=== PATIENT | female | born 1980 | race Two or more races ===

== ENCOUNTER 2020-07-03 12:38 | Emergency (ER) | payer OTHER, SELFPAY ==
--- NOTE | 2020-07-03 | US_ITS ---
EXAMINATION: US DIAGNOSTIC ULTRASOUND BREAST, LEFT CLINICAL INFORMATION: 40-year-old female with palpable fullness and tenderness left breast. Emergency room visit. COMPARISON: None. TECHNIQUE: Ultrasound left breast is targeted to the area of clinical concern using grayscale imaging and color Doppler. Imaging is performed emergently at the hospital to the emergency department and [facility]. FINDINGS: There is no solid mass or architectural abnormality. No skin thickening or edema tracking in soft tissue planes. No definite focal duct ectasia. There is a cyst 6:00 position 1 cm from nipple measuring 0.9 x 0.8 x 0.4 cm and residing within 0.5 cm from the skin. This shows fine internal septation and some geographic internal echogenicity without associated peripheral or internal color flow. There is another less complicated cyst 6:00 position 3 cm from nipple with several incomplete avascular fine internal septations and overall size 1.5 x 1.5 x 0.9 cm. This resides within 1.5 cm of the skin. IMPRESSION: There are 2 complicated cysts 6:00 position, the smaller has geographic internal echogenicity without color flow, possibly apocrine metaplasia. No solid mass or architectural abnormality. No edema are in soft tissue planes. ASSESSMENT: BI-RADS 3: Probably Benign RECOMMENDATION: 1. Patient's pain should be managed based on the clinical impression. 2. Diagnostic bilateral 3-D digital breast tomosynthesis. 3. Short interval 6-month follow-up targeted left breast ultrasound to reassess probable benign complicated cyst. This patient's information was entered into a reminder system with a target due date for their next mammogram.
[2020-07-03 13:14] VITALS: BP 102/64; PULSE 75; RESP 14; TEMP 37; O2SAT 95; BMI 25.6
--- NOTE | 2020-07-03 13:28 | ED_ITS ---
HPI - General Adult General Chief complaint: General Medical Stated complaint: breast pain Time Seen by Provider: 07/03/20 13:17 Source: patient Mode of arrival: ambulatory Limitations: no limitations History of Present Illness HPI narrative: Left breast pain, tenderness 'feels a bump x several days. Does not have PCP or [facility]. No fevers/chills. Also c/o cough, tested for COVID 06/25 as both son and are positive. No SOB/CP. Onset (ago): day(s) Location: chest (left breast ) Radiation: non-radiation Severity: mild Quality: sharp Pain Consistency: constant Relieving factors: none Exacerbating factors: none Associated symptoms: denies other symptoms Related Data Allergies Allergy/AdvReac Type Severity Reaction Status Date / Time midazolam [From VERSED] Allergy Unknown UNKNOWN Unverified 06/25/20 10:15 Opioids - Morphine Analogues Allergy Unknown HIVES Unverified 06/25/20 10:15 [OPIOIDS - MORPHINE ANALOGUES] sulfamethoxazole Allergy Unknown UNKNOWN Unverified 06/25/20 10:15 [From BACTRIM] trimethoprim [From BACTRIM] Allergy Unknown UNKNOWN Unverified 06/25/20 10:15 aspirin [ASA] Allergy Unknown Verified 07/03/20 13:14 Penicillins AdvReac Gastrointestinal Verified 07/03/20 13:14 Upset Review of Systems Review of Systems: Yes all other systems are reviewed and are negative Constitutional: Constitutional: Reports no additional constitutional complaints, Denies body ache(s), Denies chills, Denies fever(s), Denies headache(s) and Denies weakness Eyes: Eyes: Reports no additional eye complaints and Denies change in vision ENT: Reports system reviewed and no additional complaints, except as documented, Denies dizziness, Denies headache(s), Denies nasal congestion, Denies nasal discharge and Denies neck pain Cardiovascular: Cardiovascular: Reports no additional cardiovascular complaints, Denies chest pain, Denies leg edema and Denies dyspnea Respiratory: Respiratory: Reports no additional respiratory complaints, Denies change in phlegm color, Denies chest congestion, Reports cough, Denies hemoptysis, Denies excessive phlegm production and Denies dyspnea Gastrointestinal: Gastrointestinal: Reports no additional gastrointestinal complaints, Denies abdominal pain, Denies diarrhea, Denies nausea and Denies vomiting Genitourinary: Genitourinary: Reports no additional female genitourinary complaints and Denies urinary incontinence Musculoskeletal: Musculoskeletal: Reports no additional musculoskeletal complaints, Denies back pain, Denies arthralgias, Denies joint swelling, Denies neck pain, Denies numbness and Denies tingling Integumentary/Breasts: Skin/Breast: Reports system reviewed and no additional complaints, except as docu, Denies breast skin changes, Reports breast pain, Re ports breast mass, Denies change in breast shape and Denies rash Neurologic: Reports system reviewed and no additional complaints, except as documented, Denies Abnormal speech present, Denies dizziness, Denies head ache(s), Denies numbness, Denies tingling and Denies weakness PMFSH Past Medical History Attestation statement: The following information was validated with the patient. Source: obtained from family and nursing notes reviewed Medical History Asthma Cervical cancer Epilepsy Hypotension Miscarriage Other cyst of bone, right shoulder SVT (supraventricular tachycardia) Surgical History [place] teeth extracted Social History Social History Smoked in Last 30 Days: No Use of substances other than those prescribed or required for medical reasons: No Advance Directives: No Advance Directives Information Provided: Yes Physical Exam Vital Signs and I&O and Narrative: Vital Signs and I&O: Vital Signs Temp 98.6 F 07/03/20 13:14 Pulse 75 07/03/20 13:14 Resp 14 07/03/20 13:14 BP 102/64 07/03/20 13:14 Pulse Ox 95 07/03/20 13:14 Intake & Output 07/02/20 07/03/20 07/03/20 18:59 06:59 18:59 Weight 63.503 kg Body Mass Index 25.6 Const: General: cooperative, healthy appearing, comfortable and no acute distress Orientation/consciousness: patient oriented x3 Limitations: no limitations HENMT: Head: Yes normal to inspection Ears: hearing grossly normal bilaterally General nose exam: Normal external nose present Face and sinus: Yes normal facial exam Mouth: Normal oral and palatal mucosa present Throat: Yes posterior oropharynx normal Eyes: General: appearance normal, both eyes and all related structures Pupils: Equal, round and reactive pupils present Neck: Neck: Yes normal visual inspection Chest: Other: small firm lump noted to 6 o clock position just below areola. Tender to palp. No fluctuance or induration, no drainage from nipple or discoloration Chest palpation & inspection: normal inspection of the chest Breast/axilla inspection: normal inspection of the breasts and normal inspection of the axillae Breast/axilla palpation: normal palpation of the axillae and no axillary lymphadenopathy Resp: Effort & Inspection: normal respiratory effort Auscultation: clear to auscultation bilaterally Cardio: Rate: regular rate Rhythm: regular rhythm Peripheral pulses: Peripheral pulses 2+ throughout GI: Inspection: Yes normal to inspection Palpation (GI): Soft to palpation and nontender Auscultation: normal bowel sounds Back/Spine/Pelvis: Thoracic/Lumbar Spine: thoracic and lumbar spine normal to inspection Skin: General skin exam: no rashes or lesions noted Neuro: General: patient oriented x3, no focal motor deficits and normal sensation to monofilament Cranial nerves: Yes Equal, round and reactive pupils present Cognition (Neuro): normal cognition Speech: No Abnormal speech present Gait exam (Neuro): Normal gait present Motor exam (neuro): 5/5 motor strength present throughout Extrem: General: Yes normal to inspection Medical Decision Making MDM Narrative Medical decision making narrative: Left breast lump, will do US to r/o abscess. Also c/o cough-LS CTA. Stable saturation, recent COVID exposure with negative test. May be false negative test. 1530- ultrasound shows 2 complicated cysts 6:00 position, the smaller has geographic internal echogenicity without color flow, possibly apocrine metaplasia. No solid mass or architectural abnormality. No edema are in soft tissue planes. discussed findings with the patient. She can [facility]. also requesting repeat COVID testing. This was sent. Reviewed worrisome signs and symptoms and when to return to the emergency department. Comfortable discharge home. Imaging Data breast ultrasound: Attestation: I personally reviewed and interpreted this imaging study as follows: Radiologist's impression: FINDINGS: There is no solid mass or architectural abnormality. No skin thickening or edema tracking in soft tissue planes. No definite focal duct ectasia. There is a cyst 6:00 position 1 cm from nipple measuring 0.9 x 0.8 x 0.4 cm and residing within 0.5 cm from the skin. This shows fine internal septation and some geographic internal echogenicity without associated peripheral or internal color flow. There is another less complicated cyst 6:00 position 3 cm from nipple with several incomplete avascular fine internal septations and overall size 1.5 x 1.5 x 0.9 cm. This resides within 1.5 cm of the skin. IMPRESSION: There are 2 complicated cysts 6:00 position, the smaller has geographic internal echogenicity without color flow, possibly apocrine metaplasia. No solid mass or architectural abnormality. No edema are in soft tissue planes. ASSESSMENT: BI-RADS 3: Probably Benign RECOMMENDATION: 1. Patient's pain should be managed based on the clinical impression. 2. Diagnostic bilateral 3-D digital breast tomosynthesis. 3. Short interval 6-month follow-up targeted left breast ultrasound to reassess probable benign complicated cyst. This patient's information was entered into a reminder system with a target due date for their next mammogram. Discharge Plan Discharge Clinical Impression: Benign breast cyst in female Qualifiers: Laterality: left Qualified Code(s): N60.02 - Solitary cyst of left breast Patient Disposition: Home, Self-Care Instructions: Fibrocystic Breast Changes (ED) Additional Instructions: follow-up with the [facility] heat to the area motrin or tylenol as discussed your covid test will take 1-2 days [facility] [phone] Referrals: Physician,None [Primary Care Provider] - 2 days Interventions: ED Discharge Assessment Last Done: 07/03/20 15:57 Discharge Date/Time: 07/03/20 15:59
== END 2020-07-03 15:59 | disposition home or self-care (01) ==
PROVIDERS: Nurse Practitioner Family; Emergency Provider Emergency Medicine
DX: N60.02 Solitary cyst of left breast (principal); Z20.828 Contact with and (suspected) exposure to other viral communicable diseases; Z85.41 Personal history of malignant neoplasm of cervix uteri; Z79.82 Long term (current) use of aspirin; Z79.899 Other long term (current) drug therapy
CPT/HCPCS: 76642; 87635; 99284

== ENCOUNTER 2020-07-10 14:10 | Outpatient (REF) | payer OTHER, SELFPAY ==
[2020-07-10 15:11] LABS: MANUAL DIFF FLAG NO
[2020-07-10 15:15] LABS: Basophils Percent Auto 0.4 % (0-2); Eosinophils Absolute Auto 0.1 X10*3/uL (0.0-0.4); Eosinophils Percent Auto 1.1 % (0-4); Hematocrit 45.8 % (37-47); Hemoglobin 15.8 g/dl (12.0-16.0); Imm Gran Abs Auto 0.05 X10*3/uL (0.00-0.03); Imm Gran Pct Auto 0.6 % (0.0-0.4); Lymphocytes Absolute Auto 2.2 X10*3/uL (1.2-4.9); Lymphocytes Percent Auto 26.5 % (20-40); Mean Corpuscular HGB Conc 34.5 g/dl (31.0-35.0); Mean Corpuscular Hemoglobin 32.4 pg (27.0-33.0); Mean Corpuscular Volume 93.9 fL (80-98); Monocytes Absolute Auto 0.5 X10*3/uL (0.1-1.2); Neutrophils Absolute Auto 5.4 X10*3/uL (2.0-8.3); Neutrophils Percent Auto 65.4 % (45-73); Platelet Count 272 X10*3/uL (160-400); Red Blood Count 4.88 X10*6/uL (4.20-5.50); Red Cell Distribution Width 12.3 % (11.0-16.0); White Blood Count 8.2 X10*3/uL (4.8-10.8)
[2020-07-10 15:54] LABS: Alanine Aminotransferase 18 U/L (0-31); Albumin Level 4.3 g/dL (3.5-5.0); Alkaline Phosphatase 65 U/L (39-117); Anion Gap 10 (12-20); Aspartate Amino Transferase 20 U/L (5-31); Bilirubin Total 0.6 mg/dL (0.0-1.0); Blood Urea Nitrogen 8 mg/dL (9-16); C Reactive Protein 0.61 mg/dL (< or = 0.50); Calcium 9.1 mg/dL (8.4-10.2); Carbon Dioxide 28 mmol/L (22-29); Chloride 106 mmol/L (96-108); Cholesterol 199 mg/dL; Estimated Glomerular Filt Rate > 60; Glucose Random 81 mg/dL (60-115); Potassium 4.4 mmol/l (3.3-5.1); Sodium 140 mmol/L (135-145)
[2020-07-10 16:14] LABS: Free T4 (Free Thyroxine) 1.02 ng/dL (0.71-1.85); Thyroid Stimulating Hormone 0.82 mIU/mL (0.32-4.0)
[2020-07-10 16:35] LABS: Vitamin B12 466 pg/mL (200-900)
[2020-07-11 18:32] LABS: Lutenizing Hormone 11.3 mIU/mL
== END 2020-07-10 14:11 | disposition home or self-care (01) ==
LOC: HO.LAB 14:10
PROVIDERS: PCP Internal Medicine; Visit Provider Internal Medicine
DX: G40.909 Epilepsy, unspecified, not intractable, without status epilepticus (principal); R53.83 Other fatigue; J45.909 Unspecified asthma, uncomplicated; R35.1 Nocturia
CPT/HCPCS: 36415; 80053; 82465; 82607; 83001; 83002; 84439; 84443; 85025; 86140

== ENCOUNTER → 2020-07-22 13:17 | Outpatient (REF) | payer OTHER, SELFPAY ==
--- NOTE | 2020-07-22 13:30 | ECG_ITS ---
Hook-up date: 2020-07-22 13:35:00 Duration: :01:00 Test Indications: HX SVT Medications: [id number] QRS complexes * Ventricular ectopics which represent % of total QRS comp. 17 Supraventricular ectopics which represent <1 % of total QRS comp. * Paced QRS complexs which represent % of total QRS comp. VENTRICULAR ECTOPY * Isolated * Bigeminal Cycles * Couplets * Runs * Beats in Runs * Beats LONGEST at * BPM at :: -- * Beats FASTEST at * BPM at :: -- SUPRAVENTRICULAR ECTOPY 15 Isolated 1 Couplets 0 Runs 0 Beats in Runs * Beats LONGEST at * BPM at :: -- * Beats FASTEST at * BPM at :: -- HEART RATES 49 MIN at 04:35:04 2020-07-23 71 AVG 125 MAX at 13:55:46 2020-07-22 LONGEST RR 1.2960 secs at 04:34:58 2020-07-23 S-T LEVELS Channel 1 - 128 mm at 13:35:00 2020-07-22 - 128 mm at 13:35:00 2020-07-22 Channel 2 - 128 mm at 13:35:00 2020-07-22 - 128 mm at 13:35:00 2020-07-22 Channel 3 - 128 mm at 03:25:41 -- - 128 mm at 03:25:41 Baseline rhythm is nsr. There are rare pac's but no sustained runs of svt, No pvc's noted. min and max hr were within acceptable limits. no entries in diary. nml test without indications for any intervention Referred By: Zac Segura Overread By: SHAN SEGURA MD
== END ==
LOC: HO.CARD 13:17
PROVIDERS: PCP Internal Medicine; Visit Provider Internal Medicine
DX: I47.1 Supraventricular tachycardia (principal)
CPT/HCPCS: 93226

== ENCOUNTER 2020-07-23 11:37 | Outpatient (REF) | payer OTHER, SELFPAY ==
--- NOTE | 2020-07-23 | MM_ITS ---
EXAMINATION: MM DIAGNOSTIC DIGITAL BREAST TOMOSYNTHESIS, BILATERAL US DIAGNOSTIC ULTRASOUND BREAST, LEFT CLINICAL INFORMATION: 40-year-old with pain inferior periareolar left breast, recent ER visit with targeted ultrasound. No prior mammography. No family history breast cancer. No discharge. The lifetime risk of breast cancer based on the Tyrer-Cuzick Model is 12%. COMPARISON: Targeted left breast ultrasound 07/03/2020. No prior mammography (current exam represents baseline diagnostic mammography). TECHNIQUE: Digital breast tomosynthesis is performed in both the craniocaudal and mediolateral oblique views along with computer-aided detection (CAD). Synthesized 2D images are generated from the tomosynthesis. Additional exaggerated left CC view is provided. Ultrasound left breast is targeted to the medial breast as follow-up to today's mammographic finding. In addition, repeat imaging performed subareolar inferior left breast in area of symptoms. Grayscale imaging and color Doppler are performed without and with harmonics. FINDINGS: The breasts are heterogeneously dense, which may obscure small masses (ACR BI-RADS breast composition Category c). There is oval smooth mass with obscured margins mid 8:00 left breast measuring approximately 1.8 x 1.4 cm. Smaller nodularity is noted 6:00 retroareolar breast corresponding to the cyst seen on recent targeted ultrasound. The right breast shows no mass. Neither breast shows architectural abnormality. The bilateral axilla and skin contours are unremarkable. There is no skin thickening or coarsening of the Bryon's ligaments. Ultrasound targeted to the medial breast demonstrates a simple cyst 9:00 position 4 cm from nipple corresponding to the mass on mammography and measuring 1.6 x 1.5 x 1.0 cm. Cyst is anechoic with increased through-transmission of sound and circumscribed margins. Additional imaging in area of pain anterior inferior left breast again demonstrates a complicated cyst 6:00 position 3 cm from nipple with avascular internal septations measuring 1.4 cm. Again, there is a 1 cm complicated cyst subareolar 6:00 position with some peripheral geographic echogenicity likely apocrine. There is no peripheral or internal color flow. There is no intrahepatic ductal color flow. No skin thickening or edema tracking in the soft tissue planes. No abscess. Results are discussed with the patient at time of visit. Management plan is for short interval six-month follow-up left ultrasound for the anterior inferior complicated cysts initially planned. Mammography in 12 months. MM/MM tomosynthesis diagnostic BI IMPRESSION: 1. No mammographic evidence of malignancy or inflammatory changes. 2. Mildly complicated cyst anterior inferior left breast similar to recent emergency ultrasound 07/03/2020. Benign cyst 9:00 left breast. No inflammatory changes. ASSESSMENT: BI-RADS 3: Probably Benign RECOMMENDATION: 1. Patient's breast pain should be managed based on the clinical impression. 2. Otherwise, follow-up targeted left breast ultrasound in 6 months. This patient's information was entered into a reminder system with a target due date for their next mammogram.
== END 2020-07-23 11:38 | disposition home or self-care (01) ==
LOC: HO.MAMMO 11:37
PROVIDERS: PCP Internal Medicine; Visit Provider Internal Medicine
DX: N63.15 Unspecified lump in the right breast, overlapping quadrants (principal)
CPT/HCPCS: 76642; 77062; 77066

== ENCOUNTER 2020-11-04 10:29 | Outpatient (REF) | payer OTHER, SELFPAY ==
--- NOTE | ~2020-11-04 | XR_ITS ---
EXAMINATION: XR CERVICAL SPINE XR THORACIC SPINE XR LUMBAR SPINE CLINICAL INFORMATION: Pain. Question osteoarthritis. COMPARISON: None TECHNIQUE: AP, lateral, open-mouth, and bilateral oblique views of the cervical spine. AP and lateral views of the thoracic spine. AP, lateral, and coned-down views of the lumbar spine. FINDINGS: CERVICAL SPINE: Anterior fusion hardware at C4-C5. No acute hardware or osseous fracture. No periarticular lucency to suggest loosening or infection. Osseous fusion of the C4 and C5 vertebral bodies. Straightening of the normal cervical lordosis, which may be positional or related to muscular spasm. No acute fracture or subluxation. No loss of vertebral body or intervertebral disc height. No lytic or blastic osseous lesion. Unremarkable prevertebral soft tissues. Normal atlantoaxial alignment. THORACIC SPINE: Normal vertebral body alignment. The thoracic kyphosis is maintained. No acute fracture or subluxation. No loss of vertebral body or intervertebral disc height. No lytic or blastic osseous lesion. The visualized lungs are clear. No abnormal soft tissue calcification. LUMBAR SPINE: Normal vertebral body alignment. The lumbar lordosis is maintained. Minimal loss of anterior vertebral body height at L3, which could indicate a minimal age indeterminant compression fracture. Superior endplate Schmorl's nodes at L2, L3, and L4. Tiny anterior endplate osteophytes at L3-L4. No concerning lytic or blastic osseous lesion. No abnormal soft tissue calcification. XR/XR cervical spine min 6V IMPRESSION: Cervical spine: Anterior fusion hardware at C4-C5 without evidence of complication. No acute osseous abnormality. Straightening of the normal cervical lordosis, which may be positional or related to muscular spasm. Thoracic spine: Unremarkable examination. Lumbar spine: Minimal loss of anterior vertebral body height at L3, which could indicate a minimal age indeterminate compression fracture. Superior endplate Schmorl's nodes at L2, L3, and L4. Minimal degenerative disc disease at L3-L4.
--- NOTE | ~2020-11-04 | XR_ITS ---
EXAMINATION: XR KNEE, RIGHT XR KNEE, LEFT CLINICAL INFORMATION: Edema. Question osteoarthritis. COMPARISON: None TECHNIQUE: AP, tunnel, lateral, and sunrise views of the right and left knee. FINDINGS: RIGHT KNEE: Tiny patellofemoral marginal osteophytes. No joint space narrowing. No osseous erosion. No fracture or dislocation. No significant joint effusion. Tiny superior patellar enthesophytes. LEFT KNEE: Tiny patellofemoral marginal osteophytes. No joint space narrowing. No osseous erosion. No fracture or dislocation. No significant joint effusion. No abnormal soft tissue calcification. XR/XR knee RT 4V IMPRESSION: Right knee: Minimal patellofemoral arthrosis. Left knee: Minimal patellofemoral arthrosis.
--- NOTE | ~2020-11-04 | XR_ITS ---
EXAMINATION: XR HAND, RIGHT XR HAND, LEFT CLINICAL INFORMATION: Pain. Question osteoarthritis. COMPARISON: None TECHNIQUE: AP, oblique, and lateral views of the right and left hand. FINDINGS: Right hand: No fracture or dislocation. Normal carpal alignment. No significant joint space narrowing or marginal osteophytes. No osseous erosion. No periarticular osteopenia. No abnormal soft tissue calcification. Left hand: No fracture or dislocation. Normal carpal alignment. No significant joint space narrowing or marginal osteophytes. No osseous erosion. No periarticular osteopenia. No abnormal soft tissue calcification. XR/XR hand LT 2V IMPRESSION: Right hand: Unremarkable examination. Left hand: Unremarkable examination.
--- NOTE | ~2020-11-04 | XR_ITS ---
EXAMINATION: XR KNEE, RIGHT XR KNEE, LEFT CLINICAL INFORMATION: Edema. Question osteoarthritis. COMPARISON: None TECHNIQUE: AP, tunnel, lateral, and sunrise views of the right and left knee. FINDINGS: RIGHT KNEE: Tiny patellofemoral marginal osteophytes. No joint space narrowing. No osseous erosion. No fracture or dislocation. No significant joint effusion. Tiny superior patellar enthesophytes. LEFT KNEE: Tiny patellofemoral marginal osteophytes. No joint space narrowing. No osseous erosion. No fracture or dislocation. No significant joint effusion. No abnormal soft tissue calcification. XR/XR knee LT 4V IMPRESSION: Right knee: Minimal patellofemoral arthrosis. Left knee: Minimal patellofemoral arthrosis.
--- NOTE | ~2020-11-04 | XR_ITS ---
EXAMINATION: XR HAND, RIGHT XR HAND, LEFT CLINICAL INFORMATION: Pain. Question osteoarthritis. COMPARISON: None TECHNIQUE: AP, oblique, and lateral views of the right and left hand. FINDINGS: Right hand: No fracture or dislocation. Normal carpal alignment. No significant joint space narrowing or marginal osteophytes. No osseous erosion. No periarticular osteopenia. No abnormal soft tissue calcification. Left hand: No fracture or dislocation. Normal carpal alignment. No significant joint space narrowing or marginal osteophytes. No osseous erosion. No periarticular osteopenia. No abnormal soft tissue calcification. XR/XR hand RT min 3V IMPRESSION: Right hand: Unremarkable examination. Left hand: Unremarkable examination.
--- NOTE | ~2020-11-04 | XR_ITS ---
EXAMINATION: XR CERVICAL SPINE XR THORACIC SPINE XR LUMBAR SPINE CLINICAL INFORMATION: Pain. Question osteoarthritis. COMPARISON: None TECHNIQUE: AP, lateral, open-mouth, and bilateral oblique views of the cervical spine. AP and lateral views of the thoracic spine. AP, lateral, and coned-down views of the lumbar spine. FINDINGS: CERVICAL SPINE: Anterior fusion hardware at C4-C5. No acute hardware or osseous fracture. No periarticular lucency to suggest loosening or infection. Osseous fusion of the C4 and C5 vertebral bodies. Straightening of the normal cervical lordosis, which may be positional or related to muscular spasm. No acute fracture or subluxation. No loss of vertebral body or intervertebral disc height. No lytic or blastic osseous lesion. Unremarkable prevertebral soft tissues. Normal atlantoaxial alignment. THORACIC SPINE: Normal vertebral body alignment. The thoracic kyphosis is maintained. No acute fracture or subluxation. No loss of vertebral body or intervertebral disc height. No lytic or blastic osseous lesion. The visualized lungs are clear. No abnormal soft tissue calcification. LUMBAR SPINE: Normal vertebral body alignment. The lumbar lordosis is maintained. Minimal loss of anterior vertebral body height at L3, which could indicate a minimal age indeterminant compression fracture. Superior endplate Schmorl's nodes at L2, L3, and L4. Tiny anterior endplate osteophytes at L3-L4. No concerning lytic or blastic osseous lesion. No abnormal soft tissue calcification. XR/XR lumbar spine 2-3V IMPRESSION: Cervical spine: Anterior fusion hardware at C4-C5 without evidence of complication. No acute osseous abnormality. Straightening of the normal cervical lordosis, which may be positional or related to muscular spasm. Thoracic spine: Unremarkable examination. Lumbar spine: Minimal loss of anterior vertebral body height at L3, which could indicate a minimal age indeterminate compression fracture. Superior endplate Schmorl's nodes at L2, L3, and L4. Minimal degenerative disc disease at L3-L4.
--- NOTE | ~2020-11-04 | XR_ITS ---
EXAMINATION: XR CERVICAL SPINE XR THORACIC SPINE XR LUMBAR SPINE CLINICAL INFORMATION: Pain. Question osteoarthritis. COMPARISON: None TECHNIQUE: AP, lateral, open-mouth, and bilateral oblique views of the cervical spine. AP and lateral views of the thoracic spine. AP, lateral, and coned-down views of the lumbar spine. FINDINGS: CERVICAL SPINE: Anterior fusion hardware at C4-C5. No acute hardware or osseous fracture. No periarticular lucency to suggest loosening or infection. Osseous fusion of the C4 and C5 vertebral bodies. Straightening of the normal cervical lordosis, which may be positional or related to muscular spasm. No acute fracture or subluxation. No loss of vertebral body or intervertebral disc height. No lytic or blastic osseous lesion. Unremarkable prevertebral soft tissues. Normal atlantoaxial alignment. THORACIC SPINE: Normal vertebral body alignment. The thoracic kyphosis is maintained. No acute fracture or subluxation. No loss of vertebral body or intervertebral disc height. No lytic or blastic osseous lesion. The visualized lungs are clear. No abnormal soft tissue calcification. LUMBAR SPINE: Normal vertebral body alignment. The lumbar lordosis is maintained. Minimal loss of anterior vertebral body height at L3, which could indicate a minimal age indeterminant compression fracture. Superior endplate Schmorl's nodes at L2, L3, and L4. Tiny anterior endplate osteophytes at L3-L4. No concerning lytic or blastic osseous lesion. No abnormal soft tissue calcification. XR/XR thoracic spine 2V IMPRESSION: Cervical spine: Anterior fusion hardware at C4-C5 without evidence of complication. No acute osseous abnormality. Straightening of the normal cervical lordosis, which may be positional or related to muscular spasm. Thoracic spine: Unremarkable examination. Lumbar spine: Minimal loss of anterior vertebral body height at L3, which could indicate a minimal age indeterminate compression fracture. Superior endplate Schmorl's nodes at L2, L3, and L4. Minimal degenerative disc disease at L3-L4.
[2020-11-04 13:43] LABS: C Reactive Protein 0.85 mg/dL (< or = 0.50); Rheumatoid Factor < 15.0 IU/mL (<15.0)
[2020-11-05 09:53] LABS: Calcium (PTHI) 9.1 mg/dL (8.6-10.2); PTHI 59 pg/mL (14-64)
[2020-11-06 11:57] LABS: Anti Nuclear Antibody Pattern Nuclear, Homogeneous; Anti Nuclear Antibody Screen POSITIVE (NEGATIVE); Anti Nuclear Antibody Titer 1:40 titer
== END 2020-11-04 10:30 | disposition home or self-care (01) ==
LOC: HO.LAB 10:29
PROVIDERS: PCP Internal Medicine; Visit Provider Internal Medicine
DX: M54.9 Dorsalgia, unspecified (principal); M54.2 Cervicalgia; M79.643 Pain in unspecified hand; R60.9 Edema, unspecified
CPT/HCPCS: 36415; 72052; 72070; 72100; 73120; 73130; 73564; 83970; 86038; 86039; 86140; 86431

== ENCOUNTER 2020-11-15 15:16 | Outpatient (REF) | payer OTHER, SELFPAY ==
[2020-11-15 16:28] LABS: MANUAL DIFF FLAG NO
[2020-11-15 16:36] LABS: Basophils Percent Auto 0.2 % (0-2); Eosinophils Absolute Auto 0.1 X10*3/uL (0.0-0.4); Eosinophils Percent Auto 0.9 % (0-4); Hematocrit 46.8 % (37-47); Hemoglobin 16.1 g/dl (12.0-16.0); Imm Gran Abs Auto 0.04 X10*3/uL (0.00-0.03); Imm Gran Pct Auto 0.4 % (0.0-0.4); Lymphocytes Absolute Auto 2.2 X10*3/uL (1.2-4.9); Lymphocytes Percent Auto 24.1 % (20-40); Mean Corpuscular HGB Conc 34.4 g/dl (31.0-35.0); Mean Corpuscular Hemoglobin 31.4 pg (27.0-33.0); Mean Corpuscular Volume 91.4 fL (80-98); Mean Platelet Volume 9.6 fL (9.4-12.3); Monocytes Absolute Auto 0.5 X10*3/uL (0.1-1.2); Monocytes Percent Auto 5.7 % (2-11); Neutrophils Absolute Auto 6.2 X10*3/uL (2.0-8.3); Neutrophils Percent Auto 68.7 % (45-73); Platelet Count 260 X10*3/uL (160-400); Red Blood Count 5.12 X10*6/uL (4.20-5.50); Red Cell Distribution Width 11.9 % (11.0-16.0); White Blood Count 9.1 X10*3/uL (4.8-10.8)
[2020-11-15 16:57] LABS: Alanine Aminotransferase 12 U/L (0-31); Albumin Level 4.5 g/dL (3.5-5.0); Alkaline Phosphatase 61 U/L (39-117); Anion Gap 15 (12-20); Aspartate Amino Transferase 14 U/L (5-31); Bilirubin Total 0.7 mg/dL (0.0-1.0); Blood Urea Nitrogen 8 mg/dL (9-16); C Reactive Protein 0.53 mg/dL (< or = 0.50); Carbon Dioxide 24 mmol/L (22-29); Chloride 108 mmol/L (96-108); Estimated Glomerular Filt Rate > 60; Glucose Random 80 mg/dL (60-115); Glucose Urine UA NEG (NEG); Leukocyte Esterase Urine TRACE (NEG); Nitrite Urine NEG (NEG); Sodium 143 mmol/L (135-145); Specific Gravity - Urine >= 1.030 (1.005-1.025); Total Protein 7.2 g/dL (6.5-8.0); UACC Culture Trigger YES; Urine Blood 1+ (NEG); Urine Ketones NEG (NEG); Urine Protein NEG (NEG-TRACE)
[2020-11-15 16:58] LABS: Color Urine YELLOW
[2020-11-15 16:59] LABS: Appearance Urine CLOUDY
[2020-11-15 17:10] LABS: Bacteria Urine 2+ /LPF; Mucus Urine 2+ /LPF; Squamous Epithelial Cell Urine 2+ /LPF
[2020-11-15 17:13] LABS: HCG Quantitative < 2 mIU/mL
== END 2020-11-15 15:17 | disposition home or self-care (01) ==
LOC: HO.LAB 15:16
PROVIDERS: PCP Internal Medicine; Visit Provider Internal Medicine
DX: R10.9 Unspecified abdominal pain (principal); N91.2 Amenorrhea, unspecified; Z87.898 Personal history of other specified conditions
CPT/HCPCS: 36415; 80053; 81001; 81003; 84702; 85025; 86140; 87086

== ENCOUNTER 2020-11-25 13:57 | Outpatient (REF) | payer OTHER, SELFPAY ==
--- NOTE | ~2020-11-25 | US_ITS ---
EXAMINATION: ULTRASOUND PELVIS COMPLETE CLINICAL INFORMATION: Pelvic pain COMPARISON: None TECHNIQUE: Transabdominal and transvaginal ultrasound of the pelvis is performed. FINDINGS: The uterus is anteverted and anteflexed measuring 7.1 cm in length, 3.0 cm in AP and 4.2 cm in transverse dimension. Endometrial thickness is 0.73 cm. The uterus is homogeneous in echotexture. Small nabothian cysts are seen in the cervix. Right ovary measures 1.85 x 1.79 minutes 2.36 cm and volume 4.09 mL. There is anechoic cyst measuring 1.4 x 1.2 x 1.2 cm. Left ovary measures 2.82 x 2.69 x 3.8 cm and volume 20.4 mL. There is anechoic cyst measuring 3.5 x 2.5 x 3.5 cm. There is no free fluid in the cul-de-sac. US/US pelvic complete IMPRESSION: Small nabothian cysts in the cervix. The uterus is unremarkable. Bilateral small ovarian cysts.
--- NOTE | ~2020-11-25 | US_ITS ---
EXAMINATION: ULTRASOUND PELVIS COMPLETE CLINICAL INFORMATION: Pelvic pain COMPARISON: None TECHNIQUE: Transabdominal and transvaginal ultrasound of the pelvis is performed. FINDINGS: The uterus is anteverted and anteflexed measuring 7.1 cm in length, 3.0 cm in AP and 4.2 cm in transverse dimension. Endometrial thickness is 0.73 cm. The uterus is homogeneous in echotexture. Small nabothian cysts are seen in the cervix. Right ovary measures 1.85 x 1.79 minutes 2.36 cm and volume 4.09 mL. There is anechoic cyst measuring 1.4 x 1.2 x 1.2 cm. Left ovary measures 2.82 x 2.69 x 3.8 cm and volume 20.4 mL. There is anechoic cyst measuring 3.5 x 2.5 x 3.5 cm. There is no free fluid in the cul-de-sac. US/US transvaginal IMPRESSION: Small nabothian cysts in the cervix. The uterus is unremarkable. Bilateral small ovarian cysts.
== END 2020-11-25 13:58 | disposition home or self-care (01) ==
LOC: HO.HMGCX 13:57
PROVIDERS: PCP Internal Medicine; Visit Provider Internal Medicine
DX: R10.2 Pelvic and perineal pain (principal); N91.2 Amenorrhea, unspecified
CPT/HCPCS: 76830; 76856

== ENCOUNTER 2020-12-05 07:47 | Outpatient (REF) | payer OTHER, SELFPAY ==
--- NOTE | ~2020-12-05 | US_ITS ---
EXAMINATION: US ABDOMEN COMPLETE CLINICAL INFORMATION: Right upper quadrant abdominal pain. Rule out gallbladder disease. COMPARISON: None TECHNIQUE: Real-time imaging of the abdominal viscera. FINDINGS: PANCREAS: The visualized pancreatic head and body are unremarkable. The tail is obscured by overlying bowel gas. ABDOMINAL AORTA: The proximal, mid, and distal segments are normal in caliber. INFERIOR VENA CAVA: Visualized portions are normal. LIVER: Normal. The liver is normal in size. The liver contour is normal. Parenchymal echogenicity is normal. No focal hepatic lesion. There is no intrahepatic biliary duct dilatation seen. GALLBLADDER: Normal. The gallbladder is physiologically distended without evidence of stones, sludge, polyps, wall thickening or pericholecystic fluid. COMMON BILE DUCT: Normal in caliber measuring 0.5 cm in diameter. RIGHT KIDNEY: Normal. No hydronephrosis. No renal calculi or focal parenchymal lesions. The kidney measures 10.4 cm in maximum dimension. LEFT KIDNEY: Normal. No hydronephrosis. No renal calculi or focal parenchymal lesions. The kidney measures 10.6 cm in maximum dimension. SPLEEN: Normal. The spleen measures 8.8 cm in maximum dimension. FREE FLUID: None. US/US abdomen complete IMPRESSION: No cholelithiasis, gallbladder wall thickening, or pericholecystic free fluid to suggest acute cholecystitis.
== END 2020-12-05 07:48 | disposition home or self-care (01) ==
LOC: HO.US 07:47
PROVIDERS: PCP Internal Medicine; Visit Provider Internal Medicine
DX: R10.11 Right upper quadrant pain (principal)
CPT/HCPCS: 76700

== ENCOUNTER 2020-12-05 08:20 | Outpatient (REF) | payer OTHER, SELFPAY | END 2020-12-05 08:21 | disposition home or self-care (01) | LOC: HO.LAB 08:20 | PROVIDERS: Visit Provider Internal Medicine | DX: Z20.822 Contact with and (suspected) exposure to COVID-19 (principal) | CPT/HCPCS: 36415; C9803; U0003; U0005 ==

== ENCOUNTER 2020-12-30 12:37 | Outpatient (REF) | payer OTHER, SELFPAY ==
--- NOTE | ~2020-12-30 | US_ITS ---
EXAMINATION: US DIAGNOSTIC ULTRASOUND BREAST, LEFT CLINICAL INFORMATION: Probable benign complicated cysts 6:00 periareolar left breast. Patient notes premenopausal cousin recently diagnosed with breast cancer. COMPARISON: Targeted ultrasound left breast 07/23/2020 and targeted ultrasound left breast from emergency rooms visit 07/03/2020, mammography 07/23/2020 (baseline diagnostic). TECHNIQUE: Ultrasound left breast is performed using grayscale imaging and color Doppler without and with harmonics. Imaging is targeted to the areas previously imaged with ultrasound. FINDINGS: There is no interval focal suspicious finding. No solid mass or architectural abnormality or focal duct ectasia. There is no skin thickening or edema tracking in soft tissue planes. The subareolar cyst 6:00 position 1 cm from nipple measures 0.8 x 0.5 cm compared with prior measurements 0.9 x 0.8 x 0.4 cm. There is no definite peripheral internal geographic echogenicity is noted on prior studies. Rather, finding may be related to macrolobulated shape with partial volume imaging of the rim. There is no interval solid component or internal or peripheral vascularity. The mildly complicated cyst 6:00 position 3 cm from nipple measures 1.4 x 0.6 cm. This shows fine internal avascular septation. No interval septation thickening or solid component. No associated color flow. There is a simple cyst again noted 9:00 position 4 cm from nipple measuring 2.0 x 2.0 x 0.8 cm compared with prior measurements 1.6 x 1.5 x 1.0 cm. No internal septation or solid component. Results are discussed with the patient and her at time of visit. US/US breast LT limited IMPRESSION: Mildly complicated periareolar cysts without significant change. ASSESSMENT: BI-RADS 3: Probably Benign RECOMMENDATION: Targeted ultrasound left breast at time of annual bilateral mammography, due in 6 months. This patient's information was entered into a reminder system with a target due date for their next mammogram.
== END 2020-12-30 12:38 | disposition home or self-care (01) ==
LOC: HO.MAMMO 12:37
PROVIDERS: Visit Provider Internal Medicine
DX: N60.02 Solitary cyst of left breast (principal)
CPT/HCPCS: 76642

== ENCOUNTER → 2021-02-04 07:39 | Outpatient (REF) | payer OTHER, SELFPAY ==
--- NOTE | ~2021-02-04 | NM_ITS ---
EXAMINATION: BILIARY TRACT IMAGING STUDY WITH CCK CLINICAL INFORMATION: Right upper quadrant pain.. COMPARISON: No previous biliary scan is available for comparison. Abdominal ultrasound dated 12/05/2020 is available for comparison.. TECHNIQUE: Serial gamma scintillation camera images were obtained over the abdomen for a total observation period of 90 minutes following the intravenous administration of 5 mCi Tc-99m Mebrofenin. FINDINGS: There is good concentration of activity in the liver by 5 minutes post injection. Biliary activity is visualized by 8 minutes. The gallbladder is well visualized by 35 minutes. Small bowel is well visualized by 15 minutes. At 60 minutes post radiopharmaceutical injection, a 30-minute infusion of 1.4 micrograms Sincalide was then begun and an additional 30 minutes of images were obtained. There is good emptying of the gallbladder. By the end of the study there is good clearance of activity from the liver and visualization of diffuse small bowel activity. The calculated gallbladder ejection fraction is 63% (normal gallbladder ejection fraction is greater than 35%). NM/NM hepatobiliary w pharm IMPRESSION: Visualization of the gallbladder is evidence of a patent cystic duct and strong evidence against the diagnosis of acute cholecystitis. The common bile duct is patent. Gallbladder emptying and ejection fraction are normal. Liver function appears normal.
== END ==
LOC: HO.NUCMED 07:39
PROVIDERS: PCP Internal Medicine; Visit Provider Internal Medicine
DX: R10.11 Right upper quadrant pain (principal)
CPT/HCPCS: 78227; A9537; J2805

== ENCOUNTER 2021-02-27 09:33 | Outpatient (REF) | payer OTHER, SELFPAY ==
[2021-02-27 13:00] LABS: Thyroid Stimulating Hormone 0.67 uIU/mL (0.32-4.0)
[2021-02-28 08:22] LABS: Follicle Stimulating Hormone 3.4 mIU/mL
[2021-03-08 16:31] LABS: HPV 16 RNA NOT DETECTED (NOT DETECTED); HPV mRNA E6/E7 rflx Detected (Not Detected)
== END 2021-02-27 09:34 | disposition home or self-care (01) ==
LOC: HO.LAB 09:33
PROVIDERS: PCP Internal Medicine; Visit Provider Advanced Practice Midwife
DX: Z01.419 Encounter for gynecological examination (general) (routine) without abnormal findings (principal); R23.2 Flushing; R10.2 Pelvic and perineal pain; N94.10 Unspecified dyspareunia; E28.2 Polycystic ovarian syndrome; N64.4 Mastodynia; R63.5 Abnormal weight gain; F17.210 Nicotine dependence, cigarettes, uncomplicated; Z68.25 Body mass index [BMI] 25.0-25.9, adult; Z88.4 Allergy status to anesthetic agent; Z91.030 Bee allergy status; Z88.5 Allergy status to narcotic agent; Z88.0 Allergy status to penicillin; Z91.013 Allergy to seafood; Z88.2 Allergy status to sulfonamides
CPT/HCPCS: 36415; 83001; 84443; 87624; 87625; 88142

== ENCOUNTER 2021-04-11 13:49 | Outpatient (REF) | payer OTHER, SELFPAY ==
--- NOTE | ~2021-04-11 | US_ITS ---
EXAMINATION: PELVIC ULTRASOUND CLINICAL INFORMATION: Pelvic and right lower quadrant pain. History of ovarian cyst. COMPARISON: Previous pelvic ultrasound November 2019 TECHNIQUE: Transabdominal and transvaginal pelvic ultrasound was performed. Transvaginal exam was performed for better visualization of the uterus and ovaries. FINDINGS: The uterus is anteverted and measures 7.3 x 3.4 x 4.3 cm in dimension. No focal uterine lesion is seen. Ventral thickness is upper normal in size measuring 1.4 cm. There are nabothian cysts in the cervix. The ovaries are normal-appearing. The right ovary measures 2.6 x 1.7 x 2.2 cm. The left ovary measures 2.4 x 1.4 x 2.1 cm. The previously identified 3.5 x 2.5 x 3.5 cm simple left ovarian cyst is no longer seen.There is no fluid in the pelvis. US/US pelvic and transvaginal IMPRESSION: Normal pelvic ultrasound. The previously identified 3.5 x 2.5 x 3.5 cm simple left ovarian cyst
== END 2021-04-11 13:50 | disposition home or self-care (01) ==
LOC: HO.HMGCX 13:49
PROVIDERS: PCP Internal Medicine; Visit Provider Internal Medicine
DX: R10.2 Pelvic and perineal pain (principal); N83.209 Unspecified ovarian cyst, unspecified side
CPT/HCPCS: 76830; 76856

== ENCOUNTER → 2021-04-14 10:46 | Outpatient (BNVA) | payer OTHER, SELFPAY | PROVIDERS: PCP Internal Medicine; Visit Provider Advanced Practice Midwife ==

== ENCOUNTER 2021-07-01 12:43 | Outpatient (REF) | payer OTHER, SELFPAY ==
--- NOTE | ~2021-07-01 | MM_ITS ---
EXAMINATION: MM DIAGNOSTIC DIGITAL BREAST TOMOSYNTHESIS, BILATERAL US DIAGNOSTIC ULTRASOUND BREAST, BILATERAL CLINICAL INFORMATION: 41-year-old due for yearly. Also follow-up probable benign complicated cyst subareolar left breast. Patient notes tenderness on right. Family history breast cancer, mother, diagnosed since prior imaging. The lifetime risk of breast cancer based on the Tyrer-Cuzick Model is 22%. COMPARISON: Mammography: 07/23/2020, targeted left breast ultrasound 07/03/2020, 07/23/2020, 12/30/2020 TECHNIQUE: Digital breast tomosynthesis is performed in both the craniocaudal and mediolateral oblique views along with computer-aided detection (CAD). Synthesized 2D images are generated from the tomosynthesis. Additional exaggerated right CC view is provided. Ultrasound left breast is targeted to the subareolar breast and medial aspect lower inner quadrant. Ultrasound right breast is targeted to the posterior outer quadrant. Grayscale imaging and color Doppler are performed without and with harmonics. FINDINGS: The breasts are heterogeneously dense, which may obscure small masses (ACR BI-RADS breast composition Category c). There is fibrocystic parenchymal pattern with smooth rounded contours. No architectural abnormality or abnormal calcifications. The axilla and skin contours are unremarkable. Nodularity subareolar left breast appears stable. The cyst lower inner left breast appears mildly increased. There is a new oval circumscribed mass 1.5 cm posterior outer right breast. Ultrasound left breast demonstrates incidental cyst 6:00 subareolar position measuring approximately 0.8 x 0.5 cm. There is no associated solid component or color flow. The dominant cyst 9:00 left breast is mildly increased in size with current measurements are 2.7 x 1.1 x 2.0 cm. Prior measurements are 2.0 x 0.8 x 2.0 cm. Ultrasound right breast demonstrates a simple cyst 8:00 position 7 cm from nipple measuring 1.6 x 0.9 cm. There is no solid mass or architectural abnormality. Results are discussed with the patient at time of visit. Options for genetic testing and additional adjunct screening with breast MRI was also included in the discussion. MM/MM tomosynthesis diagnostic BI IMPRESSION: 1. Fibrocystic parenchymal pattern. No mammographic evidence of malignancy. 2. Benign bilateral cysts on ultrasound. ASSESSMENT: BI-RADS 2: Benign RECOMMENDATION: 1. Routine annual mammography screening. 2. The lifetime risk of breast cancer based on the Tyrer-Cuzick Model is 22%. Additional annual adjunct screening with breast MRI may be of benefit in women with a risk score of 20% or greater. This patient's information was entered into a reminder system with a target due date for their next mammogram.
== END 2021-07-01 12:44 | disposition home or self-care (01) ==
LOC: HO.MAMMO 12:43
PROVIDERS: Visit Provider Internal Medicine
DX: N60.02 Solitary cyst of left breast (principal)
CPT/HCPCS: 76642; 77062; 77066

== ENCOUNTER → 2021-07-10 08:21 | Outpatient (BNVA) | payer OTHER, SELFPAY | PROVIDERS: PCP Internal Medicine; Referring Provider Internal Medicine; Visit Provider Surgery | DX: Z80.3 Family history of malignant neoplasm of breast (principal) | CPT/HCPCS: 99202 ==

== ENCOUNTER 2021-08-07 10:27 | Emergency (ER) | payer OTHER, MEDICAID, SELFPAY ==
--- NOTE | ~2021-08-07 | XR_ITS ---
EXAMINATION: XR CHEST CLINICAL INFORMATION: Chest pain COMPARISON: None TECHNIQUE: PA view of the chest was obtained. FINDINGS: No significant abnormality is noted involving the heart, lungs, mediastinum, bony thorax or soft tissues. Status post cervical spine surgery. XR/XR chest 1V IMPRESSION: No acute disease.
[2021-08-07 10:40] VITALS: BP 125/75; PULSE 76; RESP 18; TEMP 36.1; O2SAT 98; BMI 26.5
--- NOTE | 2021-08-07 11:03 | ECG_ITS ---
Test Reason : chest pain Blood Pressure : / mmHG Vent. Rate : 067 BPM Atrial Rate : 067 BPM P-R Int : 130 ms QRS Dur : 078 ms QT Int : 390 ms P-R-T Axes : 062 081 038 degrees QTc Int : 412 ms Normal sinus rhythm Nonspecific ST abnormality Inferior leads Abnormal ECG No previous ECGs available Referred By: Generic ED Physician Electronically Signed By:SHAN SEGURA MD
[2021-08-07 14:11] VITALS: BP 105/67; PULSE 62; RESP 16; O2SAT 99
--- NOTE | 2021-08-07 14:12 | ED_ITS ---
HPI - Abdominal Pain General Chief Complaint: Abdominal Pain Stated Complaint: chest & abd pain Time Seen by Provider: 08/07/21 13:49 Source: patient Mode of arrival: ambulatory Limitations: no limitations History of Present Illness HPI narrative: 41-year-old female who presents emergency department for evaluation of abdominal pain and dizziness. The patient states that she developed abdominal pain last night. He came on suddenly. She states that her abdomen felt swollen. She describes the pain as a gas bubble like pain which was mild to moderate intensity. She states that she had a bowel movement prior to coming into the emergency department which seemed to relieve her pain. She also states that this morning she was taking hot shower for approximately 5 minutes. She states that she yawned and then felt dizzy as if she was going to pass out. Her symptoms resolved and she did not lose consciousness. The patient went into work and complained of abdominal pain. 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 Her colleagues were concerned about her symptoms especially since she has a history of his seizure disorder advised her to leave work and go to the emergency department for evaluation. At the time my evaluation, the patient has no abdominal pain and no dizziness and states she feels at her baseline. Related Data Home Medications Medication Instructions Recorded Confirmed acetaminophen 650 mg 650 - 1,300 mg PO Q8H PRN 02/27/21 07/10/21 tablet,extended release epinephrine 0.3 mg/0.3 mL IM 02/27/21 07/10/21 injection, auto-injector ibuprofen 600 mg tablet 600 mg PO TID PRN 02/27/21 07/10/21 Allergies Allergy/AdvReac Type Severity Reaction Status Date / Time bee pollen Allergy Severe Anaphylaxis Verified 07/10/21 08:35 oxycodone Allergy Severe Hives Verified 07/10/21 08:35 shellfish derived Allergy Severe Anaphylaxis Verified 07/10/21 08:35 midazolam [From VERSED] Allergy Unknown UNKNOWN Verified 07/10/21 08:35 Opioids - Morphine Analogues Allergy Unknown HIVES Verified 07/10/21 08:35 [OPIOIDS - MORPHINE ANALOGUES] Sulfa (Sulfonamide Allergy Unknown Hives Verified 07/10/21 08:35 Antibiotics) sulfamethoxazole Allergy Unknown UNKNOWN Verified 07/10/21 08:35 [From BACTRIM] trimethoprim [From BACTRIM] Allergy Unknown UNKNOWN Verified 07/10/21 08:35 aspirin [ASA] Allergy Unknown Verified 07/10/21 08:35 Penicillins AdvReac Gastrointestinal Verified 07/10/21 08:35 Upset Review of Systems Review of Systems Yes all other systems are reviewed and are negative Physical Exam Vital Signs: Vital Signs: Last Vital Signs Temp 97 F 08/07/21 10:40 Pulse 76 08/07/21 10:40 Resp 18 08/07/21 10:40 BP 125/75 08/07/21 10:40 Pulse Ox 98 08/07/21 10:40 Body Mass Index 26.5 Const: General: cooperative and no acute distress Orientation/consciousness: oriented to person and oriented to place Limitations: no limitations HENMT: Head: Yes normal to inspection, Yes normocephalic and Yes atraumatic Ears: external ears normal General nose exam: Normal external nose present Face and sinus: Yes normal facial exam Mouth: Normal oral and palatal mucosa present Throat: Yes posterior oropharynx normal Eyes: General: appearance normal, both eyes and all related structures Pupils: Equal, round and reactive pupils present Neck: Neck: Yes normal visual inspection, Yes no lymphadenopathy, Yes trachea midline and Yes supple Chest: Chest palpation & inspection: normal inspection of the chest and normal palpation of entire chest wall Resp: Effort & Inspection: normal respiratory effort and able to speak in complete sentences Auscultation: clear to auscultation bilaterally Cardio: Rate: regular rate Rhythm: regular rhythm Heart sounds: S1 normal heart sound present, S2 normal heart sound present and no murmurs GI: Inspection: Yes normal to inspection Palpation (GI): Soft to palpation, nontender and no guarding Auscultation: normal bowel sounds : General: Yes no CVA tenderness Back/Spine/Pelvis: Back: no CVA tenderness Skin: General skin exam: no rashes or lesions noted Neuro: General: oriented to person and oriented to place Cranial nerves: Yes CN's II-XII intact bilaterally and Yes Equal, round and reactive pupils present Cognition (Neuro): normal cognition Motor exam (neuro): 5/5 motor strength present throughout Extrem: General: Yes normal to inspection Psych: Appearance: grossly normal Speech and movement: Normal speech and movement present Affect: normal affect Attitude: cooperative Thought process: Normal thought process present Thought content: Normal thought content present Course Course Course Narrative: 41-year-old female who presents emergency department for evaluation abdominal pain and dizziness. The abdominal pain started last night and resolved after she had a bowel movement prior to coming to the emergency department. The patient had dizziness while she was in the shower after she yawned this was a brief episode that resolved. Patient's vital signs were normal. Patient's physical examination was unremarkable. Chest x-ray was unremarkable. Twelve EKG revealed a sinus rhythm with a rate of 67 with no PACs, PVCs or ST segment elevation or depression. The patient was discharged home with printed and verbal instructions. She was advised return emergency department if her symptoms get worse or she develops any new symptoms are concerning to her pain MDM - Abdominal Pain ECG Data Attestation: I personally reviewed and interpreted this ECG as follows: Interpretation: 1055: Normal sinus rhythm rate of 67, normal UT interval, QRS interval and QTC duration, no ST segment elevation, no ST segment depression, inverted T-waves V1 and V2 which is nonspecific. This is a normal EKG. Discharge Plan Discharge Clinical Impression: Dizziness Abdominal pain Qualifiers: Abdominal location: generalized Qualified Code(s): R10.84 - Generalized abdominal pain Patient Disposition: Home, Self-Care Instructions: Abdominal Pain (ED) Additional Instructions: Your vital signs were normal. Your abdominal exam and neurologic exam were normal as well. Your 12 EKG was unremarkable. Your chest x-ray was normal. Follow-up with your doctor in 2 days. Please return to the emergency department if your symptoms get worse or if you develop any symptoms that are concerning to you. Please see work note. 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 Past surgical history: C4 through C5 spinal fusion. 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 She denies alcohol use. She does smoke marijuana daily and she states that she does this to help prevent seizures. She states that seizure medications gave her bad side effects and she has had no seizures since she has been smoking marijuana for the past year. Medical History Abnormal Pap smear of cervix Asthma Cervical cancer Cyst of right breast Epilepsy Family history of breast cancer Hypotension Miscarriage Other cyst of bone, right shoulder Ovarian cyst PCOS (polycystic ovarian syndrome) SVT (supraventricular tachycardia) Surgical History History of loop electrical excision procedure (LEEP) Hx of spinal surgery [place] teeth extracted Family History Family History Mother Breast cancer, Onset Age: 66 Social History Social History Alcohol intake: never Patient Tobacco Use Status: Current everyday Tobacco user Tobacco use type: Cigarette Cigarette Packs Per Day: 10 Substance Use Type: Marijuana Advance Directives: No Advance Directives Information Provided: Yes Patient : No Gender identity: Female
--- NOTE | 2021-08-07 14:33 | PC.NURSE ---
1st encounter with patient for dc purposes. PT AWAKE, ALERT AND ORIENTED X 3. PT DRESSED, SITTING ON STRETCHER. SKIN WARM AND DRY. RESP UNLABORED. DENIES N/V. NO C/O PAIN PRESENTLY. NEUROS INTACT. EVALUATED BY DR EASLEY. PLAN IS FOR DC HOME. PT AWARE AND AGREEABLE TO ED CARE PLAN.
== END 2021-08-07 14:35 | disposition home or self-care (01) ==
PROVIDERS: Emergency Provider Emergency Medicine Emergency Medical Services; PCP Internal Medicine
DX: R42 Dizziness and giddiness (principal); R10.84 Generalized abdominal pain; J45.909 Unspecified asthma, uncomplicated; G40.909 Epilepsy, unspecified, not intractable, without status epilepticus
CPT/HCPCS: 71045; 93005; 99283; 99284

== ENCOUNTER → 2021-08-20 08:48 | Outpatient (BNVA) | payer OTHER, SELFPAY | PROVIDERS: PCP Internal Medicine; Referring Provider Internal Medicine; Visit Provider Surgery | DX: Z80.3 Family history of malignant neoplasm of breast (principal) | CPT/HCPCS: 99212 ==

== ENCOUNTER 2021-08-27 17:34 | Outpatient (REF) | payer OTHER, SELFPAY ==
--- NOTE | ~2021-08-27 | XR_ITS ---
EXAMINATION: XR LUMBOSACRAL SPINE CLINICAL INFORMATION: Severe osteoarthritis COMPARISON: Lumbar spine October 2020 TECHNIQUE: Three views of the lumbosacral spine. FINDINGS: Stable slight compression of the anterior superior endplate of L3 unchanged since prior study of October 2020. No acute fracture or bone destruction. There are small Schmorl's nodes at the superior endplates of the L2, L3 and L4 vertebrae that are unchanged since prior study. Minimal anterior spur at the endplates at L3-L4. The facet joints are normal. No spondylolysis or spondylolisthesis. Normal sacroiliac joints. XR/XR lumbar spine 2-3V IMPRESSION: Stable chronic changes of lumbar spine. No interval change since October 2020.
== END 2021-08-27 17:35 | disposition home or self-care (01) ==
LOC: HO.XRAY 17:34
PROVIDERS: PCP Internal Medicine; Visit Provider Internal Medicine
DX: M47.816 Spondylosis without myelopathy or radiculopathy, lumbar region (principal)
CPT/HCPCS: 72100

== ENCOUNTER 2021-09-27 15:53 | Emergency (ER) | payer OTHER, SELFPAY | END 2021-09-27 18:21 | disposition left against medical advice (07) | PROVIDERS: Emergency Provider Emergency Medicine; PCP Internal Medicine | DX: U07.1 COVID-19 (principal) ==

== ENCOUNTER 2022-08-06 07:28 | Outpatient (REF) | payer OTHER, SELFPAY ==
--- NOTE | ~2022-08-06 | MM_ITS ---
EXAMINATION: MM SCREENING DIGITAL BREAST TOMOSYNTHESIS, BILATERAL CLINICAL INFORMATION: Screening. Asymptomatic. COMPARISON: Mammography: 1and studies dating back to 07/03/2020 TECHNIQUE: Digital breast tomosynthesis is performed in both the craniocaudal and mediolateral oblique views along with computer-aided detection (CAD). Synthesized 2D images are generated from the tomosynthesis. FINDINGS: The breasts are extremely dense, which lowers the sensitivity of mammography (ACR BI-RADS breast composition Category d). There is waxing and waning of multiple bilateral well-circumscribed densities with previous studies demonstrating numerous bilateral breast cysts. No region of architectural distortion identified. No suspicious grouping of microcalcifications is seen. MM/MM tomosynthesis screening BI IMPRESSION: Waxing and waning of bilateral circumscribed densities consistent with previously shown cysts. ASSESSMENT: BI-RADS 2: Benign RECOMMENDATION: Routine annual mammography screening. This patient's information was entered into a reminder system with a target due date for their next mammogram.
== END 2022-08-06 07:29 | disposition home or self-care (01) ==
LOC: HO.MAMMO 07:28
PROVIDERS: PCP Internal Medicine; Visit Provider Internal Medicine
DX: Z12.31 Encounter for screening mammogram for malignant neoplasm of breast (principal)
CPT/HCPCS: 77063; 77067

== ENCOUNTER 2023-05-14 11:00 | Emergency (ER) | payer OTHER, MEDICAID, SELFPAY ==
--- NOTE | 2023-05-14 11:07 | ECG_ITS ---
Test Reason : irregular heartbeat Blood Pressure : / mmHG Vent. Rate : 058 BPM Atrial Rate : 058 BPM P-R Int : 154 ms QRS Dur : 080 ms QT Int : 404 ms P-R-T Axes : 074 082 045 degrees QTc Int : 396 ms Sinus bradycardia Otherwise normal ECG When compared with ECG of 07-AUG-2021 10:55, Heart rate has decreased Referred By: Generic ED Physician Electronically Signed By:JARED PRICE
[2023-05-14 11:09] VITALS: BP 124/80; PULSE 63; RESP 19; TEMP 36.6; O2SAT 98; BMI 27.6
[2023-05-14 11:42] LABS: MANUAL DIFF FLAG NO
[2023-05-14 11:46] LABS: Appearance Urine Cloudy; Color Urine Yellow; Glucose Urine UA Negative (Negative); Leukocyte Esterase Urine Negative (Negative); Nitrite Urine Negative (Negative); PH 6.5 (5.0-9.0); Urine Blood Negative (Negative); Urine Ketones Negative (Negative); Urine Protein Negative (Neg-Trace)
[2023-05-14 11:47] LABS: Basophils Percent Auto 0.5 % (0-2); Eosinophils Absolute Auto 0.1 X10*3/uL (0.0-0.4); Eosinophils Percent Auto 0.9 % (0-4); Hemoglobin 15.6 g/dl (12.0-16.0); Imm Gran Abs Auto 0.02 X10*3/uL (0.00-0.03); Imm Gran Pct Auto 0.3 % (0.0-0.4); Lymphocytes Absolute Auto 1.8 X10*3/uL (1.2-4.9); Lymphocytes Percent Auto 28.2 % (20-40); Mean Corpuscular HGB Conc 34.7 g/dl (31.0-35.0); Mean Corpuscular Hemoglobin 30.7 pg (27.0-33.0); Mean Corpuscular Volume 88.6 fL (80.0-98.0); Mean Platelet Volume 8.4 fL (9.4-12.3); Monocytes Absolute Auto 0.4 X10*3/uL (0.1-1.2); Monocytes Percent Auto 6.9 % (2-11); Neutrophils Absolute Auto 4.1 x10*3/uL (2.0-8.3); Neutrophils Percent Auto 63.2 % (45-73); Platelet Count 241 X10*3/uL (160-400); Red Blood Count 5.08 X10*6/uL (4.20-5.50); White Blood Count 6.4 X10*3/uL (4.8-10.8)
[2023-05-14 12:06] LABS: B Type Natriuretic Peptide 10 pg/mL (<100)
[2023-05-14 12:07] LABS: Alanine Aminotransferase 12 U/L (0-31); Albumin Level 4.3 g/dL (3.5-5.0); Alkaline Phosphatase 57 U/L (39-117); Anion Gap 12 (12-20); Aspartate Amino Transferase 15 U/L (5-31); Bilirubin Total 0.6 mg/dL (0.0-1.0); Blood Urea Nitrogen 10 mg/dL (9-16); Calcium 9.3 mg/dL (8.4-10.2); Carbon Dioxide 27 mmol/L (22-29); Chloride 107 mmol/L (96-108); Creatinine Clr Calc Pharmacy 78.3; Estimated Glomerular Filt Rate > 60; Glucose Random 92 mg/dL (60-115); Magnesium 2.1 mg/dL (1.6-2.6); Sodium 142 mmol/L (135-145); Total Protein 7.5 g/dL (6.5-8.0)
[2023-05-14 12:09] LABS: Troponin-I High Sensitivity < 2.7 ng/L (<3.5-17.0)
[2023-05-14 12:22] LABS: HCG Quantitative < 2 mIU/mL
[2023-05-14 12:48] VITALS: BP 124/76; PULSE 64; RESP 19; O2SAT 98
--- NOTE | 2023-05-14 12:55 | ECG_ITS ---
Test Reason : irregular hr repeat Blood Pressure : / mmHG Vent. Rate : 051 BPM Atrial Rate : 051 BPM P-R Int : 148 ms QRS Dur : 078 ms QT Int : 418 ms P-R-T Axes : 063 075 032 degrees QTc Int : 385 ms Sinus bradycardia Otherwise normal ECG When compared with ECG of 14-MAY-2023 11:14, No significant change was found Referred By: Roxane Abdullahi Electronically Signed By:JARED PRICE
--- NOTE | 2023-05-14 13:32 | ED_ITS ---
HPI - General Adult General Chief complaint: General Medical Stated complaint: irregular heart beats Time Seen by Provider: 05/14/23 17:18 Source: patient and old records reviewed Mode of arrival: ambulatory Limitations: no limitations History of Present Illness HPI narrative: Patient is a 43 year old assigned female at with a history of asthma presenting to the emergency department today concerned that she is going in and out of SVT. 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 Patient states that she is also having episodes of hypotension where her blood pressure bottoms out and she gets dizzy. Patient denies any abdominal pain, nausea, vomiting, fever, chills, blurry vision, double vision, loss of vision, chest pain, difficulty breathing, shortness of breath, back pain, night sweats, pain with urination, increased urinary frequency, increased urinary urgency, blood in her urine or stool, syncope or a near syncopal episode, recent trauma or falls, bowel incontinence, bladder incontinence, bowel retention, bladder retention, or any other complaints at this time. Onset (ago): month(s) Relieving factors: none Exacerbating factors: none Associated symptoms: denies other symptoms Treatments prior to arrival: none Related Data Home Medications Medication Instructions Recorded Confirmed acetaminophen 650 mg 650 - 1,300 mg PO Q8H PRN 02/27/21 08/20/21 tablet,extended release epinephrine 0.3 mg/0.3 mL IM 02/27/21 08/20/21 injection, auto-injector ibuprofen 600 mg tablet 600 mg PO TID PRN pain 02/27/21 08/20/21 Allergies Allergy/AdvReac Type Severity Reaction Status Date / Time bee pollen Allergy Severe Anaphylaxis Verified 05/14/23 11:09 oxycodone Allergy Severe Hives Verified 05/14/23 11:09 shellfish derived Allergy Severe Anaphylaxis Verified 05/14/23 11:09 midazolam [From VERSED] Allergy Unknown UNKNOWN Verified 05/14/23 11:09 Opioids - Morphine Analogues Allergy Unknown HIVES Verified 05/14/23 11:09 [OPIOIDS - MORPHINE ANALOGUES] Sulfa (Sulfonamide Allergy Unknown Hives Verified 05/14/23 11:09 Antibiotics) sulfamethoxazole Allergy Unknown UNKNOWN Verified 05/14/23 11:09 [From BACTRIM] trimethoprim [From BACTRIM] Allergy Unknown UNKNOWN Verified 05/14/23 11:09 aspirin [ASA] Allergy Unknown Verified 05/14/23 11:09 Penicillins AdvReac Gastrointestinal Verified 05/14/23 11:09 Upset Review of Systems Constitutional: Constitutional: Reports no additional constitutional complaints, Denies chills, Denies fever(s) and Denies night sweats Eyes: Eyes: Reports no additional eye complaints, Denies blurry vision, Denies change in vision, Denies diplopia, Denies eye discharge, Denies loss of vision and Denies eye pain ENT: Reports dizziness (intermittent) Cardiovascular: Cardiovascular: Reports no additional cardiovascular complaints, Denies chest pain, Denies lightheadedness, Denies Loss of Consciousness, Reports palpitations (intermittently) and Denies dyspnea Respiratory: Respiratory: Reports no additional respiratory complaints and Denies dyspnea Gastrointestinal: Gastrointestinal: Reports no additional gastrointestinal complaints, Denies abdominal pain, Denies melena, Denies hematochezia, Denies change in bowel habits and Denies change in stool character Genitourinary: Genitourinary: Denies hematuria, Denies urinary frequency, Denies dysuria, Denies urinary incontinence, Denies urinary hesitancy and Denies urinary urgency Musculoskeletal: Musculoskeletal: Reports no additional musculoskeletal complaints, Denies numbness and Denies tingling Neurologic: Reports dizziness (intermittent), Denies loss of vision, Denies numbness and Denies tingling Psychiatric: Psychiatric: Reports no additional psychiatric complaints Endocrine: Endocrine: Reports no additional endocrine complaints and Reports palpitations (intermittently) Hematologic/Lymphatic: Hematologic/Lymphatic: Reports no additional hematologic/lymphatic complaints Allergic/Immunologic: Allergic/Immunologic: Reports no additional allergic/immunologic complaints [facility] Past Medical History Attestation statement: The following information was validated with the patient. Source: old records reviewed and nursing notes reviewed Medical History Abnormal Pap smear of cervix Asthma Breast pain Cervical cancer Cyst of right breast Encounter for annual routine gynecological examination Epilepsy Family history of breast cancer Hot flashes Hypotension Miscarriage Other cyst of bone, right shoulder Ovarian cyst PCOS (polycystic ovarian syndrome) Pelvic pain in female Smoking SVT (supraventricular tachycardia) Surgical History History of loop electrical excision procedure (LEEP) Hx of spinal surgery [place] teeth extracted Family History Family History Mother Breast cancer, Onset Age: 66 Social History Social History Alcohol intake: never Patient Tobacco Use Status: Current everyday Tobacco user Tobacco use type: Cigarette Cigarette Packs Per Day: 10 Substance Use Type: Marijuana Advance Directives: No Advance Directives Information Provided: No Gender identity: Female Physical Exam ED Vital Signs: Vital Signs - 24 hr 05/14/23 11:09 05/14/23 12:48 Temperature 98 F Pulse Rate 63 64 Respiratory Rate 19 19 Blood Pressure 124/80 124/76 Pulse Oximetry 98 98 Oxygen Delivery Method Room Air Room Air BMI result Body Mass Index 27.6 Course Course Course Narrative: RME performed by Roxane Abdullahi PA-C. Patient is a 43 year old assigned female at presenting to the emergency department with intermittent dizziness/lightheadedness and concerns for going in and out of SVT. Labs ordered. Patient placed back in the waiting room pending room availability and results. Medical Decision Making Medical Decision Making [facility] Narrative: Patient is a 43 year old assigned female at with a history of asthma presenting to the emergency department today with concern for intermittent SVT and hypotension. Patient's limited physical exam performed in triage was unremarkable. Patient's blood work was unremarkable. Patient's urine showed no acute process. Patient's EKG was unremarkable. Patient eloped from the department before myself or any of the other emergency department providers could explain the patient's physical exam findings, test results, need or lack there of for further testing including imaging, treatment options or treatment plans. Differential Diagnosis Differential Diagnoses: The differential diagnosis associated with the presentation includes Arrythmia Irregular heartbeat Electrolyte imbalance Anxiety Admission/Observation Consideration of admission/observation: Escalation of care including admission/observation considered Patient would have been admitted to the hospital had her work up had any findings where hospital admission was appropriate, her clinical presentation warranted hospital admission, and she hadn't eloped from the department. Lab Data [facility] Lab Attestation statement: I reviewed the patient's lab results. My interpretation of these studies and their corresponding values is that they are grossly normal. 05/14/23 11:32 05/14/23 11:32 Labs: Lab Results 05/14/23 05/14/23 05/14/23 Range/Units 11:32 11:32 11:32 WBC 6.4 (4.8-10.8) X10*3/uL RBC 5.08 (4.20-5.50) X10*6/uL Hgb 15.6 (12.0-16.0) g/dl Hct 45.0 (37.0-47.0) % MCV 88.6 (80.0-98.0) fL MCH 30.7 (27.0-33.0) pg MCHC 34.7 (31.0-35.0) g/dl RDW 12.0 (11.0-16.0) % Plt Count 241 (160-400) X10*3/uL MPV 8.4 L (9.4-12.3) fL Immature Gran % (Auto) 0.3 (0.0-0.4) % Neut % (Auto) 63.2 (45-73) % Lymph % (Auto) 28.2 (20-40) % [place] % (Auto) 6.9 (2-11) % Eos % (Auto) 0.9 (0-4) % Baso % (Auto) 0.5 (0-2) % Lymph # (Auto) 1.8 (1.2-4.9) X10*3/uL [place] # (Auto) 0.4 (0.1-1.2) X10*3/uL Eos # (Auto) 0.1 (0.0-0.4) X10*3/uL Baso # (Auto) 0.0 (0.0-0.2) X10*3/uL Abs Immat Gran (auto) 0.02 (0.00-0.03) X10*3/uL Absolute Neuts (auto) 4.1 (2.0-8.3) x10*3/uL Absolute Nucleated RBC 0.000 (0.0-0.012) X10*3/uL Nucleated RBC % (auto) 0.0 (0.0-0.2) /100WBC Sodium 142 (135-145) mmol/L Potassium 4.0 (3.3-5.1) mmol/L Chloride 107 (96-108) mmol/L Carbon Dioxide 27 (22-29) mmol/L Anion Gap 12 (12-20) BUN 10 (9-16) mg/dL Creatinine 0.84 (0.5-1.4) mg/dL Estim Creat Clear Calc 78.3 Estimated GFR > 60 Random Glucose 92 (60-115) mg/dL Calcium 9.3 (8.4-10.2) mg/dL Magnesium 2.1 (1.6-2.6) mg/dL Total Bilirubin 0.6 (0.0-1.0) mg/dL AST 15 (5-31) U/L ALT 12 (0-31) U/L Alkaline Phosphatase 57 (39-117) U/L Troponin I High Sens < 2.7 (<3.5-17.0) ng/L B-Natriuretic Peptide (<100) pg/mL Total Protein 7.5 (6.5-8.0) g/dL Albumin 4.3 (3.5-5.0) g/dL TSH 1.20 (0.32-4.0) uIU/mL Beta HCG, Quant < 2 mIU/mL Urine Color Urine Appearance Urine pH (5.0-9.0) Ur Specific [place] (1.005-1.025) Urine Protein (Neg-Trace) mg/dL Urine Glucose (UA) (Negative) mg/dL Urine Ketones (Negative) mg/dL Urine Blood (Negative) Urine Nitrite (Negative) Ur Leukocyte Esterase (Negative) 05/14/23 05/14/23 Range/Units 11:32 11:32 WBC (4.8-10.8) X10*3/uL RBC (4.20-5.50) X10*6/uL Hgb (12.0-16.0) g/dl Hct (37.0-47.0) % MCV (80.0-98.0) fL MCH (27.0-33.0) pg MCHC (31.0-35.0) g/dl RDW (11.0-16.0) % Plt Count (160-400) X10*3/uL MPV (9.4-12.3) fL Immature Gran % (Auto) (0.0-0.4) % Neut % (Auto) (45-73) % Lymph % (Auto) (20-40) % [place] % (Auto) (2-11) % Eos % (Auto) (0-4) % Baso % (Auto) (0-2) % Lymph # (Auto) (1.2-4.9) X10*3/uL [place] # (Auto) (0.1-1.2) X10*3/uL Eos # (Auto) (0.0-0.4) X10*3/uL Baso # (Auto) (0.0-0.2) X10*3/uL Abs Immat Gran (auto) (0.00-0.03) X10*3/uL Absolute Neuts (auto) (2.0-8.3) x10*3/uL Absolute Nucleated RBC (0.0-0.012) X10*3/uL Nucleated RBC % (auto) (0.0-0.2) /100WBC Sodium (135-145) mmol/L Potassium (3.3-5.1) mmol/L Chloride (96-108) mmol/L Carbon Dioxide (22-29) mmol/L Anion Gap (12-20) BUN (9-16) mg/dL Creatinine (0.5-1.4) mg/dL Estim Creat Clear Calc Estimated GFR Random Glucose (60-115) mg/dL Calcium (8.4-10.2) mg/dL Magnesium (1.6-2.6) mg/dL Total Bilirubin (0.0-1.0) mg/dL AST (5-31) U/L ALT (0-31) U/L Alkaline Phosphatase (39-117) U/L Troponin I High Sens (<3.5-17.0) ng/L B-Natriuretic Peptide 10 (<100) pg/mL Total Protein (6.5-8.0) g/dL Albumin (3.5-5.0) g/dL TSH (0.32-4.0) uIU/mL Beta HCG, Quant mIU/mL Urine Color Yellow Urine Appearance Cloudy Urine pH 6.5 (5.0-9.0) Ur Specific [place] 1.020 (1.005-1.025) Urine Protein Negative (Neg-Trace) mg/dL Urine Glucose (UA) Negative (Negative) mg/dL Urine Ketones Negative (Negative) mg/dL Urine Blood Negative (Negative) Urine Nitrite Negative (Negative) Ur Leukocyte Esterase Negative (Negative) Independent Interpretation I performed an independent interpretation of an: EKG Interpretation: Vent. Rate: 058 BPM ? ? Atrial Rate: 058 BPM P-R Int: 154 ms? QRS Dur: 080 ms QT Int: 404 ms ? ? ? P-R-T Axes: 074 082 045 degrees QTc Int: 396 ms ? Sinus bradycardia Otherwise normal ECG When compared with ECG of 07-AUG-2021 10:55, Heart rate has decreased Electronically Signed By:LANE PRICE Dictated By: Lane Ball DO Signed By: Electronically signed by Lane Ball DO 05/14/23 1556 Vent. Rate: 051 BPM ? ? Atrial Rate: 051 BPM P-R Int: 148 ms? QRS Dur: 078 ms QT Int: 418 ms ? ? ? P-R-T Axes: 063 075 032 degrees QTc Int: 385 ms ? Sinus bradycardia Otherwise normal ECG When compared with ECG of 14-MAY-2023 11:14, No significant change was found ? Electronically Signed By:LANE PRICE Dictated By: Lane Ball DO Signed By: Electronically signed by Lane Ball DO 05/14/23 1556 Discharge Plan Discharge Clinical Impression: Paroxysmal tachycardia Patient Disposition: Elopement Prescriptions: No Action acetaminophen 650 mg tablet extended release 650 - 1,300 mg PO Q8H PRN ibuprofen 600 mg tablet 600 mg PO TID PRN (Reason: pain) epinephrine 0.3 mg/0.3 mL auto-injector IM Discharge Date/Time: 05/14/23 18:31
== END 2023-05-14 18:31 | disposition left against medical advice (07) ==
PROVIDERS: Physician Assistant Medical; Emergency Provider Emergency Medicine; PCP Internal Medicine
DX: I47.9 Paroxysmal tachycardia, unspecified (principal); F17.210 Nicotine dependence, cigarettes, uncomplicated; F12.90 Cannabis use, unspecified, uncomplicated; R10.2 Pelvic and perineal pain; C53.9 Malignant neoplasm of cervix uteri, unspecified; Z79.899 Other long term (current) drug therapy
CPT/HCPCS: 36415; 80053; 81003; 83735; 83880; 84443; 84484; 84702; 85025; 93005; 99283

== ENCOUNTER 2023-07-14 08:44 | Outpatient (REF) | payer OTHER, MEDICAID, SELFPAY ==
[2023-07-14 09:23] LABS: Appearance Urine Cloudy; Color Urine Yellow; Glucose Urine UA Negative (Negative); Leukocyte Esterase Urine Large (3+) (Negative); Nitrite Urine Positive (Negative); PH 6.5 (5.0-9.0); UMIC TRIGGER UACC YES; Urine Blood Trace (Negative); Urine Ketones Negative (Negative); Urine Protein Negative (Neg-Trace)
[2023-07-14 09:43] LABS: Bacteria Urine 4+ (None Seen); Hyaline Casts Urine >20 /LPF (0-2); RBC Urine >20 /HPF (0-2); UACC Culture Trigger YES; WBC Urine >50 /HPF (0-5)
== END 2023-07-14 08:45 | disposition home or self-care (01) ==
LOC: HO.LAB 08:44
PROVIDERS: PCP Internal Medicine; Visit Provider Internal Medicine
DX: R30.0 Dysuria (principal)
CPT/HCPCS: 81001; 87086; 87088; 87186

== ENCOUNTER 2023-08-12 07:52 | Outpatient (REF) | payer OTHER, SELFPAY ==
--- NOTE | ~2023-08-12 | MM_ITS ---
EXAMINATION: MM SCREENING DIGITAL BREAST TOMOSYNTHESIS, BILATERAL CLINICAL INFORMATION: Screening. Asymptomatic. COMPARISON: Mammography: 07/06/2022, 07/01/2021, 07/23/2020, targeted left breast ultrasound 07/03/2020, 07/23/2020, 12/30/2020 TECHNIQUE: Digital breast tomosynthesis is performed in both the craniocaudal and mediolateral oblique views along with computer-aided detection (CAD). Synthesized 2D images are generated from the tomosynthesis. FINDINGS: The breasts are heterogeneously dense, which may obscure small masses (ACR BI-RADS breast composition Category c). There are no suspicious masses, suspicious grouped calcifications, or areas of architectural distortion in either breast. There are bilateral circumscribed masses previously characterized as cysts. The parenchymal pattern is otherwise stable from prior exams. No axillary or skin abnormality. MM/MM tomosynthesis screening BI IMPRESSION: No mammographic evidence of malignancy. Stable benign findings. ASSESSMENT: BI-RADS BI-RADS 2 - Benign Findings RECOMMENDATION: Routine annual mammography screening. 1 year F/U This examination should not preclude the clinical evaluation of a suspicious palpable abnormality. This patient's information was entered into a reminder system with a target due date for their next mammogram.
== END 2023-08-12 07:53 | disposition home or self-care (01) ==
LOC: HO.MAMMO 07:52
PROVIDERS: PCP Internal Medicine; Visit Provider Internal Medicine
DX: Z12.31 Encounter for screening mammogram for malignant neoplasm of breast (principal)
CPT/HCPCS: 77063; 77067

== ENCOUNTER → 2023-08-12 08:15 | Outpatient (BNV) | payer OTHER, SELFPAY | PROVIDERS: PCP Internal Medicine; Visit Provider Radiology Diagnostic Radiology | DX: Z12.31 Encounter for screening mammogram for malignant neoplasm of breast (principal) | CPT/HCPCS: 77063; 77067 ==

== ENCOUNTER 2023-09-07 16:26 | Outpatient (REF) | payer OTHER, SELFPAY ==
--- NOTE | ~2023-09-07 | XR_ITS ---
EXAMINATION: XR CHEST CLINICAL INFORMATION: Abdominal pain COMPARISON: 08/07/2021 TECHNIQUE: 2 views of the chest were obtained. FINDINGS: The lungs are well-inflated. There is no gross pneumothorax. There is no pleural effusion. No focal consolidation to suggest pneumonia. XR/XR chest 2V IMPRESSION: No evidence of pneumonia.
[2023-09-07 16:40] LABS: MANUAL DIFF FLAG NO
[2023-09-07 17:04] LABS: Basophils Percent Auto 0.5 % (0-2); Eosinophils Absolute Auto 0.1 X10*3/uL (0.0-0.4); Eosinophils Percent Auto 0.8 % (0-4); Hematocrit 45.5 % (37.0-47.0); Hemoglobin 15.6 g/dl (12.0-16.0); Imm Gran Abs Auto 0.01 X10*3/uL (0.00-0.03); Imm Gran Pct Auto 0.2 % (0.0-0.4); Lymphocytes Absolute Auto 2.3 X10*3/uL (1.2-4.9); Lymphocytes Percent Auto 39.2 % (20-40); Mean Corpuscular HGB Conc 34.3 g/dl (31.0-35.0); Mean Corpuscular Hemoglobin 30.1 pg (27.0-33.0); Mean Corpuscular Volume 87.8 fL (80.0-98.0); Mean Platelet Volume 8.7 fL (9.4-12.3); Monocytes Absolute Auto 0.6 X10*3/uL (0.1-1.2); Monocytes Percent Auto 9.2 % (2-11); Neutrophils Percent Auto 50.1 % (45-73); Platelet Count 217 X10*3/uL (160-400); Red Blood Count 5.18 X10*6/uL (4.20-5.50); Red Cell Distribution Width 11.4 % (11.0-16.0)
[2023-09-07 17:11] LABS: Appearance Urine Clear; Color Urine Yellow; Glucose Urine UA Negative (Negative); Leukocyte Esterase Urine Negative (Negative); Nitrite Urine Negative (Negative); PH 5.5 (5.0-9.0); Specific Gravity - Urine >= 1.030 (1.005-1.025); Urine Blood Negative (Negative); Urine Ketones Negative (Negative); Urine Protein Trace mg/dL (Neg-Trace)
[2023-09-07 17:17] LABS: Bacteria Urine 1+ (None Seen); RBC Urine 0-2 /HPF (0-2); WBC Urine 0-5 /HPF (0-5)
[2023-09-07 17:43] LABS: Alanine Aminotransferase 12 U/L (0-31); Albumin Level 4.3 g/dL (3.5-5.0); Alkaline Phosphatase 68 U/L (39-117); Anion Gap 13 (12-20); Aspartate Amino Transferase 18 U/L (5-31); Bilirubin Total 0.3 mg/dL (0.0-1.0); Blood Urea Nitrogen 13 mg/dL (9-16); C Reactive Protein 1.25 mg/dL (< or = 0.50); Calcium 9.4 mg/dL (8.4-10.2); Carbon Dioxide 25 mmol/L (22-29); Chloride 107 mmol/L (96-108); Estimated Glomerular Filt Rate > 60; Glucose Random 120 mg/dL (60-115); Potassium 3.5 mmol/L (3.3-5.1); Sodium 141 mmol/L (135-145); Total Protein 7.6 g/dL (6.5-8.0)
[2023-09-07 17:47] LABS: Thyroid Stimulating Hormone 1.55 uIU/mL (0.32-4.0)
[2023-09-07 17:58] LABS: Vitamin B12 680 pg/mL (200-900)
[2023-09-07 18:00] LABS: Erythrocyte Sedimentation Rate 10 MM/HR (0-20)
== END 2023-09-07 16:27 | disposition home or self-care (01) ==
LOC: HO.XRAY 16:26
PROVIDERS: PCP Internal Medicine; Visit Provider Internal Medicine
DX: R10.9 Unspecified abdominal pain (principal); R07.81 Pleurodynia; R53.83 Other fatigue; E28.2 Polycystic ovarian syndrome
CPT/HCPCS: 36415; 71046; 80053; 81001; 82607; 84439; 84443; 85025; 85652; 86140; 87086

== ENCOUNTER 2023-11-11 22:04 | Emergency (ER) | payer OTHER, MEDICAID, SELFPAY ==
--- NOTE | ~2023-11-11 | US_ITS ---
EXAMINATION: US PELVIS CLINICAL INFORMATION: Left lower quadrant pain. LMP August, uncertain of exact dates. COMPARISON: Pelvic ultrasound 04/11/2021. TECHNIQUE: Ultrasound of the pelvis is performed using both transabdominal and transvaginal transducers along with Doppler. Transvaginal imaging is performed due to inadequate visualization transabdominally. FINDINGS: The uterus is anteverted measuring 7.2 x 2.7 x 4.3 cm. No uterine mass. The endometrium measures up to 0.8 cm in thickness. There are a few simple appearing cysts in the cervix measuring up to 1 cm, favoring to represent nabothian cysts. The right ovary measures 2.7 x 2.7 x 2.2 cm, 8.4 mL. The left ovary measures 2.1 x 2 x 1.5 cm, 3.3 mL. There is a complex 2.4 x 1.4 x 2.2 cm right ovarian cystic appearing lesion with heterogeneous debris and suggestion of retractile clot. There is a complex 1 x 1 x 1.2 cm left ovarian cystic appearing lesion with homogeneous internal echoes. No associated vascularity or solid nodules in these lesions. There is preserved flow to both ovaries on color and spectral Doppler at the moment of this examination. No free fluid. US/US pelvic ovarian doppler IMPRESSION: Complex bilateral ovarian cystic lesions; the left ovarian lesion could represent an endometrioma, and the right ovarian lesions could represent a hemorrhagic cyst, although appearance of the right ovarian lesion is somewhat atypical. Recommend a follow-up ultrasound in 6-12 weeks to ensure resolution.
--- NOTE | ~2023-11-11 | US_ITS ---
EXAMINATION: US PELVIS CLINICAL INFORMATION: Left lower quadrant pain. LMP August, uncertain of exact dates. COMPARISON: Pelvic ultrasound 04/11/2021. TECHNIQUE: Ultrasound of the pelvis is performed using both transabdominal and transvaginal transducers along with Doppler. Transvaginal imaging is performed due to inadequate visualization transabdominally. FINDINGS: The uterus is anteverted measuring 7.2 x 2.7 x 4.3 cm. No uterine mass. The endometrium measures up to 0.8 cm in thickness. There are a few simple appearing cysts in the cervix measuring up to 1 cm, favoring to represent nabothian cysts. The right ovary measures 2.7 x 2.7 x 2.2 cm, 8.4 mL. The left ovary measures 2.1 x 2 x 1.5 cm, 3.3 mL. There is a complex 2.4 x 1.4 x 2.2 cm right ovarian cystic appearing lesion with heterogeneous debris and suggestion of retractile clot. There is a complex 1 x 1 x 1.2 cm left ovarian cystic appearing lesion with homogeneous internal echoes. No associated vascularity or solid nodules in these lesions. There is preserved flow to both ovaries on color and spectral Doppler at the moment of this examination. No free fluid. US/US pelvic and transvaginal IMPRESSION: Complex bilateral ovarian cystic lesions; the left ovarian lesion could represent an endometrioma, and the right ovarian lesions could represent a hemorrhagic cyst, although appearance of the right ovarian lesion is somewhat atypical. Recommend a follow-up ultrasound in 6-12 weeks to ensure resolution.
[2023-11-11 22:37] VITALS: BP 125/77; PULSE 66; RESP 18; TEMP 36.1; O2SAT 96; BMI 29.3
--- NOTE | 2023-11-12 00:23 | MHC.EDTECH ---
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
[2023-11-12 00:27] LABS: Appearance Urine Cloudy; Color Urine Yellow; Glucose Urine UA Negative (Negative); Leukocyte Esterase Urine Negative (Negative); Nitrite Urine Negative (Negative); PH 5.5 (5.0-9.0); Specific Gravity - Urine >= 1.030 (1.005-1.025); Urine Blood Negative (Negative); Urine Ketones Trace mg/dL (Negative); Urine Protein Negative (Neg-Trace)
[2023-11-12 00:28] LABS: UPreg QC Valid YES; Urine Pregnancy NEGATIVE (NEGATIVE)
--- NOTE | 2023-11-12 01:09 | ED_ITS ---
HPI - Female Genitourinary General Chief complaint: Abdominal Pain Stated complaint: something burst? Time Seen by Provider: 11/12/23 01:07 Source: patient Mode of arrival: ambulatory Limitations: no limitations History of Present Illness HPI Narrative: Patient's history of ovarian cyst and endometriosis noticed sudden onset of pain in lower abdomen area just prior to arrival because the pain patient bent over and fell hitting her head to the ground without loss of consciousness slowly pain improved after arrival Related Data Home Medications Medication Instructions Recorded Confirmed acetaminophen 650 mg 650 - 1,300 mg PO Q8H PRN 02/27/21 08/20/21 tablet,extended release epinephrine 0.3 mg/0.3 mL IM 02/27/21 08/20/21 injection, auto-injector ibuprofen 600 mg tablet 600 mg PO TID PRN pain 02/27/21 08/20/21 Previous Rx's Medication Instructions Recorded ibuprofen 600 mg tablet 600 mg PO Q6H PRN fever or pain 11/12/23 #30 tabs Allergies Allergy/AdvReac Type Severity Reaction Status Date / Time bee pollen Allergy Severe Anaphylaxis Verified 11/11/23 22:37 oxycodone Allergy Severe Hives Verified 11/11/23 22:37 shellfish derived Allergy Severe Anaphylaxis Verified 11/11/23 22:37 midazolam [From VERSED] Allergy Unknown UNKNOWN Verified 11/11/23 22:37 Opioids - Morphine Analogues Allergy Unknown HIVES Verified 11/11/23 22:37 [OPIOIDS - MORPHINE ANALOGUES] Sulfa (Sulfonamide Allergy Unknown Hives Verified 11/11/23 22:37 Antibiotics) sulfamethoxazole Allergy Unknown UNKNOWN Verified 11/11/23 22:37 [From BACTRIM] trimethoprim [From BACTRIM] Allergy Unknown UNKNOWN Verified 11/11/23 22:37 aspirin [ASA] Allergy Unknown Verified 11/11/23 22:37 Penicillins AdvReac Gastrointestinal Verified 11/11/23 22:37 Upset Review of Systems Review of Systems: Yes all other systems are reviewed and are negative PMFSH Past Medical History Medical History Family history of breast cancer Cyst of right breast Ovarian cyst Pelvic pain in female Abnormal Pap smear of cervix Breast pain Hot flashes Smoking PCOS (polycystic ovarian syndrome) Encounter for annual routine gynecological examination Asthma Other cyst of bone, right shoulder Miscarriage Cervical cancer SVT (supraventricular tachycardia) Hypotension Epilepsy Surgical History Hx of spinal surgery History of loop electrical excision procedure (LEEP) [place] teeth extracted Family History Family History Mother Breast cancer, Onset Age: 66 Social History Social History Alcohol intake: never Patient Tobacco Use Status: Current everyday Tobacco user Tobacco use type: Cigarette Cigarette Packs Per Day: 10 Substance Use Type: Marijuana Advance Directives: No Advance Directives Information Provided: No Gender identity: Female Physical Exam Vital Signs: Vital Signs: Last Vital Signs Temp 97.7 F 11/12/23 01:18 Pulse 68 11/12/23 01:18 Resp 18 11/11/23 22:37 BP 106/70 11/12/23 01:18 Pulse Ox 98 11/12/23 01:18 O2 Del Method Room Air 11/12/23 01:18 BMI result Body Mass Index 29.3 Appearance: Alert. Oriented X3. Mild distress Eyes: No pallor or icterus ENT: Pharynx normal. Oral Mucosa moist AT NC Neck: Normal inspection. Neck supple. No midline tenderness CVS: Normal heart rate and rhythm. Pulses normal. Respiratory: No respiratory distress. Equal air entry bilateral, no wheezing/rales/rhonchi Abdomen: Soft mild suprapubic tenderness no guarding or rebound tenderness. Bowel sounds are present, no mass palpable, no CVA tenderness Skin: Skin warm and dry. Normal skin color. Normal skin turgor. Neuro: Oriented X 3. Medical Decision Making Medical Decision Making [facility] Narrative: Patient with right hemorrhagic cyst with a roommate who is likely the cause of the pain feeling much better at this time but stable will discharge patient home on ibuprofen Differential Diagnosis Differential Diagnoses: The differential diagnosis associated with the presentation includes Ovarian cyst/ovarian torsion/endometriosis Lab Data [facility] Lab Attestation statement: I reviewed the patient's lab results. Labs: Lab Results 11/12/23 Range/Units 00:19 Urine Color Yellow Urine Appearance Cloudy Urine pH 5.5 (5.0-9.0) Ur Specific [place] >= 1.030 H (1.005-1.025) Urine Protein Negative (Neg-Trace) mg/dL Urine Glucose (UA) Negative (Negative) mg/dL Urine Ketones Trace (Negative) mg/dL Urine Blood Negative (Negative) Urine Nitrite Negative (Negative) Ur Leukocyte Esterase Negative (Negative) Urine Test NEGATIVE (NEGATIVE) Independent Interpretation I performed an independent interpretation of an: Ultrasound Radiology Impression Discussion of test interpretation with radiology: I have reviewed the radiologist's reading. Radiologist Impression: US/US pelvic and transvaginal IMPRESSION: Complex bilateral ovarian cystic lesions; the left ovarian lesion could represent an endometrioma, and the right ovarian lesions could represent a hemorrhagic cyst, although appearance of the right ovarian lesion is somewhat atypical. Recommend a follow-up ultrasound in 6-12 weeks to ensure resolution. Discharge Plan Discharge Clinical Impression: Hemorrhagic cyst of right ovary Patient Disposition: Home, Self-Care Instructions: Ovarian Cyst (ED) Additional Instructions: Ibuprofen for pain Follow-up with your cost specialist Report to the ER if pain gets worse Prescriptions: New ibuprofen 600 mg tablet 600 mg PO Q6H PRN (Reason: fever or pain) Qty: 30 0RF No Action acetaminophen 650 mg tablet extended release 650 - 1,300 mg PO Q8H PRN ibuprofen 600 mg tablet 600 mg PO TID PRN (Reason: pain) epinephrine 0.3 mg/0.3 mL auto-injector IM
[2023-11-12 01:18] VITALS: BP 106/70; PULSE 68; TEMP 36.5; O2SAT 98
[2023-11-12] MEDS: Ibuprofen 600 MG TABLET PO (01:24)
== END 2023-11-12 01:27 | disposition home or self-care (01) ==
PROVIDERS: Emergency Provider Internal Medicine; PCP Internal Medicine
DX: N83.201 Unspecified ovarian cyst, right side (principal); R10.2 Pelvic and perineal pain; Z79.899 Other long term (current) drug therapy
CPT/HCPCS: 76830; 76856; 81003; 81025; 93975; 99284

== ENCOUNTER 2023-11-26 07:31 | Outpatient (REF) | payer OTHER, SELFPAY ==
[2023-11-27 05:41] LABS: CT PCR NOT DETECTED (Not Detect.); NG PCR NOT DETECTED (Not Detect.)
[2023-11-27 13:46] LABS: BV Int Neg Control Negative (Negative); BV Int Pos Control Positive (Positive)
[2023-12-02 09:33] LABS: HPV mRNA E6/E7 rflx Not Detected (Not Detected)
== END 2023-11-26 07:32 | disposition home or self-care (01) ==
LOC: HO.LNP 07:31
PROVIDERS: Obstetrics & Gynecology; PCP Internal Medicine; Visit Provider Advanced Practice Midwife
DX: Z01.419 Encounter for gynecological examination (general) (routine) without abnormal findings (principal); Z11.51 Encounter for screening for human papillomavirus (HPV); N93.9 Abnormal uterine and vaginal bleeding, unspecified; N83.299 Other ovarian cyst, unspecified side; R23.2 Flushing; R10.2 Pelvic and perineal pain; Z87.2 Personal history of diseases of the skin and subcutaneous tissue
CPT/HCPCS: 0353U; 81025; 87480; 87510; 87624; 87660; 88142

== ENCOUNTER 2023-11-26 07:31 | Outpatient (AMB) | payer OTHER, SELFPAY ==
[2023-11-26 07:35] VITALS: BMI 29.0
--- NOTE | 2023-11-26 07:35 | A.OFFVIS_ITS ---
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 Required: No Information Interpreted: non-clinical & clinical Airplane Patrol Pilot: Airplane Patrol Pilot Present (Latonya Prieto GOVEA) Accompanied by: Self / Same As Patient Allergies bee pollen Allergy (Severe, Verified 11/26/23 07:35) Anaphylaxis oxycodone Allergy (Severe, Verified 11/26/23 07:35) Hives shellfish derived Allergy (Severe, Verified 11/26/23 07:35) Anaphylaxis midazolam [From VERSED] Allergy (Unknown, Verified 11/26/23 07:35) UNKNOWN Opioids - Morphine Analogues [OPIOIDS - MORPHINE ANALOGUES] Allergy (Unknown, Verified 11/26/23 07:35) HIVES Sulfa (Sulfonamide Antibiotics) Allergy (Unknown, Verified 11/26/23 07:35) Hives sulfamethoxazole [From BACTRIM] Allergy (Unknown, Verified 11/26/23 07:35) UNKNOWN trimethoprim [From BACTRIM] Allergy (Unknown, Verified 11/26/23 07:35) UNKNOWN aspirin [ASA] Allergy (Verified 11/26/23 07:35) Unknown Penicillins Adverse Reaction (Verified 11/26/23 07:35) Gastrointestinal Upset Is last menstrual period known: Yes Last menstrual period: 11/12/23 HPI HPI Comments History of Present Illness Details Patient is here today for a follow-up emergency room visit she was previously seen for intense pelvic pain after feeling a pop, symptoms and ultrasound suggested of a recent ruptured ovarian cyst. Menses spacing in the last year skipping 1-2 months at a time. LMP 11/18/23 x4 days heavy for 2 days, prior LMP 08/2023. She reports hot flashes. 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 She reports having laser treatment many years ago when she was seen in [place]. History of PCOS and infertility. She has an adopted 2-year-old son. 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 Mammogram up-to-date 07/2023. [facility] Medical History (Updated 11/26/23 @ 08:47 by Astrid Vasques CNM) History of abnormal cervical Papanicolaou smear Family history of breast cancer Cyst of right breast Ovarian cyst Pelvic pain in female Abnormal Pap smear of cervix Breast pain Hot flashes Smoking PCOS (polycystic ovarian syndrome) Encounter for annual routine gynecological examination Asthma Other cyst of bone, right shoulder Miscarriage Cervical cancer SVT (supraventricular tachycardia) Hypotension Epilepsy Surgical History (Updated 11/26/23 @ 08:57 by Astrid Vasques CNM) Hx of spinal surgery History of loop electrical excision procedure (LEEP) [place] teeth extracted Family History Mother Breast cancer, Onset Age: 66 Social History Alcohol intake: never Patient Tobacco Use Status: Current everyday Tobacco user Tobacco use type: Cigarette Cigarette Packs Per Day: 10 Substance Use Type: Marijuana Gender identity: Female Female Reproductive History Menstrual Age of Menarche: 12 Date of last menstrual period: 11/12/23 Total pregnancies: 0 Review of Systems Const All systems reviewed & are unremarkable except as noted in HPI and below Reports as per HPI Eyes Reports no additional complaints ENT Reports no additional complaints Card Reports no additional complaints Resp Reports no additional complaints GI Reports as per HPI and Reports no additional complaints Reports as per HPI Musc Reports no additional complaints Skin/Breast Reports as per HPI Neuro Reports no additional complaints Psych Reports no additional complaints Endo Reports no additional complaints Ray/Lymph Reports no additional complaints Aller/Immun Reports no additional complaints Physical Exam Vital Signs: BMI result Body Mass Index 29.0 Const General: cooperative, healthy appearing, no acute distress, well developed and alert Orientation/consciousness: patient oriented x3 HEENT Head: Yes normal to inspection Eyes General: appearance normal, both eyes and all related structures Neck Neck: Yes normal visual inspection Thyroid: Thyroid normal Chest Chest palpation & inspection: normal inspection of the chest and other (no puckering, dimpling, peau de orange, retraction, discharge, masses) Breast/axilla inspection: normal inspection of the breasts Breast/axilla palpation: normal palpation of the breasts Resp Effort & Inspection: normal respiratory effort GI Inspection: Yes normal to inspection Palpation (GI): Soft to palpation Rectal Exam - Female: deferred General: Yes bladder normal to palpation External Female Exam: normal external appearance and normal appearance of the urethra Speculum Exam - Vagina: normal appearance of the vagina, normal palpation and normal vaginal discharge Speculum Exam - Cervix: normal appearance of the cervix, normal palpation and Nabothian cyst present Bimanual exam- vagina & uterus: normal bimanual exam, normal palpation, uterine size normal, bladder normal to palpation, normal palpation and non-tender Bimanual Exam- Adnexa, other: no masses Skin General skin exam: no rashes or lesions noted Rashes: no rashes Neuro General: patient oriented x3 Cognition (Neuro): normal cognition Extrem General: Yes normal to inspection Psych Attitude: cooperative Thought process: Normal thought process present Results AMB Test Urine AMB Test Urine Negative Last Edit by Latonya Moreau CMA on 08:25 Results Reviewed Results Reviewed: Laboratory Last Values Tst Clinic Negative 11/26/23 08:25 Assessment & Plan Assessment & Plan (1) History of abnormal cervical Papanicolaou smear: Code(s): Z87.42 - Personal history of other diseases of the female genital tract (2) Complex ovarian cyst: Code(s): N83.299 - Other ovarian cyst, unspecified side (3) Hot flashes: Code(s): R23.2 - Flushing (4) Pelvic pain: Code(s): R10.2 - Pelvic and perineal pain (5) Encounter for well woman exam with routine gynecological exam: Code(s): Z01.419 - Encounter for gynecological examination (general) (routine) without abnormal findings Plan Discussed: Ultrasound findings inclusive to complex ovarian cyst and possible endometrioma. Discussed endometriosis symptoms. Advised follow-up for ovarian cyst and endometrioma to monitor if any concerns may need a consult at [facility] if indicated and further studies and examination is to evaluate. Perimenopause versus menopause, monitor symptoms including hot flashes, transi tional period for her cycles would indicate skipping, after 1 year of no periods would be menopausal. Advised to call the office if there is any heavy prolonged periods or bleeding less than 3 weeks. She has not experienced these symptoms of menstrual irregularities. Advised if any pelvic pain that was severe to seek immediate care at the emergency room, if mild pain she can use an [id number] medication and try heating pad. She will schedule follow-up repeat ultrasound at 8 weeks and then return to the office to discuss the results and plan of care. Advised to call sooner if there is any other concerns. Current recommendations for pap smears per ASCCP guidelines. Breast awareness and periodic breast exams. Maintain a healthy lifestyle including a well balanced diet and routine e xercise. Mammogram yearly. Patient verbalizes understanding and agrees to the plan of care. She was given opportunity to ask questions and all questions were answered to the best of my ability. RTO in one year for annual artificial insemination technician examination. This note is constructed using voice recognition software. While every effort has been made to ensure accuracy, casino cashier manager errors may have been included. Orders: Orders US pelvic and transvaginal 8 Weeks N83.299 - Other ovarian cyst, unspecified side Pap Smear Today N93.9 - Abnormal uterine and vaginal bleeding, unspecified Bacterial Vaginosis Panel Today N93.9 - Abnormal uterine and vaginal bleeding, unspecified CT NG by PCR Today N93.9 - Abnormal uterine and vaginal bleeding, unspecified AMB HCG Urine Test Today Z32.02 - Encounter for test, result negative Coding Level of Care Code Est Pt Prev Care 40-64y(95493) Diagnoses History of abnormal cervical Papanicolaou smear Z87.42 Complex ovarian cyst N83.299 Hot flashes R23.2 Pelvic pain R10.2 Encounter for well woman exam with routine gynecological exam Z01.419
== END 2023-11-26 08:13 | disposition home or self-care (01) ==
PROVIDERS: PCP Internal Medicine; Visit Provider Advanced Practice Midwife
DX: Z01.419 Encounter for gynecological examination (general) (routine) without abnormal findings (principal); R10.2 Pelvic and perineal pain; R23.2 Flushing; Z87.42 Personal history of other diseases of the female genital tract; N83.299 Other ovarian cyst, unspecified side; Z32.02 Encounter for pregnancy test, result negative
CPT/HCPCS: 99396

== ENCOUNTER 2023-12-14 17:43 | Emergency (ER) | payer OTHER, SELFPAY ==
--- NOTE | ~2023-12-14 | CT_ITS ---
EXAMINATION: CT HEAD WITHOUT CONTRAST CLINICAL INFORMATION: Dizziness and headaches. COMPARISON: None. TECHNIQUE: Contiguous axial imaging was performed from the skullbase to vertex without intravenous administration of contrast. This CT examination was performed using dose optimization techniques as appropriate, variously including the following: *Automated exposure control *Adjustment of mA and/or kV according to patient size (this includes techniques or standardized protocols for targeted exams where dose is matched to indication/reason for exam; i.e. extremities or head) *Use of iterative reconstruction technique DLP: 596 mGy-cm. FINDINGS: There is no evidence of acute intracranial hemorrhage or territorial infarction. No abnormal mass effect or midline shift is seen. Estrada to white matter differentiation is well preserved. No extra-axial fluid collections are identified. The ventricles are normal in size. There is no abnormal attenuation within the brain parenchyma. The osseous structures and soft tissues are normal. The mastoid air cells and visualized portions of the paranasal sinuses are well aerated. CT/CT head/brain wo IV con IMPRESSION: No acute intracranial pathology.
[2023-12-14 17:46] VITALS: BP 115/68; PULSE 65; RESP 24; TEMP 37; O2SAT 98; BMI 25.8
--- NOTE | 2023-12-14 17:47 | ED.GENADULT ---
HPI - General Adult General Chief complaint: Neuro Symptoms/Deficit Stated complaint: stroke? nausea Related Data Home Medications Medication Instructions Recorded Confirmed acetaminophen 650 mg 650 - 1,300 mg PO Q8H PRN 02/27/21 08/20/21 tablet,extended release epinephrine 0.3 mg/0.3 mL IM 02/27/21 08/20/21 injection, auto-injector Previous Rx's Medication Instructions Recorded ibuprofen 600 mg tablet 600 mg PO Q6H PRN fever or pain 11/12/23 #30 tabs Allergies Allergy/AdvReac Type Severity Reaction Status Date / Time bee pollen Allergy Severe Anaphylaxis Verified 12/14/23 17:50 oxycodone Allergy Severe Hives Verified 12/14/23 17:50 shellfish derived Allergy Severe Anaphylaxis Verified 12/14/23 17:50 midazolam [From VERSED] Allergy Unknown UNKNOWN Verified 12/14/23 17:50 Opioids - Morphine Analogues Allergy Unknown HIVES Verified 12/14/23 17:50 [OPIOIDS - MORPHINE ANALOGUES] Sulfa (Sulfonamide Allergy Unknown Hives Verified 12/14/23 17:50 Antibiotics) sulfamethoxazole Allergy Unknown UNKNOWN Verified 12/14/23 17:50 [From BACTRIM] trimethoprim [From BACTRIM] Allergy Unknown UNKNOWN Verified 12/14/23 17:50 aspirin [ASA] Allergy Unknown Verified 12/14/23 17:50 Penicillins AdvReac Gastrointestinal Verified 12/14/23 17:50 Upset PMFSH Past Medical History Medical History (Updated 12/15/23 @ 20:13 by SAROJ Wilson) History of abnormal cervical Papanicolaou smear Family history of breast cancer Cyst of right breast Ovarian cyst Pelvic pain in female Abnormal Pap smear of cervix Breast pain Hot flashes Smoking PCOS (polycystic ovarian syndrome) Encounter for annual routine gynecological examination Asthma Other cyst of bone, right shoulder Miscarriage Cervical cancer SVT (supraventricular tachycardia) Hypotension Epilepsy Surgical History (Updated 11/26/23 @ 08:57 by Astrid Vasques CNM) Hx of spinal surgery History of loop electrical excision procedure (LEEP) [place] teeth extracted Family History Family History Mother Breast cancer, Onset Age: 66 Social History Social History Alcohol intake: never Patient Tobacco Use Status: Current everyday Tobacco user Tobacco use type: Cigarette Cigarette Packs Per Day: 10 Substance Use Type: Marijuana Advance Directives: No Advance Directives Information Provided: No Gender identity: Female Physical Exam ED Vital Signs: Vital Signs - 24 hr 12/14/23 17:46 Temperature 98.6 F Pulse Rate 65 Respiratory Rate 24 H Blood Pressure 115/68 Pulse Oximetry 98 Oxygen Delivery Method Room Air BMI result Body Mass Index 25.8 Course Course Course Narrative: This is an RME: Additional HPI, ROS, PE not included below will be deferred to primary provider. This is a [id number]-sly-female, with a hx of ovarian cysts, SVT, hypotension, eplilepsy, presenting to the ER with a complaints of neck pain and headache. Patient states that at 1:00PM she felt a shooting pain radiating from her neck and into her head. Reporting she is feeling disoriented . Reports that she vomited once. Denies hx of migraines. Endorses some dizziness. Patient appears to be anxious, she is fully neurologically intact, NIH score of 0. Plan: Labs, EKG, CT head Reevaluation(s) Reevaluation #1: Patient left prior to completing treatment Discharge Plan Discharge Clinical Impression: Headache Patient Disposition: Left W/O Completing Treatment Prescriptions: No Action ibuprofen 600 mg tablet 600 mg PO Q6H PRN (Reason: fever or pain) Qty: 30 0RF acetaminophen 650 mg tablet extended release 650 - 1,300 mg PO Q8H PRN epinephrine 0.3 mg/0.3 mL auto-injector IM Discharge Date/Time: 12/14/23 19:19
--- NOTE | 2023-12-14 17:58 | ECG_ITS ---
Test Reason : NORO SYMPTOM Blood Pressure : / mmHG Vent. Rate : 063 BPM Atrial Rate : 063 BPM P-R Int : 138 ms QRS Dur : 072 ms QT Int : 402 ms P-R-T Axes : 050 080 038 degrees QTc Int : 411 ms Normal sinus rhythm Nonspecific ST and T wave abnormality Borderline ECG When compared with ECG of 14-MAY-2023 13:00, No significant change was found Referred By: Carmelina Canales Electronically Signed By:MARY SERRANO
--- NOTE | 2023-12-14 19:00 | MHC.EDTECH ---
PATIENT EKG TAKEN AND WAS READ BY PROVIDER ,PATIENT REFUSED BLOOD WORK ,BRIM RAISER AWARE .
== END 2023-12-14 19:19 | disposition left against medical advice (07) ==
PROVIDERS: Emergency Provider Emergency Medicine; PCP Internal Medicine
DX: R51.9 Headache, unspecified (principal); R42 Dizziness and giddiness; R94.31 Abnormal electrocardiogram [ECG] [EKG]
CPT/HCPCS: 70450; 93005; 99283; 99284

== ENCOUNTER → 2023-12-14 17:58 | Outpatient (BNV) | payer OTHER, SELFPAY | PROVIDERS: Emergency Provider Emergency Medicine; PCP Internal Medicine; Visit Provider Internal Medicine | DX: R94.31 Abnormal electrocardiogram [ECG] [EKG] (principal) | CPT/HCPCS: 93010 ==

== ENCOUNTER 2024-01-07 11:16 | Outpatient (REF) | payer OTHER, SELFPAY ==
--- NOTE | ~2024-01-07 | US_ITS ---
EXAMINATION: US PELVIS CLINICAL INFORMATION: Follow-up ovarian cyst; the last menstrual period is not specified. COMPARISON: Pelvic ultrasound dated 11/11/2023. TECHNIQUE: Ultrasound of the pelvis is performed using both transabdominal and transvaginal transducers along with Doppler. Transvaginal imaging is performed due to inadequate visualization transabdominally. FINDINGS: Uterus: The uterus is anteverted and anteflexed. The uterus measures 6.1 x 3.0 x 4.3 cm. Nabothian cysts are seen within the cervix. The double wall endometrial thickness is 3 mm. The uterus is smooth in contour and has normal myometrial echogenicity. No visible fibroid. Adnexa: The right ovary is normal in size and echotexture, measuring 3.5 x 1.7 x 1.9 cm, volume 5.9 mL. The right ovary contains a 1.0 x 0.9 x 0.9 cm corpus luteum cyst. The previously noted 2.4 cm mildly complex right ovarian cyst is resolved in the interim. The left ovary is not visualized. The previously noted complex left ovarian cyst is not redemonstrated. No adnexal mass is seen. There is a very small amount of free fluid within the cul-de-sac. US/US pelvic and transvaginal IMPRESSION: 1. Previously noted complex bilateral ovarian cysts have resolved in the interim. 2. The right ovary contains a 1.0 cm corpus luteum cyst, which requires no imaging follow-up. 3. The left ovary is not visualized with certainty. 4. Nabothian cysts are seen within the cervix. 5. There is a very small amount of nonspecific free fluid within the cul-de-sac.
[2024-01-07 12:58] LABS: Erythrocyte Sedimentation Rate 10 MM/HR (0-20)
[2024-01-07 13:19] LABS: Alanine Aminotransferase 13 U/L (0-31); Albumin Level 4.1 g/dL (3.5-5.0); Alkaline Phosphatase 61 U/L (39-117); Anion Gap 9 (12-20); Aspartate Amino Transferase 16 U/L (5-31); Bilirubin Total 0.5 mg/dL (0.0-1.0); Blood Urea Nitrogen 9 mg/dL (9-16); C Reactive Protein 0.68 mg/dL (< or = 0.50); Calcium 9.1 mg/dL (8.4-10.2); Carbon Dioxide 26 mmol/L (22-29); Chloride 109 mmol/L (96-108); Cholesterol 184 mg/dL (<200); Estimated Glomerular Filt Rate > 60; Glucose Random 89 mg/dL (60-115); HDL Cholesterol 49 mg/dL (>40); LDL Cholesterol Calculated 121 mg/dL (<100); Potassium 4.4 mmol/L (3.3-5.1); Sodium 140 mmol/L (135-145); Total Protein 7.2 g/dL (6.5-8.0); Triglycerides 72 mg/dL (<150)
[2024-01-07 13:20] LABS: Vitamin D 25-OH Total 23.3 ng/mL (>30)
[2024-01-09 10:54] LABS: Anti Nuclear Antibody Screen NEGATIVE (NEGATIVE)
== END 2024-01-07 11:17 | disposition home or self-care (01) ==
LOC: HO.US 11:16
PROVIDERS: PCP Internal Medicine; Visit Provider Internal Medicine
DX: Z13.6 Encounter for screening for cardiovascular disorders (principal); M81.0 Age-related osteoporosis without current pathological fracture; E28.2 Polycystic ovarian syndrome
CPT/HCPCS: 36415; 76830; 76856; 80053; 80061; 82306; 82550; 85652; 86038; 86140

== ENCOUNTER 2024-01-21 16:07 | Outpatient (REF) | payer OTHER, SELFPAY ==
--- NOTE | ~2024-01-21 | US_ITS ---
EXAMINATION: US PELVIC AND TRANSVAGINAL CLINICAL INFORMATION: Ovarian cyst. COMPARISON: Pelvic ultrasound 2 weeks ago on 01/07/2024. TECHNIQUE: Ultrasound of the pelvis is performed using both transabdominal and transvaginal transducers along with Doppler. Transvaginal imaging is performed due to inadequate visualization transabdominally. FINDINGS: UTERUS: The uterus is anteverted and measures 7.0 x 3.4 x 4.1 cm. The double wall endometrial thickness is 11 mm. The uterus is smooth in contour and has normal myometrial echogenicity. No visible fibroid. Nabothian cysts are present in the cervix. ADNEXA: Both ovaries are visualized. There is normal color flow to the adnexa. There is no ovarian torsion. There is no pelvic ascites or fluid collection. Right ovary measures 3.9 x 1.8 x 1.1 cm, for a volume of 4.0 mL, and appears normal. Small normal follicular cysts are seen. Left ovary measures 2.4 x 1.3 x 2.2 cm, for a volume of 3.6 mL, and appears normal. cm. Small normal follicular cysts are present. US/US pelvic and transvaginal IMPRESSION: Normal pelvic ultrasound.
== END 2024-01-21 16:08 | disposition home or self-care (01) ==
LOC: HO.US 16:07
PROVIDERS: PCP Internal Medicine; Visit Provider Advanced Practice Midwife
DX: N83.299 Other ovarian cyst, unspecified side (principal)
CPT/HCPCS: 76830; 76856

== ENCOUNTER 2024-01-25 11:15 | Outpatient (REF) | payer OTHER, SELFPAY ==
[2024-01-25 13:15] LABS: MANUAL DIFF FLAG NO
[2024-01-25 13:29] LABS: Basophils Percent Auto 0.4 % (0-2); Eosinophils Absolute Auto 0.1 X10*3/uL (0.0-0.4); Eosinophils Percent Auto 0.7 % (0-4); Hematocrit 44.2 % (37.0-47.0); Hemoglobin 15.2 g/dl (12.0-16.0); Imm Gran Abs Auto 0.02 X10*3/uL (0.00-0.03); Imm Gran Pct Auto 0.3 % (0.0-0.4); Lymphocytes Absolute Auto 1.8 X10*3/uL (1.2-4.9); Lymphocytes Percent Auto 25.7 % (20-40); Mean Corpuscular HGB Conc 34.4 g/dl (31.0-35.0); Mean Corpuscular Hemoglobin 30.5 pg (27.0-33.0); Mean Corpuscular Volume 88.6 fL (80.0-98.0); Mean Platelet Volume 8.4 fL (9.4-12.3); Monocytes Absolute Auto 0.4 X10*3/uL (0.1-1.2); Monocytes Percent Auto 6.4 % (2-11); Neutrophils Absolute Auto 4.6 x10*3/uL (2.0-8.3); Neutrophils Percent Auto 66.5 % (45-73); Platelet Count 232 X10*3/uL (160-400); Red Blood Count 4.99 X10*6/uL (4.20-5.50); Red Cell Distribution Width 12.1 % (11.0-16.0); White Blood Count 6.9 X10*3/uL (4.8-10.8)
[2024-01-25 13:40] LABS: D Dimer High Sensitivity 164 NG/ML
== END 2024-01-25 11:16 | disposition home or self-care (01) ==
LOC: HO.10HDL 11:15
PROVIDERS: Visit Provider Internal Medicine
DX: R06.02 Shortness of breath (principal)
CPT/HCPCS: 36415; 85025; 85379

== ENCOUNTER 2024-02-04 07:39 | Outpatient (AMB) | payer OTHER, SELFPAY ==
--- NOTE | 2024-02-04 07:43 | MHC.OFFVIS ---
Vital Signs 02/04/24 07:45 Height 5 ft 6 in Weight 158 lb 11.725 oz BMI 25.6 BP 98/60 Intake Visit Reasons: Ultra sound follow up Submarine Worker Required: No Information Interpreted: non-clinical & clinical Business Development Representative: Business Development Representative Present Accompanied by: Self / Same As Patient Allergies bee pollen Allergy (Severe, Verified 02/04/24 07:46) Anaphylaxis oxycodone Allergy (Severe, Verified 02/04/24 07:46) Hives shellfish derived Allergy (Severe, Verified 02/04/24 07:46) Anaphylaxis midazolam [From VERSED] Allergy (Unknown, Verified 02/04/24 07:46) UNKNOWN Opioids - Morphine Analogues [OPIOIDS - MORPHINE ANALOGUES] Allergy (Unknown, Verified 02/04/24 07:46) HIVES Sulfa (Sulfonamide Antibiotics) Allergy (Unknown, Verified 02/04/24 07:46) Hives sulfamethoxazole [From BACTRIM] Allergy (Unknown, Verified 02/04/24 07:46) UNKNOWN trimethoprim [From BACTRIM] Allergy (Unknown, Verified 02/04/24 07:46) UNKNOWN aspirin [ASA] Allergy (Verified 02/04/24 07:46) Unknown Penicillins Adverse Reaction (Verified 02/04/24 07:46) Gastrointestinal Upset Is last menstrual period known: Yes Last menstrual period: 01/31/24 HPI Comments Details: Patient is here today for ultrasound follow-up, prior visit noted pelvic pain she reports it has since resolved and that her last period was normal. History of PCOS. She also reports that she has had some onset symptoms of dyspareunia with deep penetration not resolve with position changes at times. [facility] Medical History History of abnormal cervical Papanicolaou smear Family history of breast cancer Cyst of right breast Ovarian cyst Pelvic pain in female Abnormal Pap smear of cervix Breast pain Hot flashes Smoking PCOS (polycystic ovarian syndrome) Encounter for annual routine gynecological examination Asthma Other cyst of bone, right shoulder Miscarriage Cervical cancer SVT (supraventricular tachycardia) Hypotension Epilepsy Surgical History Hx of spinal surgery History of loop electrical excision procedure (LEEP) [place] teeth extracted Family History Mother Breast cancer, Onset Age: 66 Social History Alcohol intake: never Patient Tobacco Use Status: Current everyday Tobacco user Tobacco use type: Cigarette Cigarette Packs Per Day: 10 Substance Use Type: Marijuana Gender identity: Female Female Reproductive History Menstrual Age of Menarche: 12 Date of last menstrual period: 01/31/24 Review of Systems Const All systems reviewed & are unremarkable except as noted in HPI and below Endo Reports no additional complaints Physical Exam Vital Signs: Last Vital Signs BP 98/60 02/04/24 07:45 BMI result Body Mass Index 25.6 Const General: cooperative, healthy appearing and no acute distress Psych Appearance: well kempt Attitude: cooperative Thought process: Normal thought process present Results Reviewed Results Reviewed: [address] [address] Ultrasound Report Signed Patient: Georgie Valencia MR#: [id number] : 1980 Acct:[id number] Age/Sex: 43 / F ADM Date: 01/21/24 Loc: HO.US Attending Dr: Astrid Vasques CNM Ordering Physician: Astrid Vasques CNM Date of Service: 01/21/24 Procedure(s): US pelvic and transvaginal Accession Number(s): [id number] cc: Zac Noriega MD; Astrid Vasques CNM~ EXAMINATION: US PELVIC AND TRANSVAGINAL CLINICAL INFORMATION: Ovarian cyst. COMPARISON: Pelvic ultrasound 2 weeks ago on 01/07/2024. TECHNIQUE: Ultrasound of the pelvis is performed using both transabdominal and transvaginal transducers along with Doppler. Transvaginal imaging is performed due to inadequate visualization transabdominally. FINDINGS: UTERUS: The uterus is anteverted and measures 7.0 x 3.4 x 4.1 cm. The double wall endometrial thickness is 11 mm. The uterus is smooth in contour and has normal myometrial echogenicity. No visible fibroid. Nabothian cysts are present in the cervix. ADNEXA: Both ovaries are visualized. There is normal color flow to the adnexa. There is no ovarian torsion. There is no pelvic ascites or fluid collection. Right ovary measures 3.9 x 1.8 x 1.1 cm, for a volume of 4.0 mL, and appears normal. Small normal follicular cysts are seen. Left ovary measures 2.4 x 1.3 x 2.2 cm, for a volume of 3.6 mL, and appears normal. cm. Small normal follicular cysts are present. US/US pelvic and transvaginal IMPRESSION: Normal pelvic ultrasound. Dictated By: Curtis Pratt MD Signed By: <Electronically signed by Curtis Pratt MD in OV> 01/27/24 2301 DD/ 1638 TD/TT: Hard Metals Engraver Hand: SALIMA Assessment & Plan Assessment & Plan (1) Encounter to discuss test results: Code(s): Z71.2 - Person consulting for explanation of examination or test findings (2) Dyspareunia, female: Code(s): N94.10 - Unspecified dyspareunia (3) Perimenopause: Code(s): N95.1 - Menopausal and female climacteric states Category: Medical Plan Discussed: Ultrasound findings unremarkable. Perimenopausal versus menopausal symptoms. When to call for menstrual cycle changes if heavy prolonged or bleeding less than 21 days apart. Suggest trying positions with intimacy that are more comfortable, consider silicone rings for her partner for spacers. Reasons for changes with aging pelvic anatomy can be muscle weakness and prolapse, also consider retroverted uterus may contribute, other causes. Recommended [facility] website to review literature. Next appointment for inspector watch assembly annual November 2024, call sooner if any other concerns for sooner evaluation. All of her questions and concerns were addressed to the best of my ability. She is agreeable to the plan of care. This note is constructed using voice recognition software. While every effort has been made to ensure accuracy, auger machine offbearer errors may have been included. Coding Level of Care Code Est Pt Level 3 (18480) Diagnoses Encounter to discuss test results Z71.2 Dyspareunia, female N94.10 Perimenopause N95.1
[2024-02-04 07:45] VITALS: BP 98/60; BMI 25.6
== END 2024-02-04 08:20 | disposition home or self-care (01) ==
PROVIDERS: PCP Internal Medicine; Visit Provider Advanced Practice Midwife
DX: Z71.2 Person consulting for explanation of examination or test findings (principal); N94.10 Unspecified dyspareunia; N95.1 Menopausal and female climacteric states
CPT/HCPCS: 99213

== ENCOUNTER → 2024-02-04 07:39 | Outpatient (BNVA) | payer OTHER, SELFPAY | PROVIDERS: PCP Internal Medicine; Visit Provider Advanced Practice Midwife ==

== ENCOUNTER 2024-04-20 07:29 | Outpatient (REF) | payer OTHER, MEDICAID, SELFPAY ==
[2024-04-20 17:33] LABS: Bacterial Vaginosis PCR NEGATIVE (Negative); Candida Group PCR NOT DETECTED (Not Detect); Candida glab krusei PCR NOT DETECTED (Not Detect); Trichomonas vaginalis PCR NOT DETECTED (Not Detect)
[2024-04-20 18:00] LABS: CT PCR NOT DETECTED (Not Detect.); NG PCR NOT DETECTED (Not Detect.)
== END 2024-04-20 07:30 | disposition home or self-care (01) ==
LOC: HO.LNP 07:29
PROVIDERS: PCP Internal Medicine; Visit Provider Obstetrics & Gynecology
DX: R10.2 Pelvic and perineal pain (principal); R31.29 Other microscopic hematuria; B37.31 Acute candidiasis of vulva and vagina
CPT/HCPCS: 0352U; 81002; 81025; 87086; 87491; 87591

== ENCOUNTER 2024-04-20 07:29 | Outpatient (AMB) | payer OTHER, SELFPAY ==
[2024-04-20 07:33] VITALS: BP 100/62; BMI 25.6
--- NOTE | 2024-04-20 07:33 | MHC.OFFVIS ---
Vital Signs 04/20/24 07:33 Height 5 ft 6 in Weight 158 lb 11.725 oz BMI 25.6 BP 100/62 Intake Visit Reasons: pelvic pain/discharge Delivery Professional Required: No Information Interpreted: non-clinical & clinical Manager Recruitment: Manager Recruitment Present (Latonya Prieto GOVEA) Accompanied by: Self / Same As Patient Allergies bee pollen Allergy (Severe, Verified 04/20/24 07:36) Anaphylaxis oxycodone Allergy (Severe, Verified 04/20/24 07:36) Hives shellfish derived Allergy (Severe, Verified 04/20/24 07:36) Anaphylaxis midazolam [From VERSED] Allergy (Unknown, Verified 04/20/24 07:36) UNKNOWN Opioids - Morphine Analogues [OPIOIDS - MORPHINE ANALOGUES] Allergy (Unknown, Verified 04/20/24 07:36) HIVES Sulfa (Sulfonamide Antibiotics) Allergy (Unknown, Verified 04/20/24 07:36) Hives sulfamethoxazole [From BACTRIM] Allergy (Unknown, Verified 04/20/24 07:36) UNKNOWN trimethoprim [From BACTRIM] Allergy (Unknown, Verified 04/20/24 07:36) UNKNOWN aspirin [ASA] Allergy (Verified 04/20/24 07:36) Unknown Penicillins Adverse Reaction (Verified 04/20/24 07:36) Gastrointestinal Upset Is last menstrual period known: Yes Last menstrual period: 03/28/24 HPI Comments Details: The patient is presenting 2 weeks after an episode of pelvic pain started 2 weeks ago. It has completely resolved. The patient has history of endometriosis. The patient is also complaining of vulvovaginal irritation/itching over the last week associated foul odor [employer] Medical History History of abnormal cervical Papanicolaou smear Family history of breast cancer Cyst of right breast Ovarian cyst Pelvic pain in female Abnormal Pap smear of cervix Breast pain Hot flashes Smoking PCOS (polycystic ovarian syndrome) Encounter for annual routine gynecological examination Asthma Other cyst of bone, right shoulder Miscarriage Cervical cancer SVT (supraventricular tachycardia) Hypotension Epilepsy Surgical History Hx of spinal surgery History of loop electrical excision procedure (LEEP) [place] teeth extracted Family History Mother Breast cancer, Onset Age: 66 Social History Alcohol intake: never Patient Tobacco Use Status: Current everyday Tobacco user Tobacco use type: Cigarette Cigarette Packs Per Day: 10 Substance Use Type: Marijuana Gender identity: Female Female Reproductive History Menstrual Age of Menarche: 12 Date of last menstrual period: 03/28/24 Review of Systems Const All systems reviewed & are unremarkable except as noted in HPI and below Physical Exam Vital Signs: BMI result Body Mass Index 25.6 General: Yes no CVA tenderness External Female Exam: No normal external appearance (Eczematous bilateral vulvar skin changes) and normal appearance of the urethra Speculum Exam - Vagina: normal appearance of the vagina, normal palpation, no lesions and no masses Speculum Exam - Cervix: normal appearance of the cervix, normal palpation, no lesions, no masses and nontender Bimanual exam- vagina & uterus: normal bimanual exam, normal palpation, uterine size normal, normal palpation, uterine shape normal, No Cervical tenderness present and non-tender Bimanual Exam- Adnexa, other: normal adnexae Back/Spine/Pelvis Back: no CVA tenderness Results AMB Test Urine AMB Test Urine Negative Last Edit by Latonya Moreau CMA on 04/20/24 07:41 AMB Urinalysis Dipstick UR Leukocytes Negative Last Edit by Latonya Moreau CMA on 04/20/24 07:47 UR Nitrite Negative Last Edit by Latonya Moreau CMA on 04/20/24 07:47 UR Urobilinogen Normal Last Edit by Latonya Moreau CMA on 04/20/24 07:47 UR Protein 100 Last Edit by Latonya Moreau CMA on 04/20/24 07:47 UR Ph 6.5 Last Edit by Latonya Moreau CMA on 04/20/24 07:47 UR Blood Trace Last Edit by Latonya Moreau CMA on 04/20/24 07:47 UR Specific [place] Last Edit by Latonya Moreau CMA on 04/20/24 07:47 UR Ketone Negative Last Edit by Latonya Moreau CMA on 04/20/24 07:47 UR Bilirubin Negative Last Edit by Latonya Moreau CMA on 04/20/24 07:47 UR Glucose Negative Last Edit by Latonya Moreau CMA on 04/20/24 07:47 Assessment & Plan Assessment & Plan (1) Pelvic pain: Code(s): R10.2 - Pelvic and perineal pain Category: Medical Plan: Urine test done in the office was negative. GC and chlamydia taken and pelvic ultrasound ordered. Discussed with the patient the differential diagnosis of pelvic pain including but not limited to adnexal, uterine masses, pelvic infections (PID), GI the (Irritable bowel syndrome, diverticulitis, others), musculoskeletal, myofascial pain abdominal wall , adhesions, endometriosis, psychological and others causes. Will check results and treat accordingly. All questions answered, the patient verbalized understanding. Instructed the patient to schedule follow-up appointment in 2 weeks (2) Microscopic hematuria: Code(s): R31.29 - Other microscopic hematuria Category: Medical Plan: Urine dip showed microscopic hematuria, urine culture sent. Will repeat urine dip in 2 weeks. Discussed with the patient the possible causes of microscopic hematuria including but not limited to: interstitial cystitis, polyps, stones, masses, urethral inflammatory processes and others. If Urine Culture is negative and repeat urine dip in 2 weeks shows persistent microscopic hematuria, will proceed with CT abdomen/pelvis and urology referral. Instructions given the patient to schedule a 2 week urine dip follow-up appointment. All questions answered and the patient verbalized understanding. (3) Vulvovaginitis due to Yudi: Code(s): B37.31 - Acute candidiasis of vulva and vagina Category: Medical Plan: GC/CT, Bacterial Vaginosis panel taken, Terazol 0.8% q.h.s. for 3 days with Lotrisone cream b.i.d. for 5 days was sent to the patient's pharmacy. The patient was instructed to call if symptoms don't improve in 48 hours. Orders: Orders AMB Urinalysis Dipstick Today R31.29 - Other microscopic hematuria CT NG by PCR Today R10.2 - Pelvic and perineal pain AMB HCG Urine Test Today Z32.02 - Encounter for test, result negative Urine Culture Today R10.2 - Pelvic and perineal pain, R31.29 - Other microscopic hematuria Bacterial Vaginosis Panel Today R10.2 - Pelvic and perineal pain Medications: New clotrimazole-betamethasone 1-0.05 % 1 appl topical BID 5 days 45 grams 0RF terconazole 0.8% 1 appful vaginal BEDTIME 3 days 20 grams 0RF Coding Level of Care Code Est Pt Level 3 (16093) Diagnoses Pelvic pain R10.2 Microscopic hematuria R31.29 Vulvovaginitis due to Yudi B37.31
== END 2024-04-20 07:51 | disposition home or self-care (01) ==
PROVIDERS: PCP Internal Medicine; Visit Provider Obstetrics & Gynecology
DX: R10.2 Pelvic and perineal pain (principal); R31.29 Other microscopic hematuria; B37.31 Acute candidiasis of vulva and vagina; Z32.02 Encounter for pregnancy test, result negative
CPT/HCPCS: 99213

== ENCOUNTER 2024-05-03 16:22 | Outpatient (REF) | payer OTHER, SELFPAY ==
--- NOTE | ~2024-05-03 | US_ITS ---
EXAMINATION: US PELVIS CLINICAL INFORMATION: Pelvic and perineal pain, last menstrual period February 29, 2024. COMPARISON: January 21, 2024 TECHNIQUE: Ultrasound of the pelvis is performed using both transabdominal and transvaginal transducers along with Doppler. Transvaginal imaging is performed due to inadequate visualization transabdominally. FINDINGS: The uterus is anteverted and measures 6.9 x 2.7 x 4.2 cm. Endometrial thickness is 8 mm. Nabothian cysts. Right ovary measures 2.6 x 1.8 x 1.4 cm, volume 3.4 mL. Left ovary measures 4.6 x 2.4 x 3.9 cm, volume 22.5 mL. Small amount of free fluid in the left adnexa. 3.1 x 2.1 x 3.4 cm left ovarian simple cyst. US/US pelvic and transvaginal IMPRESSION: 3.7 cm left ovarian simple cyst. Small amount of free fluid in the left adnexa. Gynecologic consultation and correlation with clinical exam recommended to determine further management.
== END 2024-05-03 16:23 | disposition home or self-care (01) ==
LOC: HO.US 16:22
PROVIDERS: PCP Internal Medicine; Visit Provider Obstetrics & Gynecology
DX: R10.2 Pelvic and perineal pain (principal); N83.201 Unspecified ovarian cyst, right side
CPT/HCPCS: 76830; 76856

== ENCOUNTER 2024-05-25 16:20 | Outpatient (REF) | payer OTHER, SELFPAY ==
--- NOTE | ~2024-05-25 | US_ITS ---
EXAMINATION: US RETROPERITONEAL COMPLETE (RENAL) CLINICAL INFORMATION: Hematuria. COMPARISON: Ultrasound abdomen 12/05/2020. TECHNIQUE: Real-time imaging of the kidneys and bladder. FINDINGS: RIGHT KIDNEY: 9.9 x 4.3 x 3.6 cm (SAG x AP x TRV). The kidney is normal in size, contour, and echogenicity. Renal cortical thickness is normal. No calculi or focal parenchymal lesions. No hydronephrosis. LEFT KIDNEY: 9.6 x 4.3 x 3.6 cm (SAG x AP x TRV). The kidney is normal in size, contour, and echogenicity. Renal cortical thickness is normal. No calculi or focal parenchymal lesions. No hydronephrosis. BLADDER: Well distended and normal. Bilateral ureteral jets are demonstrated. Prevoid bladder volume is 180 mL. Postvoid bladder volume is 12 mL. US/US retroperitoneal comp IMPRESSION: Unremarkable examination. Electronically signed by: Eduin Dominguez MD 05/30/2024 09:27 PM EDT
== END 2024-05-25 16:21 | disposition home or self-care (01) ==
LOC: HO.US 16:20
PROVIDERS: PCP Internal Medicine; Visit Provider Internal Medicine
DX: R31.9 Hematuria, unspecified (principal)
CPT/HCPCS: 76770

== ENCOUNTER 2024-06-01 07:33 | Outpatient (AMB) | payer OTHER, SELFPAY ==
--- NOTE | 2024-06-01 07:34 | MHC.OFFVIS ---
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 Required: No Information Interpreted: non-clinical & clinical Accompanied by: Self / Same As Patient Allergies bee pollen Allergy (Severe, Verified 06/01/24 07:36) Anaphylaxis oxycodone Allergy (Severe, Verified 06/01/24 07:36) Hives shellfish derived Allergy (Severe, Verified 06/01/24 07:36) Anaphylaxis midazolam [From VERSED] Allergy (Unknown, Verified 06/01/24 07:36) UNKNOWN Opioids - Morphine Analogues [OPIOIDS - MORPHINE ANALOGUES] Allergy (Unknown, Verified 06/01/24 07:36) HIVES Sulfa (Sulfonamide Antibiotics) Allergy (Unknown, Verified 06/01/24 07:36) Hives sulfamethoxazole [From BACTRIM] Allergy (Unknown, Verified 06/01/24 07:36) UNKNOWN trimethoprim [From BACTRIM] Allergy (Unknown, Verified 06/01/24 07:36) UNKNOWN aspirin [ASA] Allergy (Verified 06/01/24 07:36) Unknown Penicillins Adverse Reaction (Verified 06/01/24 07:36) Gastrointestinal Upset HPI Comments Details: Presenting for follow-up regarding her pelvic pain. The following workup was done so far: GC/CT negative Urine test last visit in the office was negative Urine dip showed microscopic hematuria, urine culture was negative for pathogen above 100 K bart Pelvic ultrasound showed the following: The uterus is anteverted and measures 6.9 x 2.7 x 4.2 cm. Endometrial thickness is 8 mm. Nabothian cysts. Right ovary measures 2.6 x 1.8 x 1.4 cm, volume 3.4 mL. Left ovary measures 4.6 x 2.4 x 3.9 cm, volume 22.5 mL. Small amount of free fluid in the left adnexa. 3.1 x 2.1 x 3.4 cm left ovarian simple cyst The patient is still complaining of pelvic pain, and vulvovaginal irritation, took Terazol, BV panel was negative colpo candidiasis without any improvement In addition the patient has not had her menstrual cycle over the last few weeks, no hair growth or nipple discharge [facility] Medical History History of abnormal cervical Papanicolaou smear Family history of breast cancer Cyst of right breast Ovarian cyst Pelvic pain in female Abnormal Pap smear of cervix Breast pain Hot flashes Smoking PCOS (polycystic ovarian syndrome) Encounter for annual routine gynecological examination Asthma Other cyst of bone, right shoulder Miscarriage Cervical cancer SVT (supraventricular tachycardia) Hypotension Epilepsy Surgical History Hx of spinal surgery History of loop electrical excision procedure (LEEP) [place] teeth extracted Family History Mother Breast cancer, Onset Age: 66 Social History Alcohol intake: never Patient Tobacco Use Status: Current everyday Tobacco user Tobacco use type: Cigarette Cigarette Packs Per Day: 10 Substance Use Type: Marijuana Gender identity: Female Female Reproductive History Menstrual Age of Menarche: 12 Review of Systems Const All systems reviewed & are unremarkable except as noted in HPI and below Physical Exam Vital Signs: BMI result Body Mass Index 25.6 General: Yes no CVA tenderness External Female Exam: normal appearance of the urethra and other (Eczematous bilateral changes) Speculum Exam - Vagina: normal appearance of the vagina, normal palpation, no lesions and no masses Speculum Exam - Cervix: normal appearance of the cervix, normal palpation, no lesions, no masses and nontender Bimanual exam- vagina & uterus: normal bimanual exam, normal palpation, uterine size normal, normal palpation, uterine shape normal, No Cervical tenderness present and non-tender Bimanual Exam- Adnexa, other: normal adnexae Back/Spine/Pelvis Back: no CVA tenderness Results AMB Urinalysis Dipstick UR Leukocytes Negative Last Edit by Latonya Moreau CMA on 06/01/24 07:42 UR Nitrite Negative Last Edit by Latonya Moreau CMA on 06/01/24 07:42 UR Urobilinogen Normal Last Edit by Latonya Moreau CMA on 06/01/24 07:42 UR Protein Trace Last Edit by Latonya Moreau CMA on 06/01/24 07:42 UR Ph 6.5 Last Edit by Latonya Moreau CMA on 06/01/24 07:42 UR Blood Negative Last Edit by Latonya Moreau CMA on 06/01/24 07:42 UR Specific [place] 1.015 Last Edit by Latonya Moreau CMA on 06/01/24 07:42 UR Ketone Negative Last Edit by Latonya Moreau CMA on 06/01/24 07:42 UR Bilirubin Negative Last Edit by Latonya Moreau CMA on 06/01/24 07:42 UR Glucose Negative Last Edit by Latonya Moreau CMA on 06/01/24 07:42 Assessment & Plan Assessment & Plan (1) Pelvic pain: Comment: Possible endometriosis Code(s): R10.2 - Pelvic and perineal pain Category: Medical Plan: Discussed with the patient the results of the workup done including negative GC/chlamydia, urine dip, urine test and pelvic ultrasound. Differential diagnosis of pattern layout worker causes that have not be ruled out yet include but not limited to endometriosis, pelvic adhesions , or other. Recommended for the patient to see her PCP for further workup for non pattern layout worker causes; if the all the results are negative and the patient's pelvic pain is persistent, instructions given to patient to call back for further testing. Meanwhile, instructions were given the patient to go to emergency room or call in case of fever above 100.4, heavy vaginal bleeding, persistence or worsening of her pelvic pain. All questions answered, the patient verbalized understanding. (2) Microscopic hematuria: Code(s): R31.29 - Other microscopic hematuria Category: Medical Plan: Repeat urine dip in the office today was negative no evidence of microscopic hematuria. The patient was reassured. All questions answered, the patient verbalized understanding (3) Amenorrhea: Code(s): N91.2 - Amenorrhea, unspecified Category: Medical Plan: Discussed with the patient the possible causes of amenorrhea including but not limited to anovulation, thyroid and prolactin disorders, , end organ problems (uterine synechiae), medication side effects and others. The workup includes to start with UPT if negative this will be followed by a progesterone withdrawal test x 5 days if + bleeding this will be followed by endometrial biopsy, TSH, PRL if negative then the diagnosis is anovulation. if no bleeding occurs will treat with Premarin x 21 days followed by Provera if no bleeding occurs will rule out Premature ovarian failure with FSH/LH. Directions given the patient to schedule a 2 week follow-up appointment with endometrial biopsy (4) Vulvar irritation: Comment: ? Contact dermatitis Code(s): N90.89 - Other specified noninflammatory disorders of vulva and perineum Category: Medical Plan: Discussed with the patient the finding on pelvic exam signs of eczematous possibly secondary to contact dermatitis of unknown source since Yudi was negative. Will treat with clobetasol b.i.d. for 5 days. Instructions given the patient to schedule a follow-up appointment for vulvar reinspection in 2 weeks. All questions answered, the patient verbalized understanding Orders: Orders AMB Urinalysis Dipstick Today R31.29 - Other microscopic hematuria TSH reflex Free T4 Today N91.2 - Amenorrhea, unspecified HCG Quantitative Today N91.2 - Amenorrhea, unspecified Prolactin Today N91.2 - Amenorrhea, unspecified Medications: New clobetasol 0.05% 1 appl topical BID 5 days 45 grams 0RF Discontinued clotrimazole-betamethasone 1-0.05 % Discontinued Reason: Doctor's Order 1 appl topical BID 5 days 45 grams 0RF Coding Level of Care Code Est Pt Level 3 (68139) Diagnoses Pelvic pain R10.2 Microscopic hematuria R31.29 Amenorrhea N91.2 Vulvar irritation N90.89
[2024-06-01 07:36] VITALS: BP 100/62; BMI 25.6
== END 2024-06-01 08:30 | disposition home or self-care (01) ==
LOC: HO.HWS 07:33
PROVIDERS: PCP Internal Medicine; Visit Provider Obstetrics & Gynecology
DX: R10.2 Pelvic and perineal pain (principal); R31.29 Other microscopic hematuria; N91.2 Amenorrhea, unspecified; N90.89 Other specified noninflammatory disorders of vulva and perineum
CPT/HCPCS: 99213

== ENCOUNTER → 2024-06-01 07:33 | Outpatient (BNVA) | payer OTHER, SELFPAY | PROVIDERS: PCP Internal Medicine; Visit Provider Obstetrics & Gynecology ==

== ENCOUNTER 2024-06-01 08:04 | Emergency (ER) | payer OTHER, SELFPAY ==
--- NOTE | ~2024-06-01 | XR_ITS ---
EXAMINATION: XR CHEST CLINICAL INFORMATION: Chest pain. COMPARISON: September 07, 2023 TECHNIQUE: 2 views of the chest were obtained. FINDINGS: The lungs are well expanded. No focal consolidation. No pleural effusion. Cardiac silhouette is within normal limits. XR/XR chest 2V IMPRESSION: No acute abnormality. Electronically signed by: Olegario Ellis MD 06/01/2024 10:30 AM EDT RP
[2024-06-01 08:05] VITALS: BP 109/71; PULSE 69; RESP 20; TEMP 37.2; O2SAT 95; BMI 29.3
[2024-06-01 08:26] VITALS: BP 110/72; PULSE 62; RESP 16; TEMP 36.9; O2SAT 96
--- NOTE | 2024-06-01 08:45 | ED.GENADULT ---
HPI - General Adult General Chief complaint: Abdominal Pain Stated complaint: abd pain Time Seen by Provider: 06/01/24 08:44 Source: patient Mode of arrival: ambulatory Limitations: no limitations History of Present Illness ED Provider: Roxane Abdullahi PA-C HPI narrative: Georgie is a 44 year old female with a past medical history of asthma, hypotension, SVT, epilepsy, cervical cancer s/p surgical resection, as well as pelvic pain and amenorrhea that are currently being worked up by her [facility] provider that presents today after experiencing a short episode of epigastric pain. She notes that she was at an appointment today when she experienced sharp, epigastric pain, rating it 8/10 without radiation, followed by feeling light headed and nauseous. She notes that this episode only lasted around 10-20 seconds and spontaneously resolved, noting that her only current symptom is feeling a little tired. She denies any trauma to the area or any inciting factors for this episode. Of note, she states that it feels like something has been sitting on my chest for a few days, but is pretty mild and has also resolved. She denies any current chest pain, palpitations, shortness of breath, fevers, chills, nausea, vomiting, diarrhea, or abdominal pain. She denies any recent illnesses or recent travel. Onset (ago): hour(s) (2) Location: abdomen (epigastric area) Radiation: non-radiation Severity scale (1-10): 8 Quality: stabbing Pain Consistency: now resolved Treatments prior to arrival: none Related Data Home Medications ?Medication ?Instructions ?Recorded ?Confirmed acetaminophen 650 mg 650 - 1,300 mg PO Q8H PRN 02/27/21 08/20/21 tablet,extended release epinephrine 0.3 mg/0.3 mL IM 02/27/21 08/20/21 injection, auto-injector Previous Rx's ?Medication ?Instructions ?Recorded ibuprofen 600 mg tablet 600 mg PO Q6H PRN fever or pain 11/12/23 #30 tabs terconazole 0.8 % vaginal cream 1 appful vaginal BEDTIME 3 days 04/20/24 #20 grams clobetasol 0.05 % topical cream 1 appl topical BID 5 days #45 grams 06/01/24 Allergies Allergy/AdvReac Type Severity Reaction Status Date / Time bee pollen Allergy Severe Anaphylaxis Verified 06/01/24 08:08 oxycodone Allergy Severe Hives Verified 06/01/24 08:08 shellfish derived Allergy Severe Anaphylaxis Verified 06/01/24 08:08 midazolam [From VERSED] Allergy Unknown UNKNOWN Verified 06/01/24 08:08 Opioids - Morphine Analogues Allergy Unknown HIVES Verified 06/01/24 08:08 [OPIOIDS - MORPHINE ANALOGUES] Sulfa (Sulfonamide Allergy Unknown Hives Verified 06/01/24 08:08 Antibiotics) sulfamethoxazole Allergy Unknown UNKNOWN Verified 06/01/24 08:08 [From BACTRIM] trimethoprim [From BACTRIM] Allergy Unknown UNKNOWN Verified 06/01/24 08:08 aspirin [ASA] Allergy Unknown Verified 06/01/24 08:08 Penicillins AdvReac Gastrointestinal Verified 06/01/24 08:08 Upset Review of Systems Review of Systems: Yes all other systems are reviewed and are negative Constitutional: Constitutional: Reports as per HPI, Denies chills, Denies fever(s) and Reports lethargy Eyes: Eyes: Reports as per HPI ENT: Reports system reviewed and no additional complaints, except as documented Cardiovascular: Cardiovascular: Reports as per HPI, Reports Epigastric Pain, Denies irregular heart rhythm, Reports lightheadedness and Denies dyspnea Respiratory: Respiratory: Reports as per HPI and Denies dyspnea Gastrointestinal: Gastrointestinal: Reports as per HPI, Reports abdominal pain (epigastric pain), Denies change in bowel habits, Denies diarrhea, Denies nausea and Denies vomiting Genitourinary: Genitourinary: Reports as per HPI Musculoskeletal: Musculoskeletal: Reports no additional musculoskeletal complaints Integumentary/Breasts: Skin/Breast: Reports system reviewed and no additional complaints, except as docu Neurologic: Reports system reviewed and no additional complaints, except as documented Psychiatric: Psychiatric: Reports no additional psychiatric complaints Endocrine: Endocrine: Reports no additional endocrine complaints Hematologic/Lymphatic: Hematologic/Lymphatic: Reports no additional hematologic/lymphatic complaints Allergic/Immunologic: Allergic/Immunologic: Reports no additional allergic/immunologic complaints PMFSH Past Medical History Attestation statement: The following information was validated with the patient. Source: old records reviewed and nursing notes reviewed Medical History History of abnormal cervical Papanicolaou smear Family history of breast cancer Cyst of right breast Ovarian cyst Pelvic pain in female Abnormal Pap smear of cervix Breast pain Hot flashes Smoking PCOS (polycystic ovarian syndrome) Encounter for annual routine gynecological examination Asthma Other cyst of bone, right shoulder Miscarriage Cervical cancer SVT (supraventricular tachycardia) Hypotension Epilepsy Surgical History Hx of spinal surgery History of loop electrical excision procedure (LEEP) [place] teeth extracted Family History Family History Mother Breast cancer, Onset Age: 66 Social History Social History Alcohol intake: never Patient Tobacco Use Status: Current everyday Tobacco user Tobacco use type: Cigarette Cigarette Packs Per Day: 10 Smoked in Last 30 Days: No Use of substances other than those prescribed or required for medical reasons: No Substance Use Type: Marijuana Advance Directives: No Advance Directives Information Provided: No Do you have a plan to hurt others: No Plan Patient : No Gender identity: Female Physical Exam ED Vital Signs: Vital Signs - 24 hr 06/01/24 08:05 06/01/24 08:26 06/01/24 09:50 Temperature 98.9 F 98.4 F Pulse Rate 69 62 63 Respiratory Rate 20 16 16 Blood Pressure 109/71 110/72 118/65 Pulse Oximetry 95 96 95 Oxygen Delivery Method Room Air Room Air Room Air 06/01/24 10:27 06/01/24 10:52 Temperature 98.1 F 97.4 F Pulse Rate 54 54 Respiratory Rate 16 16 Blood Pressure 105/58 L 105/58 L Pulse Oximetry 97 97 Oxygen Delivery Method Room Air Room Air BMI result Body Mass Index 29.3 Const General: cooperative, no acute distress, alert and awake Nutritional Appearance: average body habitus Orientation/consciousness: patient oriented x3 Limitations: no limitations HENMT Head: Yes normal to inspection and Yes atraumatic Ears: hearing grossly normal bilaterally and external ears normal General nose exam: Normal external nose present, no nasal discharge noted and no epistaxis Face and sinus: Yes normal facial exam, No abrasion and No laceration Mouth: Normal oral and palatal mucosa present, no drooling and no muffled voice Eyes General: appearance normal, both eyes and all related structures Alignment and Position: position normal Periorbital: periorbital findings normal Eyelids: Yes eyelids normal Conjunctivae: conjunctivae normal Sclerae: sclerae normal Pupils: Equal, round and reactive pupils present EOM: EOMs intact bilaterally Neck Neck: Yes normal visual inspection, Yes full ROM and Yes no lymphadenopathy Chest Chest palpation & inspection: normal inspection of the chest Resp Effort & Inspection: normal respiratory effort, able to speak in complete sentences and no use of accessory muscles Cardio Jugular venous distension: no JVD Rate: regular rate Rhythm: regular rhythm Heart sounds: no gallops, no murmurs and no rubs GI Inspection: Yes normal to inspection and No distended Palpation (GI): Soft to palpation, nontender, no guarding, not rigid and hepatosplenomegaly present Skin General skin exam: no rashes or lesions noted Neuro General: patient oriented x3 Cranial nerves: Yes Equal, round and reactive pupils present and Yes Bilaterally intact EOM present Cognition (Neuro): normal cognition Extrem General: Yes normal to inspection, Yes full ROM and Yes capillary refill normal Psych Appearance: grossly normal Mental Status: mental status grossly normal Affect: normal affect Attitude: cooperative Thought process: Normal thought process present Thought content: Normal thought content present Insight: Good insight present (Psych) Medical Decision Making Medical Decision Making MDM Narrative: Patient is a 4 year old assigned female at with a history of PCOS, asthma, epilepsy, and endometreosis presenting to the emergency department today after an episode of epigastric pain. Patient's physical exam was unremarkable. Patient's blood work was unremarkable. Patient's EKG was unremarkable. Patient's chest x-ray showed no acute process. I explained my physical exam findings as well as all test results to the patient. I answered all questions asked by the patient. I stressed the importance of the patient taking her medication as directed (either prescribed or as the over the counter packaging recommends). I stressed the importance of the patient following up with her primary care provider. I stressed the importance of the patient returning to the emergency department immediately if her symptoms were to worsen or if she were to develop any dizziness, shortness of breath, difficulty breathing, chest pain, blurry vision, loss of vision, nausea, vomiting, abdominal pain, fever, chills, back pain, or any other complaints. Patient verbalized agreement and understanding with this treatment plan and discharge. Differential Diagnosis Differential Diagnoses: The differential diagnosis associated with the presentation includes Epigastric pain NSTEMI STEMI Admission/Observation Consideration of admission/observation: Escalation of care including admission/observation considered Patient would have been admitted to the hospital had her work up had any findings where hospital admission was appropriate and her clinical presentation warranted hospital admission. Lab Data [facility] Lab Attestation statement: I reviewed the patient's lab results. My interpretation of these results are in the MDM Rationale portion of this note. 06/01/24 09:05 06/01/24 09:05 Labs: Lab Results 06/01/24 Range/Units 09:05 WBC 7.0 (4.8-10.8) X10*3/uL RBC 5.14 (4.20-5.50) X10*6/uL Hgb 15.8 (12.0-16.0) g/dl Hct 45.4 (37.0-47.0) % MCV 88.3 (80.0-98.0) fL MCH 30.7 (27.0-33.0) pg MCHC 34.8 (31.0-35.0) g/dl RDW 12.0 (11.0-16.0) % Plt Count 233 (160-400) X10*3/uL MPV 8.1 L (9.4-12.3) fL Immature Gran % (Auto) 0.3 (0.0-0.4) % Neut % (Auto) 67.5 (45-73) % Lymph % (Auto) 23.7 (20-40) % [place] % (Auto) 7.0 (2-11) % Eos % (Auto) 1.1 (0-4) % Baso % (Auto) 0.4 (0-2) % Lymph # (Auto) 1.7 (1.2-4.9) X10*3/uL [place] # (Auto) 0.5 (0.1-1.2) X10*3/uL Eos # (Auto) 0.1 (0.0-0.4) X10*3/uL Baso # (Auto) 0.0 (0.0-0.2) X10*3/uL Abs Immat Gran (auto) 0.02 (0.00-0.03) X10*3/uL Absolute Neuts (auto) 4.7 (2.0-8.3) x10*3/uL Absolute Nucleated RBC 0.000 (0.0-0.012) X10*3/uL Nucleated RBC % (auto) 0.0 (0.0-0.2) /100WBC Sodium 143 (135-145) mmol/L Potassium 3.8 (3.3-5.1) mmol/L Chloride 111 H (96-108) mmol/L Carbon Dioxide 23 (22-29) mmol/L Anion Gap 13 (12-20) BUN 10 (9-16) mg/dL Creatinine 0.80 (0.5-1.4) mg/dL Estim Creat Clear Calc 83.6 Estimated GFR > 60 Random Glucose 97 (60-115) mg/dL Calcium 9.4 (8.4-10.2) mg/dL Magnesium 2.4 (1.6-2.6) mg/dL Total Bilirubin 0.4 (0.0-1.0) mg/dL AST 16 (5-31) U/L ALT 17 (0-31) U/L Alkaline Phosphatase 77 (39-117) U/L Troponin I High Sens < 2.7 (<3.5-17.0) ng/L Total Protein 7.4 (6.5-8.0) g/dL Albumin 4.3 (3.5-5.0) g/dL Lipase 37 (8-78) U/L Beta HCG, Quant < 2 mIU/mL Independent Interpretation I performed an independent interpretation of an: EKG and Plain X-Ray Interpretation: My interpretation is in agreement with the radiologist's impression of this imaging study. EXAMINATION: XR CHEST CLINICAL INFORMATION: Chest pain. COMPARISON: September 07, 2023 TECHNIQUE: 2 views of the chest were obtained. FINDINGS: The lungs are well expanded. No focal consolidation. No pleural effusion. Cardiac silhouette is within normal limits. XR/XR chest 2V IMPRESSION: No acute abnormality. Electronically signed by: Olegario Ellis MD 06/01/2024 10:30 AM EDT RP Dictated By: Paramjit Ellis MD Signed By: Electronically signed by Paramjit Ellis MD 06/01/24 1030 Vent. Rate: 061 BPM Atrial Rate: 061 BPM P-R Int: 132 ms QRS Dur: 086 ms QT Int: 428 ms P-R-T Axes: 038 068 014 degrees QTc Int: 430 ms Normal sinus rhythm Normal ECG When compared with ECG of 14-DEC-2023 18:56, T wave inversion no longer evident in Anterior leads Referred By: Roxane Abdullahi Electronically Signed By:JARED OWEN [facility] Dictated By: Jared Owen DO Signed By: Electronically signed by Jared Owen DO 06/01/24 1154 Radiology Impression Discussion of test interpretation with radiology: I have reviewed the radiologist's reading. Discharge Plan Discharge Clinical Impression: Acute epigastric pain Patient Disposition: Home, Self-Care Instructions: Epigastric Pain (ED) Additional Instructions: Follow up with your primary care provider. Return to the emergency department immediately if your symptoms worsen or if you develop any dizziness, shortness of breath, difficulty breathing, chest pain, blurry vision, loss of vision, nausea, vomiting, abdominal pain, fever, chills, back pain, or any other complaints. Prescriptions: No Action ibuprofen 600 mg tablet 600 mg PO Q6H PRN (Reason: fever or pain) Qty: 30 0RF acetaminophen 650 mg tablet extended release 650 - 1,300 mg PO Q8H PRN epinephrine 0.3 mg/0.3 mL auto-injector IM terconazole 0.8 % cream 1 appful vaginal BEDTIME 3 Days Qty: 20 0RF clobetasol 0.05 % cream 1 appl topical BID 5 Days Qty: 45 0RF Referrals: Zac Noriega MD [Primary Care Provider] - Stand Alone Forms: Work/School Release Interventions: ED Discharge Assessment Last Done: 06/01/24 10:52 Discharge Date/Time: 06/01/24 11:00 Print Language: Nepali
--- NOTE | 2024-06-01 09:08 | ECG_ITS ---
Test Reason : epigastric pain Blood Pressure : / mmHG Vent. Rate : 061 BPM Atrial Rate : 061 BPM P-R Int : 132 ms QRS Dur : 086 ms QT Int : 428 ms P-R-T Axes : 038 068 014 degrees QTc Int : 430 ms Normal sinus rhythm Normal ECG When compared with ECG of 14-DEC-2023 18:56, T wave inversion no longer evident in Anterior leads Referred By: Roxane Abdullahi Electronically Signed By:JARED PRICE
[2024-06-01 09:12] LABS: MANUAL DIFF FLAG NO
[2024-06-01 09:14] LABS: Basophils Percent Auto 0.4 % (0-2); Eosinophils Absolute Auto 0.1 X10*3/uL (0.0-0.4); Eosinophils Percent Auto 1.1 % (0-4); Hematocrit 45.4 % (37.0-47.0); Hemoglobin 15.8 g/dl (12.0-16.0); Imm Gran Abs Auto 0.02 X10*3/uL (0.00-0.03); Imm Gran Pct Auto 0.3 % (0.0-0.4); Lymphocytes Absolute Auto 1.7 X10*3/uL (1.2-4.9); Lymphocytes Percent Auto 23.7 % (20-40); Mean Corpuscular HGB Conc 34.8 g/dl (31.0-35.0); Mean Corpuscular Hemoglobin 30.7 pg (27.0-33.0); Mean Corpuscular Volume 88.3 fL (80.0-98.0); Mean Platelet Volume 8.1 fL (9.4-12.3); Monocytes Absolute Auto 0.5 X10*3/uL (0.1-1.2); Neutrophils Absolute Auto 4.7 x10*3/uL (2.0-8.3); Neutrophils Percent Auto 67.5 % (45-73); Platelet Count 233 X10*3/uL (160-400); Red Blood Count 5.14 X10*6/uL (4.20-5.50)
[2024-06-01 09:36] LABS: Alanine Aminotransferase 17 U/L (0-31); Albumin Level 4.3 g/dL (3.5-5.0); Alkaline Phosphatase 77 U/L (39-117); Anion Gap 13 (12-20); Aspartate Amino Transferase 16 U/L (5-31); Bilirubin Total 0.4 mg/dL (0.0-1.0); Blood Urea Nitrogen 10 mg/dL (9-16); Calcium 9.4 mg/dL (8.4-10.2); Carbon Dioxide 23 mmol/L (22-29); Chloride 111 mmol/L (96-108); Creatinine Clr Calc Pharmacy 83.6; Estimated Glomerular Filt Rate > 60; Glucose Random 97 mg/dL (60-115); Magnesium 2.4 mg/dL (1.6-2.6); Potassium 3.8 mmol/L (3.3-5.1); Sodium 143 mmol/L (135-145); Total Protein 7.4 g/dL (6.5-8.0)
[2024-06-01 09:38] LABS: HCG Quantitative < 2 mIU/mL
[2024-06-01 09:50] VITALS: BP 118/65; PULSE 63; RESP 16; O2SAT 95
[2024-06-01 10:27] VITALS: BP 105/58; PULSE 54; RESP 16; TEMP 36.7; O2SAT 97
[2024-06-01 10:52] VITALS: BP 105/58; PULSE 54; RESP 16; TEMP 36.3; O2SAT 97
[2024-06-01 11:06] LABS: Troponin-I High Sensitivity < 2.7 ng/L (<3.5-17.0)
[2024-06-01 12:29] LABS: Lipase 37 U/L (8-78)
== END 2024-06-01 11:00 | disposition home or self-care (01) ==
PROVIDERS: Physician Assistant Medical; Emergency Provider Emergency Medicine; PCP Internal Medicine
DX: R10.13 Epigastric pain (principal); R10.2 Pelvic and perineal pain; F17.210 Nicotine dependence, cigarettes, uncomplicated
CPT/HCPCS: 36415; 71046; 80053; 81002; 83690; 83735; 84484; 84702; 85025; 93005; 99283; 99285

== ENCOUNTER 2024-06-15 11:06 | Outpatient (AMB) | payer OTHER, SELFPAY ==
--- NOTE | 2024-06-15 11:17 | A.OFFVIS_ITS ---
Vital Signs 06/15/24 11:26 Height 5 ft 6 in Weight 158 lb BMI 25.5 Intake Visit Reasons: EMB, vulva reinspection,labs results Dragsaw Operator: Dragsaw Operator Present Allergies bee pollen Allergy (Severe, Verified 06/01/24 08:08) Anaphylaxis oxycodone Allergy (Severe, Verified 06/01/24 08:08) Hives shellfish derived Allergy (Severe, Verified 06/01/24 08:08) Anaphylaxis midazolam [From VERSED] Allergy (Unknown, Verified 06/01/24 08:08) UNKNOWN Opioids - Morphine Analogues [OPIOIDS - MORPHINE ANALOGUES] Allergy (Unknown, Verified 06/01/24 08:08) HIVES Sulfa (Sulfonamide Antibiotics) Allergy (Unknown, Verified 06/01/24 08:08) Hives sulfamethoxazole [From BACTRIM] Allergy (Unknown, Verified 06/01/24 08:08) UNKNOWN trimethoprim [From BACTRIM] Allergy (Unknown, Verified 06/01/24 08:08) UNKNOWN aspirin [ASA] Allergy (Verified 06/01/24 08:08) Unknown Penicillins Adverse Reaction (Verified 06/01/24 08:08) Gastrointestinal Upset Is last menstrual period known: Yes Last menstrual period: 07/25/20 Post menopausal: No Patient : No Do you need a note to return to daycare/school/sports/work: Yes (for surgery on wednesday) HPI Comments Details: Presenting for EMB. The patient had spontaneous menstrual cycle without taking progesterone. Her vulvar irritation feeling much better on clobetasol and is no longer using it. [facility] Medical History History of abnormal cervical Papanicolaou smear Family history of breast cancer Cyst of right breast Ovarian cyst Pelvic pain in female Abnormal Pap smear of cervix Breast pain Hot flashes Smoking PCOS (polycystic ovarian syndrome) Encounter for annual routine gynecological examination Asthma Other cyst of bone, right shoulder Miscarriage Cervical cancer SVT (supraventricular tachycardia) Hypotension Epilepsy Surgical History Hx of spinal surgery History of loop electrical excision procedure (LEEP) [place] teeth extracted Family History Mother Breast cancer, Onset Age: 66 Social History Alcohol intake: never Patient Tobacco Use Status: Current everyday Tobacco user Tobacco use type: Cigarette Cigarette Packs Per Day: 10 Substance Use Type: Marijuana Gender identity: Female Female Reproductive History Menstrual Age of Menarche: 12 Date of last menstrual period: 07/25/20 Total pregnancies: 2 Full term: 2 Review of Systems Const All systems reviewed & are unremarkable except as noted in HPI and below Reports as per HPI and Reports no additional complaints Card Reports as per HPI and Reports no additional complaints Resp Reports as per HPI and Reports no additional complaints GI Reports no additional complaints Reports no additional complaints Physical Exam Vital Signs: BMI result Body Mass Index 25.5 Const General: cooperative, healthy appearing and comfortable Resp Effort & Inspection: normal respiratory effort Auscultation: clear to auscultation bilaterally Percussion: percussion normal Cardio Palpation: normal PMI Rate: regular rate Rhythm: regular rhythm Heart sounds: no murmurs and no rubs Peripheral pulses: Peripheral pulses 2+ throughout GI Inspection: Yes normal to inspection Palpation (GI): Soft to palpation, nontender, no guarding, not rigid and No hepatosplenomegaly present Percussion: Yes normal to percussion Auscultation: normal bowel sounds Rectal Exam - Female: deferred General: Yes no CVA tenderness External Female Exam: normal external appearance and normal appearance of the urethra Speculum Exam - Vagina: normal appearance of the vagina, normal palpation, no lesions and no masses Speculum Exam - Cervix: normal appearance of the cervix, normal palpation, no lesions, no masses and nontender Bimanual exam- vagina & uterus: normal bimanual exam, normal palpation, uterine size normal, normal palpation, uterine shape normal, No Cervical tenderness present and non-tender Bimanual Exam- Adnexa, other: normal adnexae Back/Spine/Pelvis Back: no CVA tenderness Results AMB Test Urine AMB Test Urine Negative Last Edit by Latonya Moreau CMA on 11:32 Assessment & Plan Assessment & Plan (1) Vulvar irritation: Comment: Resolved Code(s): N90.89 - Other specified noninflammatory disorders of vulva and perineum Category: Medical Plan: Discussed with the patient the finding on pelvic exam, normal bilateral vulva with no evidence of irritation (2) Abnormal uterine bleeding (AUB): Code(s): N93.9 - Abnormal uterine and vaginal bleeding, unspecified Category: Medical Plan: Instructed the patient to have her blood work done including TSH, prolactin hCG. EMB attempted, identified cervical stenosis, the patient could not tolerate the pain. The procedure was aborted due to patient tolerance to pain. Recommended hysteroscopy D&C possible polypectomy/myomectomy as next step for endometrial sampling and rule out endometrial pathology including hyperplasia or malignancy or polyp. Discussed with the patient the procedure , all benefits and risks including but not limited to inability to complete the procedure , insufficient endometrial tissue for a complete evaluation of the endometrial cavity , bleeding, infection, possible need for blood transfusion with all its risk ( HIV,syphilis, Hepatitis, anaphylaxis shock, others..), injury to bladder, rectum, possible need for laparoscopy/laparotomy or hysterectomy. The patient verbalized understanding and signed the consent. Instructions given the patient to stay NPO after midnight the day prior to the procedure and to take only the specific medication (s) discussed the morning of the surgical procedure and to schedule a 2 week postoperative appointment Orders: Orders AMB HCG Urine Test Today Z32.02 - Encounter for test, result negative Coding Level of Care Code Est Pt Level 3 (39210) Diagnoses Vulvar irritation N90.89 Abnormal uterine bleeding (AUB) N93.9
[2024-06-15 11:26] VITALS: BMI 25.5
== END 2024-06-15 11:50 | disposition home or self-care (01) ==
LOC: HO.HWS 11:06
PROVIDERS: PCP Internal Medicine; Visit Provider Obstetrics & Gynecology
DX: N90.89 Other specified noninflammatory disorders of vulva and perineum (principal); N93.9 Abnormal uterine and vaginal bleeding, unspecified; Z32.02 Encounter for pregnancy test, result negative
CPT/HCPCS: 99213

== ENCOUNTER → 2024-06-15 11:06 | Outpatient (BNVA) | payer OTHER, SELFPAY | PROVIDERS: PCP Internal Medicine; Visit Provider Obstetrics & Gynecology | DX: N93.9 Abnormal uterine and vaginal bleeding, unspecified (principal) | CPT/HCPCS: 81025 ==

== ENCOUNTER 2024-07-07 07:14 | Day surgery (SDC) | payer OTHER, SELFPAY ==
[2024-07-04 14:32] VITALS: BMI 25.5
--- NOTE | 2024-07-05 13:15 | P.CONAN_ITS ---
Documented by User: Christine Bennett NP 07/05/24 13:16 HPI - Anesthesia Eval Consult details Narrative: 44yo F for D&C Hysteroscopy,possible myomectomy,,possible polypectomy PMFSH Active Problems Active Problems: All Active Problems Abnormal uterine bleeding (AUB) (Acute) Vulvar irritation (Acute) Amenorrhea (Acute) Vulvovaginitis due to Yudi (Acute) Microscopic hematuria (Acute) Pelvic pain (Acute) Perimenopause (Acute) Irregular menses (Acute) Dyspareunia (Acute) Asthma (Acute) Epilepsy (Acute) PCOS (polycystic ovarian syndrome) (Acute) Family history of breast cancer (Acute) Past Medical History Medical History Family history of breast cancer Cyst of right breast Ovarian cyst Pelvic pain in female Abnormal Pap smear of cervix Breast pain Hot flashes Smoking PCOS (polycystic ovarian syndrome) Asthma Other cyst of bone, right shoulder Miscarriage Cervical cancer SVT (supraventricular tachycardia) Hypotension Epilepsy Family History Family History Mother Breast cancer, Onset Age: 66 Surgical History Surgical History Hx of spinal surgery History of loop electrical excision procedure (LEEP) [place] teeth extracted Social History Social History Alcohol intake: never Patient Tobacco Use Status: Former Tobacco user Cigarette Packs Per Day: 10 e-Cigarette/Vaping Use: Former Use Have you been hit, kicked, punched, or otherwise hurt by someone within the past year? If so, by whom?: No Are you DNR?: No Advance Directives: No Advance Directives Information Provided: Yes Recently lost weight without trying: No Nutrition Risks: No Nutritional Risk Patient : No Gender identity: Female Meds Allergies Allergy/AdvReac Type Severity Reaction Status Date / Time bee pollen Allergy Severe Anaphylaxis Verified 06/01/24 08:08 oxycodone Allergy Severe Hives Verified 06/01/24 08:08 shellfish derived Allergy Severe Anaphylaxis Verified 06/01/24 08:08 Opioids - Morphine Analogues Allergy Intermediate HIVES Verified 07/04/24 14:26 [OPIOIDS - MORPHINE ANALOGUES] aspirin [ASA] Allergy Unknown Gastrointestinal Verified 07/07/24 07:41 Hemorrhage midazolam [From VERSED] Allergy Unknown Hives Verified 07/07/24 07:41 sulfamethoxazole Allergy Unknown Hives Verified 07/07/24 07:41 [From BACTRIM] trimethoprim [From BACTRIM] Allergy Unknown Rash Verified 07/07/24 07:41 Penicillins AdvReac Intermediate Unknown Verified 07/07/24 07:41 Home Medications ?Medication ?Instructions ?Recorded ?Confirmed ?Last Taken ?Type acetaminophen 650 mg 650 - 1,300 mg PO Q8H PRN Pain 02/27/21 07/04/24 Unknown History tablet,extended release epinephrine 0.3 mg/0.3 mL 0.3 mg IM ONCE PRN Anaphylaxis 02/27/21 07/04/24 Unknown History injection, auto-injector Exam Height,Weight and Vital Signs: Height 5 ft 6 in Weight 71.668 kg Assessment and Plan Assessment Anesthesia Assessment: Chart Reviewed Documented by User: Jaime Arora MD 07/07/24 09:23 [facility] Past Medical History Medical History Family history of breast cancer Cyst of right breast Ovarian cyst Pelvic pain in female Abnormal Pap smear of cervix Breast pain Hot flashes Smoking PCOS (polycystic ovarian syndrome) Asthma Other cyst of bone, right shoulder Miscarriage Cervical cancer SVT (supraventricular tachycardia) Hypotension Epilepsy Family History Family History Mother Breast cancer, Onset Age: 66 Family history of problems with anesthesia: No Surgical History Surgical History Hx of spinal surgery History of loop electrical excision procedure (LEEP) [place] teeth extracted History of Problems with Anesthesia: No Social History Social History Alcohol intake: never Patient Tobacco Use Status: Former Tobacco user Cigarette Packs Per Day: 10 e-Cigarette/Vaping Use: Former Use Have you been hit, kicked, punched, or otherwise hurt by someone within the past year? If so, by whom?: No Are you DNR?: No Advance Directives: No Advance Directives Information Provided: Yes Recently lost weight without trying: No Nutrition Risks: No Nutritional Risk Patient : No Gender identity: Female Meds Allergies Allergy/AdvReac Type Severity Reaction Status Date / Time bee pollen Allergy Severe Anaphylaxis Verified 06/01/24 08:08 oxycodone Allergy Severe Hives Verified 06/01/24 08:08 shellfish derived Allergy Severe Anaphylaxis Verified 06/01/24 08:08 Opioids - Morphine Analogues Allergy Intermediate HIVES Verified 07/04/24 14:26 [OPIOIDS - MORPHINE ANALOGUES] aspirin [ASA] Allergy Unknown Gastrointestinal Verified 07/07/24 07:41 Hemorrhage midazolam [From VERSED] Allergy Unknown Hives Verified 07/07/24 07:41 sulfamethoxazole Allergy Unknown Hives Verified 07/07/24 07:41 [From BACTRIM] trimethoprim [From BACTRIM] Allergy Unknown Rash Verified 07/07/24 07:41 Penicillins AdvReac Intermediate Unknown Verified 07/07/24 07:41 Home Medications ?Medication ?Instructions ?Recorded ?Confirmed ?Last Taken ?Type acetaminophen 650 mg 650 - 1,300 mg PO Q8H PRN Pain 02/27/21 07/04/24 Unknown History tablet,extended release epinephrine 0.3 mg/0.3 mL 0.3 mg IM ONCE PRN Anaphylaxis 02/27/21 07/04/24 Unknown History injection, auto-injector Exam Airway Mallampati Class: II TM Dist: >3cm Neck ROM: Full Heart: rrr Lungs: cta Assessment and Plan Assessment Anesthesia Assessment: Anesthesia Plan Discussed Final Anesthetic Review Family History of Problems with Anesthesia: No History of Problems with Anesthesia: No NPO: Yes ASA Class: II and III Final Preanesthetic Review: No Changes in Pt Med Stat, Meds/Allgs Chart Reviewed, Consent Obtained/Reviewed and Anes Risks/Benef Reviewed Patient Risk: Intermediate Procedure Risk: Low Anesthetic Plan Anesthetic Plan: GA Disposition: Standard PACU
[2024-07-07 07:32] VITALS: BP 113/79; PULSE 67; RESP 18; TEMP 36.1; O2SAT 97; BMI 25.8
[2024-07-07 07:37] LABS: UPreg QC Valid YES; Urine Pregnancy NEGATIVE (NEGATIVE)
[2024-07-07] MEDS: Lactated Ringers 1,000 ML 100 ML IVCONT (07:47)
--- NOTE | 2024-07-07 09:03 | MHC.SHP ---
Pre-Procedural Eval Section A - 24 Hr Update-Section A only Date of Service: 07/07/24 The patient is an INPATIENT: No Changes since office visit: No Cold of Flu in the past 2 weeks, No New Medical Problems, No Changes in Medication and No Patient answered all questions The patient has been examined within 24 hours of the surgical procedure. The History & Physical has been completed within 30 days and I have reviewed it.: Yes Section B - Complete if H&P > 30 days Chief Complaint: Abnormal uterine and vaginal bleeding, Allergies: Allergies Allergy/AdvReac Type Severity Reaction Status Date / Time bee pollen Allergy Severe Anaphylaxis Verified 06/01/24 08:08 oxycodone Allergy Severe Hives Verified 06/01/24 08:08 shellfish derived Allergy Severe Anaphylaxis Verified 06/01/24 08:08 Opioids - Morphine Analogues Allergy Intermediate HIVES Verified 07/04/24 14:26 [OPIOIDS - MORPHINE ANALOGUES] aspirin [ASA] Allergy Unknown Gastrointestinal Verified 07/07/24 07:41 Hemorrhage midazolam [From VERSED] Allergy Unknown Hives Verified 07/07/24 07:41 sulfamethoxazole Allergy Unknown Hives Verified 07/07/24 07:41 [From BACTRIM] trimethoprim [From BACTRIM] Allergy Unknown Rash Verified 07/07/24 07:41 Penicillins AdvReac Intermediate Unknown Verified 07/07/24 07:41 Plan Diagnosis/Plan: Unchanged I have reviewed the history and physical and performed a pertinent physical examination on my patient. No changes have occurred unless specified. Time Spent With Patient Time: Total time managing care of this patient today ____ minutes.
--- NOTE | 2024-07-07 09:54 | PM.OP ---
Brief Operative Note Date of Service: 07/07/24 Pre-op diagnosis: Abnormal uterine bleeding Post-op diagnosis: same (Endocervical polyp) Procedure: Hysteroscopy D&C, Polypectomy Surgeon: Amari Phelps MD Anesthesia: GLMA Was an Supersonic Engineer used for this Procedure?: No Estimated blood loss (mL): 0 Pathology: other (Endometrial Scrapping. Polyp) Condition: stable Disposition: PACU
--- NOTE | 2024-07-07 09:55 | W.PM.OPN ---
Operative Note Operative Note Date of Service: 07/07/24 Narrative: Preop Diagnosis: Abnormal uterine bleeding Operation: Diagnostic Hysteroscopy, Dilataion & Curettage and polypectomy Post Op Diagnosis: Endocervical Polyp QBL: Minimal Anesthesia: GLMA Surgeon: Amari Phelps MD Scouring Machine Operator: None Complication: None Pathology: Endometrial Scrapings, endocervical polyp Procedure: The patient was put in the dorsal lithotomy position, scrubbed, and draped in the usual manner. A sterile speculum was inserted in the patient's vagina. The anterior lip of the cervix was grasped with a single tooth tenaculum. The cervix was dilated up to 5 mm, then the scope was inserted in the patient's uterus. Inspection revealed endocervical polyp. The Myosure Reach device was used; it was introduced through the operative channel and polypectomy done with no complications. The scope was then taken out from the uterine cavity, sharp curettings was carried on with minimal to moderate amount of tissues retrieved. At the end of the procedure, all instruments were taken out of the patient uterine and vaginal cavity. The single tooth tenaculum was removed and homeostasis was assured using pressure,. The patient tolerated the procedure well and was transferred to the PACU in a stable condition.
[2024-07-07 10:00] VITALS: BP 104/62; PULSE 63; RESP 12; TEMP 36.1; O2SAT 94
[2024-07-07 10:05] VITALS: BP 110/61; PULSE 67; RESP 16; O2SAT 97
[2024-07-07 10:10] VITALS: BP 113/68; PULSE 62; RESP 16; O2SAT 96
[2024-07-07 10:15] VITALS: BP 110/65; PULSE 68; RESP 18; O2SAT 100
[2024-07-07 10:30] VITALS: BP 105/70; PULSE 68; RESP 18; TEMP 36.1; O2SAT 98
== END 2024-07-07 10:56 | disposition home or self-care (01) ==
PROVIDERS: PCP Internal Medicine; Visit Provider Obstetrics & Gynecology
PROC: 0UDB8ZZ Extraction of Endometrium, Via Natural or Artificial Opening Endoscopic (ICD-10-PCS; CPT 58558; principal; 2024-07-07 09:30)
DX: N93.9 Abnormal uterine and vaginal bleeding, unspecified (principal); N84.1 Polyp of cervix uteri; Z85.41 Personal history of malignant neoplasm of cervix uteri; E28.2 Polycystic ovarian syndrome; I95.9 Hypotension, unspecified; N95.1 Menopausal and female climacteric states; R23.2 Flushing; Z80.3 Family history of malignant neoplasm of breast; G40.909 Epilepsy, unspecified, not intractable, without status epilepticus; Z88.0 Allergy status to penicillin; J45.909 Unspecified asthma, uncomplicated; Z88.2 Allergy status to sulfonamides; Z88.5 Allergy status to narcotic agent; Z88.6 Allergy status to analgesic agent; Z88.8 Allergy status to other drugs, medicaments and biological substances; F17.210 Nicotine dependence, cigarettes, uncomplicated
CPT/HCPCS: 58558; 81025; 88305; J1885; J2003; J2405; J2704; J3010

== ENCOUNTER → 2024-07-07 07:14 | Outpatient (BNV) | payer OTHER, SELFPAY | PROVIDERS: PCP Internal Medicine; Visit Provider Obstetrics & Gynecology | DX: N93.9 Abnormal uterine and vaginal bleeding, unspecified (principal); N84.0 Polyp of corpus uteri | CPT/HCPCS: 58558 ==

== ENCOUNTER 2024-07-20 07:31 | Outpatient (AMB) | payer OTHER, SELFPAY ==
--- NOTE | 2024-07-20 07:35 | A.OFFVIS_ITS ---
Vital Signs 07/20/24 07:36 Height 5 ft 6 in Weight 158 lb BMI 25.5 Intake Visit Reasons: post op Aircraft Pilot Required: No Information Interpreted: non-clinical & clinical Accompanied by: Self / Same As Patient Allergies bee pollen Allergy (Severe, Verified 07/20/24 07:37) Anaphylaxis oxycodone Allergy (Severe, Verified 07/20/24 07:37) Hives shellfish derived Allergy (Severe, Verified 07/20/24 07:37) Anaphylaxis Opioids - Morphine Analogues [OPIOIDS - MORPHINE ANALOGUES] Allergy (Intermediate, Verified 07/20/24 07:37) HIVES aspirin [ASA] Allergy (Unknown, Verified 07/20/24 07:37) Gastrointestinal Hemorrhage midazolam [From VERSED] Allergy (Unknown, Verified 07/20/24 07:37) Hives sulfamethoxazole [From BACTRIM] Allergy (Unknown, Verified 07/20/24 07:37) Hives trimethoprim [From BACTRIM] Allergy (Unknown, Verified 07/20/24 07:37) Rash Penicillins Adverse Reaction (Intermediate, Verified 07/20/24 07:37) Unknown HPI Comments Details: The patient is presenting post hysteroscopy D&C no complaints minimal vaginal bleeding no feverishness chills or abdominal pain. The pathology showed the following: A. Endometrium, curettage: Benign proliferative endometrium; no atypia or carcinoma. B. Endometrial polyp, resection: Fragments compatible with benign endometrial polyp, benign proliferative endometrium, and benign endocervical glandular mucosa; no atypia or carcinoma Last co testing in 12/18 was negative Last mammogram in 08/19 was BI-RADS [facility] [place] Medical History Family history of breast cancer Cyst of right breast Ovarian cyst Pelvic pain in female Abnormal Pap smear of cervix Breast pain Hot flashes Smoking PCOS (polycystic ovarian syndrome) Asthma Other cyst of bone, right shoulder Miscarriage Cervical cancer SVT (supraventricular tachycardia) Hypotension Epilepsy Surgical History Hx of spinal surgery History of loop electrical excision procedure (LEEP) [place] teeth extracted Family History Mother Breast cancer, Onset Age: 66 Social History Alcohol intake: never Patient Tobacco Use Status: Former Tobacco user Cigarette Packs Per Day: 10 e-Cigarette/Vaping Use: Former Use Gender identity: Female Female Reproductive History Menstrual Age of Menarche: 12 Review of Systems Const All systems reviewed & are unremarkable except as noted in HPI and below Reports as per HPI and Reports no additional complaints GI Reports no additional complaints Reports no additional complaints Assessment & Plan Assessment & Plan (1) Abnormal uterine bleeding (AUB): Comment: Endometrial polyp status post hysteroscopy polypectomy Code(s): N93.9 - Abnormal uterine and vaginal bleeding, unspecified Category: Medical Plan: Discussed with the patient the intraoperative finding, endometrial polyp and the pathology. Discussed with the patient the results of the work up done and options of treatment including but not limited to BCP's, cyclic Progesterone, Mirena IUD, endometrial ablation and hysterectomy. All pros, cons, risks and benefits of each option were discussed with the patient and the patient decided to go ahead with cyclic Prometrium, so a more detailed discussion re: Progesterone treatment including mechanism of action, benefits (regular menses, endometrial protection form unopposed estrogen and reduction in the risk of endometrial hyperplasia and/or cancer ...), risks (Thrombosis, mood changes, weight gain, breast soreness, ? increased breast ca, others). Instructions were given to use a back- up method for contraception since this is not a method control, take the medication Prometrium 200 mg p.o. 1 tablet daily starting day 15-24 and to schedule a 3 months follow-up appointment; patient verbalized understanding and agreed with the plan. Medications: New progesterone micronized (Prometrium) Take the pill 1 tablet a day cyclically every month from day 15-24 day 1 being the 1st day of next menstrual cycle 200 mg PO BEDTIME 10 days 30 caps 0RF Coding Level of Care Code Est Pt Level 3 (69198) Diagnoses Abnormal uterine bleeding (AUB) N93.9
[2024-07-20 07:36] VITALS: BMI 25.5
== END 2024-07-20 08:25 | disposition home or self-care (01) ==
PROVIDERS: PCP Internal Medicine; Visit Provider Obstetrics & Gynecology
DX: N93.9 Abnormal uterine and vaginal bleeding, unspecified (principal)
CPT/HCPCS: 99213

== ENCOUNTER → 2024-07-20 07:31 | Outpatient (BNVA) | payer OTHER, SELFPAY | PROVIDERS: PCP Internal Medicine; Visit Provider Obstetrics & Gynecology ==

== ENCOUNTER 2024-08-17 07:26 | Outpatient (REF) | payer OTHER, SELFPAY ==
--- NOTE | ~2024-08-17 | MM_ITS ---
EXAMINATION: MM SCREENING DIGITAL BREAST TOMOSYNTHESIS, BILATERAL CLINICAL INFORMATION: Screening. Asymptomatic. COMPARISON: Mammography: Comparison is made with available priors TECHNIQUE: Digital breast mammography with tomosynthesis is performed in both the craniocaudal and mediolateral oblique views along with computer-aided detection (CAD). FINDINGS: The breasts are heterogeneously dense, which may obscure small masses (ACR BI-RADS breast composition Category c). Bilateral scattered asymmetries are stable. There are no significant masses, abnormal calcifications, or other abnormalities. MM/MM tomosynthesis screening BI IMPRESSION: No mammographic evidence of malignancy. ASSESSMENT: BI-RADS BI-RADS 2 - Benign Findings RECOMMENDATION: Routine annual mammography screening. 1 year F/U This examination should not preclude the clinical evaluation of a suspicious palpable abnormality. This patient's information was entered into a reminder system with a target due date for their next mammogram. Electronically signed by: Amy Loza DO 08/28/2024 09:11 AM [facility]
== END 2024-08-17 07:27 | disposition home or self-care (01) ==
LOC: HO.MAMMO 07:26
PROVIDERS: PCP Internal Medicine; Visit Provider Internal Medicine
DX: Z12.31 Encounter for screening mammogram for malignant neoplasm of breast (principal)
CPT/HCPCS: 77063; 77067

== ENCOUNTER → 2024-08-17 07:45 | Outpatient (BNV) | payer OTHER, SELFPAY | PROVIDERS: PCP Internal Medicine; Visit Provider Internal Medicine | DX: Z12.31 Encounter for screening mammogram for malignant neoplasm of breast (principal) | CPT/HCPCS: 77063; 77067 ==

== ENCOUNTER 2024-11-01 | Emergency (ER) | payer SELFPAY ==
--- NOTE | ~2024-11-01 | XR_ITS ---
CLINICAL HISTORY: flu One view of the chest. Comparison: CR/CT/SR - XR CHEST 2V - 06/01/24 09:54 EDT Findings: Cardiac and mediastinal contours are normal. Mild interstitial prominence with scattered peribronchial thickening. No focal consolidation. No effusion. No pneumothorax. No acute osseous finding. Impression: Very mild interstitial prominence. No focal consolidation to suggest pneumonia. This document has been electronically signed by: Mendoza Fowler MD on 11/01/2024 00:43:14
[2024-11-01 00:09] VITALS: BP 108/71; PULSE 85; RESP 18; TEMP 37; O2SAT 99; BMI 29.2
--- OUTSIDE RECORDS SUMMARY | 2024-11-01 00:50 | XMS_ITS | Data Portability ---
Author Organization [facility], [address] Address [address] [place] [address] Assessment No assessment recorded. Plan of Treatment Reminders Order Date Submit Date Provider Last Modified By Organization Details Last Modified Time Details Appointments None recorded. Lab rubella Ab, titer, serum 2022 023 [email or web address] 26 [facility]), [address] [place], [address], 3 07:49:13 measles igg Ab, titer, serum 2022 023 [email or web address] 26 [facility]), [address] [place], [address], 3 07:49:14 rubella igg Ab, titer, serum 2022 023 [email or web address] 26 [facility]), [address] [place], [address], 3 07:49:14 varicella zoster virus IgG Ab, QN, IA, serum 2022 023 [email or web address] 26 [facility]), [address] [place], [address], 3 07:49:14 Referral None recorded. Procedures None recorded. Surgeries None recorded. Imaging None recorded. Medication Orders None recorded. Patient TargetsNo targets recorded. Patient Instructions Encounter Date Encounter Id Patient Instructions Last Modified By Organization Details Last Modified Time 12/28/2022 [id number] This physical does not replace the annual physical to be performed by your PCP. There may be additional screening tests that they will perform that we do not in the urgent care setting. Failure to follow up as recommended may result in significant adverse health consequences. ? If your symptoms worsen or you develop new symptoms that concern you, go to the emergency department for further evaluation. [email or web address] Not available 12/28/2022 14:06:16 Reason for Referral None Reported. Procedures Surgical History Date Name Laterality Status Provider Name and Address Organization Details Recorded Time 12/30/19 23 OC - Venipuncture Template completed Italia Robbie PA - [facility] 12/29/2022 13:18:40 12/29/19 23 OC-UDS Send Out Template NON DOT completed KAI REBOLLEDO PA - [facility] 12/28/2022 13:47:37 12/29/19 23 OC - Venipuncture Template completed KAI REBOLLEDO PA - [facility] 12/28/2022 13:48:48 12/29/19 23 OC- Physical completed KAI REBOLLEDO PA - [facility] 12/28/2022 13:45:45 Imaging Results None recorded. Procedure Notes None recorded. Medical Equipment None Reported. Vitals None Recorded Social History None recorded. Functional Status None recorded. Mental Status None recorded. Family History Nothing Reported. Medical History No medical history recorded. Gynecological HistoryNo gynecological history recorded. Obstetrics History GPAL:G 0 P 0 0 0 0 Immunizations Vaccine Type Date Status Note Provider Nam e and Address Organization Details Recorded Time Tdap 12/29/2022 completed Salma Nino MD [address] [place], [place] [address] [place] [address] - [facility] 12/29/2022 20:19:52 Past Encounters Encounter ID Performer Location Encounter Start Date Encounter Closed Date Diagnosis/Indication Diagnosis SNOMED-CT Code Diagnosis ICD10 Code Diagnosis Note [id number] Murtaza Cabezas NP [address] [facility] [address] [place] [address] 12/28/2022 10:37:35 12/28/2022 14:18:42 History and physical examination, occupation 073521101 Z02.1 Antibody measurement 352 7003 Z01.84 History an d physical examination, pre-employment 118997590 Z02.1 [id number] Salma Nino MD [address] [address] 12/29/2022 12:12:01 12/29/2022 14:06:05 History and physical examination, occupation [id number] Z02.1 Health Concerns Section Related Observation LastModified by Organization Detai ls LastModified Time None Recorded Concern Status LastModified by Organization Details LastModified Time None Recorded Advance Directives Directive None Recorded Payers Encounter Date Sequence Insurance Name Policy Number Policy Babb Covered Member ID Babb Member ID Guarantor Name 12/28/2022 OC-ESCREEN Georgie Valencia [id number] Georgie Valencia 12/29/2022 OC-ESCREEN Georgie Vlaencia [id number] Georgie Valencia Notes Date Note Type Note Provider Name a nd Address Organization Details Recorded Time 12/28/2022 text/html physical Murtaza ANGELITA Cabezas [address] [place], [address], PA - [facility] 12/28/2022 14:08:04 OBGyn Episode No OBEpisode recorded.
--- OUTSIDE RECORDS SUMMARY | 2024-11-01 00:51 | XMS_ITS | Clinical Summary ---
Author Organization [facility] Address [address] [place] [address] Care Team Providers Care House Wirer Helper Name Role Phone Zac Noriega MD Primary Care Provider Allergies Active Allergy Reactions Criticality Noted Date Comments Aspirin Anaphylaxis,Hives High 01/08/2022 Sulfamethoxazole-Trimethoprim Hives 2021 Other Anaphylaxis,Hives High 01/08/2022 Opiates Penicillins Anaphylaxis,Hives High 01/08/2022 Shellfish Anaphylaxis,Hives High 01/08/2022 Sulfa Antibiotics Anaphylaxis,Hives High 01/08/2022 Midazolam Anaphylaxis,Hives High 01/08/2022 Medications Medication Sig Dispensed Refills Start Date End Date Status acetaminophen (TYLENOL) [address] 1 suppository (650 mg total) rectally every 4 (four) hours as needed for fever. 0 Active Active Problems Problem Noted Date Diagnosed Date Dyspnea on exertion 04/29/2023 Palpitations 04/29/2023 Vasovagal attack 04/29/2023 PSVT (paroxysmal supraventricular tachycardia) 0 04/29/2023 Family History Medical History Relation Name Comments Atrial fibrillation Father Hypertension Father Atrial fibrillation Mother Breast cancer Mother Heart block Mother Pacemaker Hypertension Mother Aortic aneurysm Paternal Uncle Sudden jeremy th due to Aneurysm rupture Relation Name Status Comments Father Mother Paternal Uncle Alive Social History Tobacco Use Types Packs/Day Years Used Date Smoking Tobacco: Former Smokeless Tobacco: Never Tobacco Cessation:Counseling Given: Not Answered Comments:Occasionally Smoke 1-2 cig per day Alcohol Use Standard Drinks/Week Comments Not Currently 0 (1 standard drink = 0.6 oz pur e alcohol) Sex and Gender Information Value Date Recorded Sex Assigned at Not on file Gender Identity Not on file Sexual Orientation Not on file Job Start Date Occupation Industry Not on file Not on file Not on file Last Filed Vital Signs Vital Sign Reading Time Taken Comments Blood Pressure 100/68 04/29/2023 3:33 PM EDT Pulse 75 04/29/2023 3:33 PM EDT Temperature 36.6 ??C (97.9 ??F) 01/08/2022 9:17 AM ED T Respiratory Rate - - Oxygen Saturation 99% 04/29/2023 3:33 PM EDT Inhaled Oxygen Concentration - - Weight 68 kg (150 lb) 01/08/2022 9:17 AM EDT Height 160 cm (5' 3 ) 04/29/2023 3:33 PM EDT Body Mass Index 26.57 01/08/2022 9:17 AM EDT Plan of Treatment Health Maintenance Due Date Last Done Comments Hepatitis B Vaccines (1 of 3 - 3-dose series) 1980 Hepatitis C Screening 1980 COVID-19 Vaccine (#1) 1980 Depression Screening 1992 BMI Counseling 1998 Preventative Health Evaluation 1998 DTap / Tdap / Td (1 - Tdap) 1999 Cervical Cancer Screening (P ap Smear) 2001 Influenza Vaccine (#1) 2024 Pneumococcal Vaccine Aged Out No long er eligible based on patient's age to complete this topic RSV Ped < 20 months Aged Out No longe r eligible based on patient's age to complete this topic Care Teams House Wirer Helper Relationship Specialty Start Date End Date Zac Noriega MD [address] [place] [address] [address] [place] [address] PCP - General Lithographic Etcher 10/30/21
--- OUTSIDE RECORDS SUMMARY | 2024-11-01 00:51 | XMS_ITS | Clinical Summary ---
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 Name Role Phone Zac Noriega MD Primary Care Provider [phone] Surgical History Surgery Date Site/Laterality Comments OTHER SURGICAL HISTORY PROCEDURE:C4-5 dissectomy and fusion OTHER SURGICAL HISTORY Right PROCEDURE:Shoulder (Right) cyst removal CERVICAL BIOPSY PROCEDURE:CERVICAL CONE BIOPSY WISDOM TOOTH EXTRACTION PROCEDURE:WISDOM TOOTH EXTRACTION ROOT CANAL PROCEDURE:ROOT CANAL Medical History Medical History Date Comments PSVT (paroxysmal supraventri cular tachycardia) (CMS/HCC) DX:PSVT (paroxysmal supraven tricular tachycardia) (HCC) Absence seizure (CMS/HCC) DX:Abs ence seizure (HCC) Cervical cancer (CMS/HCC) DX:Cer vical cancer (HCC) Vasovagal syncope DX:Vasovagal s yncope Abnormal tilt table test DX:Abno rmal tilt table test;COMMENT:Positive Osteoarthritis DX:Osteoarthriti s Pedal edema DX:Pedal edema ADD (attention deficit disorder) DX:ADD (attention deficit disorder) Family History Medical History Relation Name Comments Atrial fibrillation Father Hypertension Father Aortic aneurysm Father's Brother Sudden d eath due to Aneurysm rupture Atrial fibrillation Mother Breast cancer Mother Heart block Mother Pacemaker Hypertension Mother Relation Name Status Comments Father Father's Brother Alive Mother Social History Tobacco Use Types Packs/Day Years Used Date Smoking Tobacco: Former Smokeless Tobacco: Never Alcohol Use Standard Drinks/Week Comments Not Currently 0 (1 standard drink = 0.6 oz pur e alcohol) Sex and Gender Information Value Date Recorded Sex Assigned at Not on file Gender Identity Not on file Sexual Orientation Not on file Obstetrics History Last Filed Vital Signs Vital Sign Reading Time Taken Comments Blood Pressure 100/68 04/29/2023 3:33 PM EDT Pulse 75 04/29/2023 3:33 PM EDT Temperature - - Respiratory Rate - - Oxygen Saturation - - Inhaled Oxygen Concentration - - Weight 68 kg (150 lb) 01/08/2022 9:17 AM EDT Height 160 cm (5' 3 ) 04/29/2023 3:33 PM EDT Body Mass Index 26.57 01/08/2022 9:17 AM EDT Plan of Treatment Health Maintenance Due Date Last Done Comments Breast Cancer Screening 1980 COVID-19 Vaccine (#1) 1985 Pneumococcal Vaccine: Pediatrics (0 to 5 Years) and At-Risk Patients (6 to 64 Years) (1 of 2 - PCV) 1986 Hepatitis B Vaccines (1 of 3 - 19+ 3-dose series) 1999 Depression Screening 10/12/2019 HIV Screening 10/12/2019 Hepatitis C Screening 10/12/2019 Social Influencers of Health Screening 10/12/2019 DTaP,Tdap,and Td Vaccines (2 - Td or Tdap) 10/04/2022 10/04/2012 Cervical Cancer Screening: P ap Smear 11/22/2022 11/22/2019, 12/04/2016, 05/29/2015 Influenza Vaccine (#1) 2024 HIB Vaccines Aged Out No longer eligi ble based on patient's age to complete this topic HPV Vaccines Aged Out No longer eligi ble based on patient's age to complete this topic Hepatitis A Vaccines Aged Out No long er eligible based on patient's age to complete this topic IPV Vaccines Aged Out No longer eligi ble based on patient's age to complete this topic MMR Vaccines Aged Out No longer eligi ble based on patient's age to complete this topic Meningococcal ACWY Vaccine Aged Out N o longer eligible based on patient's age to complete this topic RSV Immunization Patients Under 20 months Aged Out No longer eligible b ased on patient's age to complete this topic Varicella Vaccines Aged Out No longer eligible based on patient's age to complete this topic Procedures Procedure Name Priority Date/Time Associated Diagnosis Comments PAP SMEAR Routine 11/22/2019 1:31 PM EST from Last 3 Months or Most Recently Relevant to Health Maintenance Results * Pap smear (11/22/2019 1:31 PM EST) Clinical Information Z12.4 LMP: 10/07/19 HX: EMILIANA 2/3 (2013) PERFORM HPV/DNA TESTING REGARDLESS OF DIAGNOSIS HISTORICAL TESTING LAB RESULTING AGENCY Cytologic Final Diagnosis Negative for intraepithelial lesion or malignancy. Yeast and pseudohyphae present consistent with Yudi species. Satisfactory for evaluation. Endocervical/trans formation zone component present. Specimen to be sent for HPV as per clinician's request. Specimen screened at ??[facility] [address] [place] [address] HISTORICAL TESTING LAB RESULTING AGENCY Signed Signed by Sindhu Woods ON 11/29/2019 14:09 HISTORICAL TESTING LAB RESULTING AGENCY Comment SOURCE: CERVICAL ONLY HISTORICAL TESTING LAB RESULTING AGENCY 11/22/2019 1:31 PM EST Jose Pearce MD LAB CYTOLOGY ORDERA BLES HISTORICAL TESTING LAB RESULTING AGENCY from Last 3 Months or Most Recently Relevant to Health Maintenance Care Teams Bunch Breaker Machine Operator Relationship Specialty Start Date End Date Zac Noriega MD [address] [place] [address] Dr Parish MA PCP - General Behavioral Health Consultant 10/30/21
[2024-11-01 01:32] LABS: Influenza A PCR NEGATIVE (Negative); Influenza B PCR NEGATIVE (Negative); Resp Syncy Virus RNA Qual PCR NEGATIVE (Negative); SARS COV2 PCR INHOUSE NEGATIVE (Negative)
--- NOTE | 2024-11-01 02:05 | MHC.EDTECH ---
patient refuses blood draw again at this time, saying the results of her swabs and scan are more important to her
[2024-11-01 02:47] LABS: MANUAL DIFF FLAG NO
[2024-11-01 02:48] LABS: Basophils Percent Auto 0.2 % (0-2); Eosinophils Percent Auto 0.2 % (0-4); Hemoglobin 15.5 g/dl (12.0-16.0); Imm Gran Abs Auto 0.04 X10*3/uL (0.00-0.03); Imm Gran Pct Auto 0.6 % (0.0-0.4); Lymphocytes Absolute Auto 0.9 X10*3/uL (1.2-4.9); Mean Corpuscular HGB Conc 35.2 g/dl (31.0-35.0); Mean Corpuscular Hemoglobin 30.5 pg (27.0-33.0); Mean Corpuscular Volume 86.6 fL (80.0-98.0); Mean Platelet Volume 8.1 fL (9.4-12.3); Monocytes Absolute Auto 0.6 X10*3/uL (0.1-1.2); Monocytes Percent Auto 8.7 % (2-11); Neutrophils Absolute Auto 4.9 x10*3/uL (2.0-8.3); Neutrophils Percent Auto 76.3 % (45-73); Platelet Count 184 X10*3/uL (160-400); Red Blood Count 5.08 X10*6/uL (4.20-5.50); Red Cell Distribution Width 12.1 % (11.0-16.0); White Blood Count 6.4 X10*3/uL (4.8-10.8)
[2024-11-01 03:15] LABS: Alanine Aminotransferase 10 U/L (0-31); Albumin Level 4.1 g/dL (3.5-5.0); Alkaline Phosphatase 63 U/L (39-117); Anion Gap 15 (12-20); Aspartate Amino Transferase 24 U/L (5-31); Bilirubin Direct 0.3 mg/dL (0.0-0.5); Bilirubin Total 0.7 mg/dL (0.0-1.0); Blood Urea Nitrogen 11 mg/dL (9-16); Calcium 9.1 mg/dL (8.4-10.2); Carbon Dioxide 19 mmol/L (22-29); Chloride 109 mmol/L (96-108); Creatinine Clr Calc Pharmacy 91.5; Estimated Glomerular Filt Rate > 60; Glucose Random 112 mg/dL (60-115); Potassium 3.5 mmol/L (3.3-5.1); Sodium 139 mmol/L (135-145); Total Protein 7.7 g/dL (6.5-8.0)
[2024-11-01 04:00] VITALS: BP 104/52; PULSE 72; RESP 20; TEMP 36.4; O2SAT 98
--- NOTE | 2024-11-01 06:06 | ED_ITS ---
HPI - General Adult General Chief complaint: General Medical Stated complaint: n/v Time Seen by Provider: 11/01/24 05:51 Source: patient Mode of arrival: ambulatory Limitations: no limitations History of Present Illness ED Provider: Dr. Darlene Reinoso HPI narrative: Patient comes to the emergency room complaining of nausea vomiting body aches. According to the patient, family at home had norovirus. Patient states that she has not had any diarrhea. Patient had several episodes of vomiting, last episode over 24 hours ago. Patient has occasional abdominal cramping, no significant abdominal pain at this time, denies hematuria or dysuria. Related Data Home Medications ?Medication ?Instructions ?Recorded ?Confirmed acetaminophen 650 mg 650 - 1,300 mg PO Q8H PRN Pain 02/27/21 07/04/24 tablet,extended release epinephrine 0.3 mg/0.3 mL 0.3 mg IM ONCE PRN Anaphylaxis 02/27/21 07/04/24 injection, auto-injector Previous Rx's ?Medication ?Instructions ?Recorded ibuprofen 600 mg tablet 600 mg PO Q6H PRN fever or pain 11/12/23 #30 tabs terconazole 0.8 % vaginal cream 1 appful vaginal BEDTIME 3 days 04/20/24 #20 grams clobetasol 0.05 % topical cream 1 appl topical BID 5 days #45 grams 06/01/24 progesterone micronized 200 mg 200 mg PO BEDTIME 10 days #30 caps 07/20/24 capsule (Prometrium) ondansetron 4 mg disintegrating 4 mg PO Q6H PRN nausea and 11/01/24 tablet vomiting #14 tabs Allergies Allergy/AdvReac Type Severity Reaction Status Date / Time bee pollen Allergy Severe Anaphylaxis Verified 11/01/24 00:15 oxycodone Allergy Severe Hives Verified 11/01/24 00:15 shellfish derived Allergy Severe Anaphylaxis Verified 11/01/24 00:15 Opioids - Morphine Analogues Allergy Intermediate HIVES Verified 11/01/24 00:15 [OPIOIDS - MORPHINE ANALOGUES] aspirin [ASA] Allergy Unknown Gastrointestinal Verified 11/01/24 00:15 Hemorrhage midazolam [From VERSED] Allergy Unknown Hives Verified 11/01/24 00:15 sulfamethoxazole Allergy Unknown Hives Verified 11/01/24 00:15 [From BACTRIM] trimethoprim [From BACTRIM] Allergy Unknown Rash Verified 11/01/24 00:15 Penicillins AdvReac Intermediate Unknown Verified 11/01/24 00:15 Review of Systems 2 Review of Systems: Constitutional : No Weight loss, No Fever, No Chills, No Night Sweats, No Fatigue, No Malaise ENT/Mouth : No Hearing loss, No Ear Pain, No Nasal Congestion, No Sinus Pain, No Hoarseness, No sore throat, No Rhinorrhea, No Swallowing Difficulty Eyes: No Eye Pain, No Swelling, No Redness, No Foreign Body, No Discharge, No Vision Changes Cardiovascular : No Chest Pain, No SOB, No Dyspnea on Exertion, No Orthopnea, No Edema, No Palpitations Respiratory : No Cough, No Sputum, No Wheezing, No Smoke Exposure, No Dyspnea Gastrointestinal : Complaining of nausea and vomiting No Diarrhea, No Constipation, complaining of abdominal cramping intermittently,, No Hematochezia, No Melena Genitourinary : no irregular bleeding, No Dysuria, No Urinary Frequency, No Hematuria, No Urinary Incontinence, No Urgency, No Flank Pain, No Urinary Flow Changes, No Hesitancy Musculoskeletal : No joint pain, No Myalgias, No Joint Swelling Skin : No Skin Lesions, No rash Neuro : No Weakness, No Numbness, No Paresthesias, No Loss of Consciousness, No Dizziness, No Headache Psych : No Anxiety/Panic, No Depression, No SI/HI/AH/VH, No Social Issues, Heme/Lymph: No Bruising, No Bleeding,No Lymphadenopathy Endocrine : No Polyuria, No Polydipsia, No Temperature Intolerance PMFSH Past Medical History Medical History Family history of breast cancer Cyst of right breast Ovarian cyst Pelvic pain in female Abnormal Pap smear of cervix Breast pain Hot flashes Smoking PCOS (polycystic ovarian syndrome) Asthma Other cyst of bone, right shoulder Miscarriage Cervical cancer SVT (supraventricular tachycardia) Hypotension Epilepsy Surgical History Hx of spinal surgery History of loop electrical excision procedure (LEEP) [place] teeth extracted Family History Family History Mother Breast cancer, Onset Age: 66 Social History Social History Alcohol intake: never Patient Tobacco Use Status: Former Tobacco user Cigarette Packs Per Day: 10 e-Cigarette/Vaping Use: Former Use Advance Directives: No Advance Directives Information Provided: Yes Do you have a plan to hurt others: No Plan Gender identity: Female Physical Exam ED Vital Signs: Vital Signs - 24 hr 11/01/24 00:09 11/01/24 04:00 Temperature 98.6 F 97.6 F Pulse Rate 85 72 Respiratory Rate 18 20 Blood Pressure 108/71 104/52 L Pulse Oximetry 99 98 Oxygen Delivery Method Room Air Room Air BMI result Body Mass Index 29.2 Const Other: Appearance: Alert. Oriented X3. No acute distress. Eyes: Pupils equal, round and reactive to light. ENT: Pharynx normal. Neck: Normal inspection. Neck supple. No lymph nodes noted. No crepitus CVS: Normal heart rate and rhythm. Pulses normal. Normal S1 and S2 Respiratory: No respiratory distress. Breath sounds normal. No Wheezing. No rales Abdomen: Soft and nontender. No rigidity. No distention. Skin: Skin warm and dry. Flushed skin color. Normal skin turgor. Extremities: No lower extremity edema. No Lacerations. No Rash Neuro: Oriented X 3. No motor deficit. No sensory deficit. Moving all extremities. No slurred speech. CN 2 through 12 grossly intact Psych: calm, cooperative, normal affect Medical Decision Making Medical Decision Making [facility] Narrative: My interpretation of labs: Patient's white blood cell count within normal limits, no significant abnormality in patient's hematology, no significant abnormality in patient's chemistry other than slightly decreased bicarb Chest x-ray does not show any acute abnormality Patient offered IV hydration and IV Zofran. Patient states that she would prefer to have sublingual Zofran and she will drink plenty of fluids at home. Differential Diagnosis Differential Diagnoses: The differential diagnosis associated with the presentation includes (Norovirus, gastroenteritis, gastritis, viral syndrome) Lab Data [facility] Lab Attestation statement: I reviewed the patient's lab results. 11/01/24 02:43 11/01/24 02:43 Labs: Lab Results 11/01/24 11/01/24 Range/Units 00:48 02:43 WBC 6.4 (4.8-10.8) X10*3/uL RBC 5.08 (4.20-5.50) X10*6/uL Hgb 15.5 (12.0-16.0) g/dl Hct 44.0 (37.0-47.0) % MCV 86.6 (80.0-98.0) fL MCH 30.5 (27.0-33.0) pg MCHC 35.2 H (31.0-35.0) g/dl RDW 12.1 (11.0-16.0) % Plt Count 184 (160-400) X10*3/uL MPV 8.1 L (9.4-12.3) fL Immature Gran % (Auto) 0.6 H (0.0-0.4) % Neut % (Auto) 76.3 H (45-73) % Lymph % (Auto) 14.0 L (20-40) % Menard % (Auto) 8.7 (2-11) % Eos % (Auto) 0.2 (0-4) % Baso % (Auto) 0.2 (0-2) % Lymph # (Auto) 0.9 L (1.2-4.9) X10*3/uL Menard # (Auto) 0.6 (0.1-1.2) X10*3/uL Eos # (Auto) 0.0 (0.0-0.4) X10*3/uL Baso # (Auto) 0.0 (0.0-0.2) X10*3/uL Abs Immat Gran (auto) 0.04 H (0.00-0.03) X10*3/uL Absolute Neuts (auto) 4.9 (2.0-8.3) x10*3/uL Absolute Nucleated RBC 0.000 (0.0-0.012) X10*3/uL Nucleated RBC % (auto) 0.0 (0.0-0.2) /100WBC Sodium 139 (135-145) mmol/L Potassium 3.5 (3.3-5.1) mmol/L Chloride 109 H (96-108) mmol/L Carbon Dioxide 19 L (22-29) mmol/L Anion Gap 15 (12-20) BUN 11 (9-16) mg/dL Creatinine 0.76 (0.5-1.4) mg/dL Estim Creat Clear Calc 91.5 Estimated GFR > 60 Random Glucose 112 (60-115) mg/dL Calcium 9.1 (8.4-10.2) mg/dL Total Bilirubin 0.7 (0.0-1.0) mg/dL Direct Bilirubin 0.3 (0.0-0.5) mg/dL AST 24 (5-31) U/L ALT 10 (0-31) U/L Alkaline Phosphatase 63 (39-117) U/L Total Protein 7.7 (6.5-8.0) g/dL Albumin 4.1 (3.5-5.0) g/dL Influenza Type A (PCR) NEGATIVE (Negative) Influenza Type B (PCR) NEGATIVE (Negative) RSV RNA Qual (PCR) NEGATIVE (Negative) SARS-CoV-2 RNA (RT-PCR) NEGATIVE (Negative) Independent Interpretation I performed an independent interpretation of an: Plain X-Ray Radiology Impression Discussion of test interpretation with radiology: I have reviewed the radiologist's reading. Radiologist Impression: Cardiac and mediastinal contours are normal. Mild interstitial prominence with scattered peribronchial thickening. No focal consolidation. No effusion. No pneumothorax. No acute osseous finding. Impression: Very mild interstitial prominence. No focal consolidation to suggest pneumonia. Discharge Plan Discharge Clinical Impression: Nausea & vomiting, Abdominal cramping Patient Disposition: Home, Self-Care Instructions: Acute Nausea and Vomiting (ED), Abdominal Pain (ED) Additional Instructions: Please follow-up with your primary care physician tomorrow. If you have any worsening or new symptoms, please return to the emergency room or call 911 Prescriptions: New ondansetron 4 mg tablet,disintegrating 4 mg PO Q6H PRN (Reason: nausea and vomiting) Qty: 14 0RF No Action ibuprofen 600 mg tablet 600 mg PO Q6H PRN (Reason: fever or pain) Qty: 30 0RF acetaminophen 650 mg tablet extended release 650 - 1,300 mg PO Q8H PRN (Reason: Pain) epinephrine 0.3 mg/0.3 mL auto-injector 0.3 mg IM ONCE PRN (Reason: Anaphylaxis) terconazole 0.8 % cream 1 appful vaginal BEDTIME 3 Days Qty: 20 0RF progesterone micronized [Prometrium] 200 mg capsule 200 mg PO BEDTIME 10 Days Qty: 30 0RF Rx Instructions: Take the pill 1 tablet a day cyclically every month from day 15-24 day 1 being the 1st day of next menstrual cycle clobetasol 0.05 % cream 1 appl topical BID 5 Days Qty: 45 0RF Stand Alone Forms: Work/School Release Print Language: Kittitian
[2024-11-01 06:21] VITALS: BP 104/70; PULSE 79; RESP 16; TEMP 36.8; O2SAT 95
[2024-11-01 06:27] LABS: HCG Quantitative < 2 mIU/mL
[2024-11-01] MEDS: Ondansetron ODT 4 MG TAB.RAPDIS TRANSLINGU (06:41)
[2024-11-01 06:43] VITALS: BP 104/70; PULSE 79; RESP 16; TEMP 36.8; O2SAT 95
== END 2024-11-01 06:44 | disposition home or self-care (01) ==
PROVIDERS: Emergency Provider Emergency Medicine
DX: R10.9 Unspecified abdominal pain (principal); R11.2 Nausea with vomiting, unspecified; Z03.818 Encounter for observation for suspected exposure to other biological agents ruled out
CPT/HCPCS: 0241U; 36415; 71045; 80048; 80076; 84702; 85025; 99283

== ENCOUNTER → 2024-11-01 00:20 | Outpatient (BNV) | payer OTHER, SELFPAY | PROVIDERS: Visit Provider Radiology Vascular & Interventional Radiology | DX: R11.2 Nausea with vomiting, unspecified (principal) | CPT/HCPCS: 71045 ==

== ENCOUNTER 2025-02-23 07:28 | Outpatient (AMB) | payer OTHER, SELFPAY ==
--- NOTE | 2025-02-23 07:28 | A.OFFVIS_ITS ---
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 Required: No Information Interpreted: non-clinical & clinical [employer] Patrol: [employer] Present (Latonya Moreau XUAN) Accompanied by: Self / Same As Patient Allergies bee pollen Allergy (Severe, Verified 02/23/25 07:34) Anaphylaxis oxycodone Allergy (Severe, Verified 02/23/25 07:34) Hives shellfish derived Allergy (Severe, Verified 02/23/25 07:34) Anaphylaxis Opioids - Morphine Analogues [OPIOIDS - MORPHINE ANALOGUES] Allergy (Intermediate, Verified 02/23/25 07:34) HIVES aspirin [ASA] Allergy (Unknown, Verified 02/23/25 07:34) Gastrointestinal Hemorrhage midazolam [From VERSED] Allergy (Unknown, Verified 02/23/25 07:34) Hives sulfamethoxazole [From BACTRIM] Allergy (Unknown, Verified 02/23/25 07:34) Hives trimethoprim [From BACTRIM] Allergy (Unknown, Verified 02/23/25 07:34) Rash Penicillins Adverse Reaction (Intermediate, Verified 02/23/25 07:34) Unknown HPI Comments Details: Presenting for annual exam. No complaints. Last Pap/HPV was negative in 12/19 Last Mammogram was BI-RADS 2 in 08/20 No previous screening colonoscopy PFSH Medical History Family history of breast cancer Cyst of right breast Ovarian cyst Pelvic pain in female Abnormal Pap smear of cervix Breast pain Hot flashes Smoking PCOS (polycystic ovarian syndrome) Asthma Other cyst of bone, right shoulder Miscarriage Cervical cancer SVT (supraventricular tachycardia) Hypotension Epilepsy Surgical History Hx of spinal surgery History of loop electrical excision procedure (LEEP) [place] teeth extracted Family History Mother Breast cancer, Onset Age: 66 Social History Alcohol intake: never Patient Tobacco Use Status: Former Tobacco user Cigarette Packs Per Day: 10 e-Cigarette/Vaping Use: Former Use Gender identity: Female Female Reproductive History Menstrual Age of Menarche: 12 Date of last pap smear: 11/30/23 Date of Mammogram: 08/17/24 Review of Systems Const All systems reviewed & are unremarkable except as noted in HPI and below Card Reports as per HPI Resp Reports as per HPI GI Reports as per HPI and Reports no additional complaints Reports as per HPI Physical Exam Const General: cooperative, healthy appearing and comfortable Chest Chest palpation & inspection: normal inspection of the chest and normal palpation of entire chest wall Breast/axilla inspection: normal inspection of the breasts and normal inspection of the axillae Breast/axilla palpation: palpation of the breasts abnormal (L lump breast @7, 6 cm fromnipple @ 10, 7 cm from nipple. R brst retroareol), normal palpation of the axillae and no axillary lymphadenopathy Resp Effort & Inspection: normal respiratory effort Auscultation: clear to auscultation bilaterally Percussion: percussion normal Cardio Palpation: normal PMI Rate: regular rate Rhythm: regular rhythm Heart sounds: no murmurs and no rubs Peripheral pulses: Peripheral pulses 2+ throughout GI Inspection: Yes normal to inspection Palpation (GI): Soft to palpation, nontender, no guarding, not rigid and No hepatosplenomegaly present Percussion: Yes normal to percussion Auscultation: normal bowel sounds Rectal Exam - Female: deferred General: Yes bladder normal to palpation External Female Exam: No lesion Speculum Exam - Vagina: normal appearance of the vagina, normal palpation, normal vaginal discharge and not erythematous Speculum Exam - Cervix: normal appearance of the cervix and normal palpation Bimanual exam- vagina & uterus: normal bimanual exam, normal palpation, uterine size normal, bladder normal to palpation, consistency normal and normal palpation Bimanual Exam- Adnexa, other: normal adnexae, no masses and no tenderness Assessment & Plan Assessment & Plan (1) Well woman exam: Code(s): Z01.419 - Encounter for gynecological examination (general) (routine) without a bnormal findings Category: Medical Plan: Cotesting not indicated this year. Instructions given the patient to schedule next screening Mammogram in 08/21. Counseled the patient about the recommended dietary allowance of 1000 mg of Calcium & 600 IU of vitamin D. The patient was refer to GI for screening colonoscopy The patient was instructed to perform monthly self-breast exams and to schedule an annual exam in a year; All questions answered and the patient verbalized understanding. Instructed the patient to schedule annual exam in a year (2) Bilateral breast lump: Comment: Left lump breast @7 o' clock, 6 cm from the nipple @ 10o'clock, 7 cm from the nipple Right breast retroareolar lump Code(s): N63.10 - Unspecified lump in the right breast, unspecified quadrant; N63.20 - Unspecified lump in the left breast, unspecified quadrant Category: Medical Plan: Discussed with the patient the finding on bilateral Breast exam (breast lumps) .The differential diagnosis includes but not limited to lump/cyst/pre cancer/cancer or dense breast tissue. The work up includes breast US and diag nostic mammogram and referred the patient for surgical breast consult. Orders: Orders MM tomosynthesis diagnostic BI Today N63.10 - Unspecified lump in the right breast, unspecified quadrant, N63.20 - Unspecified lump in the left breast, unspecified quadrant US breast RT limited Today N63.10 - Unspecified lump in the right breast, unspecified quadrant, N63.20 - Unspecified lump in the left breast, unspecified quadrant US breast LT limited Today N63.10 - Unspecified lump in the right breast, unspecified quadrant, N63.20 - Unspecified lump in the left breast, unspecified quadrant Referrals Gastroenterology Referral Z12.11 - Encounter for screening for malignant neoplasm of colon Coding Level of Care Code Est Pt Level 3 (50145) Est Pt Prev Care 40-64y(13042) Diagnoses Well woman exam Z01.419 Bilateral breast lump N63.10; N63.20
--- OUTSIDE RECORDS SUMMARY | 2025-02-23 07:29 | XMS_ITS | Data Portability ---
Author Organization [facility], [address] Address [address] [place] [address] Assessment No assessment recorded. Plan of Treatment Reminders Order Date Submit Date Provider Last Modified By Organization Details Last Modified Time Details Appointments None recorded. Lab rubella Ab, titer, serum 2022 023 [email or web address] 26 [facility]), [address] [place], [address], 3 07:49:13 measles igg Ab, titer, serum 2022 023 [email or web address] 26 [facility]), [address] [place], [address], 3 07:49:14 rubella igg Ab, titer, serum 2022 023 [email or web address] 26 [facility]), [address] [place], [address], 3 07:49:14 varicella zoster virus IgG Ab, QN, IA, serum 2022 023 [email or web address] 26 [facility]), [address] [place], [address], 3 07:49:14 Referral None recorded. Procedures None recorded. Surgeries None recorded. Imaging None recorded. Medication Orders None recorded. Patient TargetsNo targets recorded. Patient Instructions Encounter Date Encounter Id Patient Instructions Last Modified By Organization Details Last Modified Time 12/28/2022 [id number] This physical does not replace the annual [...] Time Tdap 12/29/2022 completed Salma Nino MD [address] [place], [place] [address], [address] [place] [facility] 12/29/2022 20:19:52 Past Encounters Encounter ID Performer Location Encounter Start Date Encounter Closed Date Diagnosis/Indication Diagnosis SNOMED-CT Code Diagnosis ICD10 Code Diagnosis Note [id number] Murtaza Cabezas [place] [address] [facility] [address] [place] [address] 12/28/2022 10:37:35 12/28/2022 14:18:42 History and physical examination, occupation [id number] Z02.1 Antibody measurement 352 7003 Z01.84 History an d physical examination, pre-employment [id number] Z02.1 [id number] Salma Nino MD [address] [address] 12/29/2022 12:12:01 12/29/2022 14:06:05 History and physical examination, occupation [id number] Z02.1 Health Concerns Section Related Observation LastModified by Organization Detai ls LastModified Time None Recorded Concern Status LastModified by Organization Details LastModified Time None Recorded Advance Directives Directive None Recorded Payers Insurance Date Sequence Insurance Name Policy Number Policy Babb Covered Member ID Babb Member ID Guarantor Name 12/29/2022 OC-ESCREEN Georgie Valencia [id number] Georgie Valencia 12/28/2022 OC-ESCREEN Georgie Valencia [id number] Georgie Valencia Notes Date Note Type Note Provider Name a nd Address Organization Details Recorded Time 12/28/2022 text/html physical Murtaza ANGELITA Cabezas [address] [place], [address], [place] - [facility] 12/28/2022 14:08:04 OBGyn Episode No OBEpisode recorded.
[2025-02-23 07:33] VITALS: BP 120/74; BMI 29.2
== END 2025-02-23 08:01 | disposition home or self-care (01) ==
LOC: HO.HWS 07:28
PROVIDERS: Visit Provider Obstetrics & Gynecology
DX: Z01.411 Encounter for gynecological examination (general) (routine) with abnormal findings (principal); N63.10 Unspecified lump in the right breast, unspecified quadrant; N63.20 Unspecified lump in the left breast, unspecified quadrant
CPT/HCPCS: 99213; 99396; 99459

== ENCOUNTER → 2025-02-23 07:28 | Outpatient (BNVA) | payer OTHER, SELFPAY | PROVIDERS: Visit Provider Obstetrics & Gynecology ==

== ENCOUNTER 2025-02-28 15:39 | Outpatient (AMB) | payer OTHER, SELFPAY ==
--- OUTSIDE RECORDS SUMMARY | 2025-02-28 15:46 | XMS_ITS | Data Portability ---
Author Organization SAROJ Fernandes s, [address] Address [address] [place] [address] Assessment No assessment recorded. Plan of Treatment Reminders Order Date Submit Date Provider Last Modified By Organization Details Last Modified Time Details Appointments None recorded. Lab rubella Ab, titer, serum 2022 023 [email or web address] 26 [facility]), [address] [place], [address], 3 07:49:13 measles igg Ab, titer, serum 2022 023 [email or web address] 26 [facility]), [address] [place], [address], 3 07:49:14 rubella igg Ab, titer, serum 2022 023 [email or web address] 26 [facility]), [address] [place], [address], 3 07:49:14 varicella zoster virus IgG Ab, QN, IA, serum 2022 023 [email or web address] 26 [facility]), [address] [place], [address], 3 07:49:14 Referral None recorded. Procedures None recorded. Surgeries None recorded. Imaging None recorded. Medication Orders None recorded. Patient TargetsNo targets recorded. Patient Instructions Encounter Date Encounter Id Patient Instructions Last Modified By Organization Details Last Modified Time 12/28/2022 [id number] This physical does not replace the annual [...] Time Tdap 12/29/2022 completed Salma Nino MD [address] [place], [place] [address] [place], [address] [place] - [facility] 12/29/2022 20:19:52 Past Encounters Encounter ID Performer Location Encounter Start Date Encounter Closed Date Diagnosis/Indication Diagnosis SNOMED-CT Code Diagnosis ICD10 Code Diagnosis Note [id number] [place]abe[place] [address] [facility] [address] [place] [address] 12/28/2022 10:37:35 12/28/2022 14:18:42 History and physical examination, occupation 124767165 Z02.1 Antibody measurement 352 7003 Z01.84 History an d physical examination, pre-employment 523238609 Z02.1 [id number] Salma Nino MD [address] [address] 12/29/2022 12:12:01 12/29/2022 14:06:05 History and physical examination, occupation [id number] Z02.1 Health Concerns Section Related Observation LastModified by Organization Detai ls LastModified Time None Recorded Concern Status LastModified by Organization Details LastModified Time None Recorded Advance Directives Directive None Recorded Payers Insurance Date Sequence Insurance Name Policy Number Policy Babb Covered Member ID Babb Member ID Guarantor Name 12/29/2022 OC-ESCREEN Georgie Valencia [id number] Georgie Valencia 12/28/2022 OC-ESCREEN Georgie Valencia [id number] Georgie Valencia Notes Date Note Type Note Provider Name a nd Address Organization Details Recorded Time 12/28/2022 text/html physical Murtaza ANGELITA Cabezas [address] [place], [address], [place] - [facility] 12/28/2022 14:08:04 OBGyn Episode No OBEpisode recorded.
--- NOTE | 2025-02-28 15:50 | A.OFFPC_ITS ---
Vital Signs 02/28/25 16:02 Height 5 ft 3 in Weight 74.843 kg BMI 29.2 BP 108/80 Respiration 16 Pulse 65 Pulse Source Pulse Oximeter Temp 97.3 F Temp Source Temporal Artery Scan Pulse Oximetry (%) 98 Oxygen Delivery Method Room Air Intake Visit Reasons: Routine Main Galley Scullion Required: No Accompanied by: Self / Same As Patient Allergies bee pollen Allergy (Severe, Verified 02/28/25 16:00) Anaphylaxis oxycodone Allergy (Severe, Verified 02/28/25 16:00) Hives shellfish derived Allergy (Severe, Verified 02/28/25 16:00) Anaphylaxis Opioids - Morphine Analogues [OPIOIDS - MORPHINE ANALOGUES] Allergy (Intermediate, Verified 02/28/25 16:00) HIVES aspirin [ASA] Allergy (Unknown, Verified 02/28/25 16:00) Gastrointestinal Hemorrhage midazolam [From VERSED] Allergy (Unknown, Verified 02/28/25 16:00) Hives sulfamethoxazole [From BACTRIM] Allergy (Unknown, Verified 02/28/25 16:00) Hives trimethoprim [From BACTRIM] Allergy (Unknown, Verified 02/28/25 16:00) Rash Penicillins Adverse Reaction (Intermediate, Verified 02/28/25 16:00) Unknown Medication List - Last Reconciled 02/28/25 by SAROJ Clemons acetaminophen ER 650 - 1,300 mg PO Q8H PRN epinephrine 0.3 mg IM ONCE PRN ibuprofen 600 mg PO Q6H PRN ketoconazole 2% 1 appl topical DAILY mupirocin 2% 1 appl topical BID PRN HPI HPI Comments History of Present Illness Details 44-year-old female with history of epile psy, asthma, polyarthralgia, fibrocystic breast disease, and SVT presents to the office today for management of chronic conditions and to establish care. Epilepsy- last seizure 2019. Has been on antiepileptic medication until 2019 when she was trying to get and never resumed. She does not currently have a neurologist. Asthma-mild intermittent, no recent exacerbation. Only occasional albuterol use Fibrocystic breast disease-does have family history of breast cancer. Following closely for mammograms and ultrasounds. Following with Gynecology SVT-historically has had short runs up to 10 beats. However, has been having increased frequency of lightheadedness, palpitations and occasional shortness of breath. 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 Repeat EKG showed resolution. She states she does drink plenty of water but lightheadedness persists. Describes this as a wooziness, no room spinning dizziness. This is not positional. Polyarthralgia- hx positive ALONDRA, no dx RA. Following with Dr. Jacques in rheum She is also reporting of polyuria and clear urine. No dysuria hematuria, incontinence. Does have upcoming appointment with Urology She is also requesting evaluation of the left armpit where she has a rash that is itchy. She also has pustular lesions that come and go around her body. ROS: Negative except for that mentioned in HPI EXAM: Constitutional - Awake and Alert, No apparent distress Eyes - PERRLA, EOMI Cardiovascular - S1S2, RRR, No edema Respiratory - Normal lung expansion, Normal respiratory effort, No respiratory d istress, CTA bilaterally Extremities - no calf tenderness bilaterally, no swelling Skin - Warm/Dry. Patchy faintly erythematous rash with scaling L axilla Neurological - Alert & oriented x3 Psychological - Appropriate affect [facility] Medical History (Updated 02/28/25 @ 16:21 by SAROJ Clemons) Family history of breast cancer Cyst of right breast Ovarian cyst Pelvic pain in female Abnormal Pap smear of cervix Breast pain Hot flashes Smoking PCOS (polycystic ovarian syndrome) Asthma Other cyst of bone, right shoulder Miscarriage Cervical cancer SVT (supraventricular tachycardia) Hypotension Epilepsy Surgical History Hx of spinal surgery History of loop electrical excision procedure (LEEP) [place] teeth extracted Family History Mother Breast cancer, Onset Age: 66 Social History Alcohol intake: never Patient Tobacco Use Status: Former Tobacco user Cigarette Packs Per Day: 10 e-Cigarette/Vaping Use: Former Use Gender identity: Female Female Reproductive History Menstrual Age of Menarche: 12 Questionnaire PHQ-9 Over the last 2 weeks, how often have you been bothered by any of the following problems? 1. Little interest or pleasure in doing things: not at all 2. Feeling down, depressed, or hopeless: not at all 3. Trouble falling or staying asleep, or sleeping too much: more than half the days 4. Feeling tired or having little energy: more than half the days 5. Poor appetite or overeating: not at all 6. Feeling bad about yourself - or that you are a failure or have let yourself or your family down: not at all 7. Trouble concentrating on things, such as reading the newspaper or watching television: more than half the days 8. Moving or speaking so slowly that other people could have noticed. Or the opposite - being so fidgety or restless that you have been moving around a lot more than usual: not at all 9. Thoughts that you would be better off or of hurting yourself in some way: not at all Total score: 6 Source: Developed by Drs. Lane Steele, Jayla Castano, Kleber Martínez and colleagues, with an educational lora from [employer]. Thrive Questionnaire Date Thrive assessed: 02/28/25 I am a: Patient What is your living situation today?: I have a steady place to live Within the past 12 months, did the food you bought not last and you didn't have the money to get more?: Never true Within the past 12 months, did you worry whether your food would run out before you got money to buy more?: Never true Do you have trouble paying for medicines?: No Do you have trouble getting transportation to medical appointments?: No Do you have trouble paying your heating and electricity bill?: No Do you have trouble taking care of your child, family member or friend?: No Do you have trouble with day-to-day activities such as bathing, preparing meals, shopping, managing finances, etc.?: No Are you currently unemployed and looking for a job?: No Are you interested in more education?: No Please select the resources that you would like help with: None THRIVE Score: 0 RAQUEL-7 AMB Questionnaire RAQUEL-7 Date RAQUEL - 7 assessed: 02/28/25 Feeling nervous, anxious, or on edge: 1 = Several days Not being able to stop or control worryin = Several days Worrying too much about different things: 1 = Several days Trouble relaxin = More than half the days Being so restless that it is hard to sit still: 2 = More than half the days Becoming easily annoyed or irritable: 0 = Not at all Feeling afraid as if something awful might happen: 0 = Not at all Total RAQUEL-7 score (0-4 normal; 5-9 mild; 10-14 moderate; 15-21 severe): 7 Source: Developed by Drs. Lane Steele, Jayla Castano, Kleber Martínez and colleagues, with an educational lora from [employer]. Physical exam (Primary Care) Vital Signs: Last Vital Signs Temp 97.3 F 02/28/25 16:02 Pulse 65 02/28/25 16:02 Resp 16 02/28/25 16:02 BP 108/80 02/28/25 16:02 Pulse Ox 98 02/28/25 16:02 Oxygen Delivery Method Room Air 02/28/25 16:02 BMI result Body Mass Index 29.2 Tobacco/Smoking Status: Tobacco use Status Patient Tobacco Use Status Former Tobacco user 02/28/25 15:50 Tobacco use type 02/27/25 15:27 e-Cigarette/Vaping Use Former Use 02/28/25 15:50 PHQ-9: PHQ-9 Score PHQ-9: Total score 6 02/28/25 16:37 Thrive Assessment: Date of Thrive Assessment Date Thrive assessed 02/28/25 02/28/25 16:34 Office Procedures EKG Details: NSR, early repol. No dysrhythmia or acute ischemic changes. Unchanged from prior EKGs 62733-Lmsafvmlkaqwswwxs, Complete Coding Level of Care Code New Pt Level 4 (75324) Complex EM visit Add On G2211 Diagnoses Epilepsy G40.909 Asthma J45.909 SVT (supraventricular tachycardia) I47.1 Bilateral breast lump N63.10; N63.20 Polyuria R35.89 Pustular lesion L08.9 CPT Codes EKG - CPT: 60436-Hrmyrpxduccvupnso, Complete ([id number]) Assessment & Plan Assessment & Plan (1) Epilepsy: Code(s): G40.909 - Epilepsy, unspecified, not intractable, without status epilepticus Category: Medical Plan: Referred to neurology (2) Asthma: Code(s): J45.909 - Unspecified asthma, uncomplicated Category: Medical Plan: Controlled. Albuterol p.r.n. (3) SVT (supraventricular tachycardia): Code(s): I47.1 - Supraventricular tachycardia Category: Medical Plan: EKG in office shows normal sinus rhythm, no dysrhythmia, rate controlled. Holter monitor ordered as well as echocardiogram. She is advised of signs and symptoms to present to the ED. (4) Bilateral breast lump: Comment: Left lump breast @7 o' clock, 6 cm from the nipple @ 10o'clock, 7 cm from the nipple Right breast retroareolar lump Code(s): N63.10 - Unspecified lump in the right breast, unspecified quadrant; N63.20 - Unspecified lump in the left breast, unspecified quadrant Category: Medical Plan: Continue following with Gynecology. Continue with scheduled mammograms and ultrasounds (5) Polyuria: Code(s): R35.89 - Other polyuria Category: Medical Plan: Hemoglobin A1c ordered as well as electrolyte panel. Follow-up with urology as scheduled. Will also check UA/UC (6) Pustular lesion: Code(s): L08.9 - Local infection of the skin and subcutaneous tissue, unspecified Category: Medical Plan: Concern for possible MRSA. Mupirocin ordered. MRSA nasal swab ordered. If no relief, referred to Dermatology Plan Labs ordered as below. Holter monitor and echocardiogram ordered. Referred to neurology. Follow-up for annual physical Orders: Orders Basic Metabolic Panel Today I47.1 - Supraventricular tachycardia, N63.10 - Unspecified lump in the right breast, unspecified quadrant, N63.20 - Unspecified lump in the left breast, unspecified quadrant ECG 3 day holter monitor Today I47.1 - Supraventricular tachycardia Hemoglobin A1c Today R35.89 - Other polyuria AMB EKG-In Office Today I47.1 - Supraventricular tachycardia Lipid Panel Today I47.1 - Supraventricular tachycardia, N63.10 - Unspecified lump in the right breast, unspecified quadrant, N63.20 - Unspecified lump in the left breast, unspecified quadrant Magnesium Today I47.1 - Supraventricular tachycardia, N63.10 - Unspecified lump in the right breast, unspecified quadrant, N63.20 - Unspecified lump in the left breast, unspecified quadrant CA echo transthoracic complete Today I47.1 - Supraventricular tachycardia UA CC w/rflx Micro + Cult Today R35.1 - Nocturia MRSA Nasal Screen Today L08.9 - Local infection of the skin and subcutaneous tissue, unspecified Referrals Neurology Referral G40.909 - Epilepsy, unspecified, not intractable, without status epilepticus Medications: New ketoconazole 2% 1 appl topical DAILY 30 grams 0RF mupirocin 2% 1 appl topical BID PRN 22 grams 0RF pustular lesions
[2025-02-28 16:02] VITALS: BP 108/80; PULSE 65; RESP 16; TEMP 36.3; O2SAT 98; BMI 29.2
== END 2025-02-28 16:44 | disposition home or self-care (01) ==
LOC: HO.HMCHD 15:40
PROVIDERS: Visit Provider Physician Assistant
DX: G40.909 Epilepsy, unspecified, not intractable, without status epilepticus (principal); J45.909 Unspecified asthma, uncomplicated; I47.10 Supraventricular tachycardia, unspecified; N63.10 Unspecified lump in the right breast, unspecified quadrant; N63.20 Unspecified lump in the left breast, unspecified quadrant; R35.89 Other polyuria; L08.9 Local infection of the skin and subcutaneous tissue, unspecified

== ENCOUNTER → 2025-02-28 15:39 | Outpatient (BNVA) | payer OTHER, SELFPAY | PROVIDERS: Visit Provider Physician Assistant | DX: G40.909 Epilepsy, unspecified, not intractable, without status epilepticus (principal); I47.10 Supraventricular tachycardia, unspecified; J45.20 Mild intermittent asthma, uncomplicated; N63.24 Unspecified lump in the left breast, lower inner quadrant; N63.41 Unspecified lump in right breast, subareolar; R76.0 Raised antibody titer; R21 Rash and other nonspecific skin eruption; L08.9 Local infection of the skin and subcutaneous tissue, unspecified; R35.89 Other polyuria; Z80.3 Family history of malignant neoplasm of breast; Z13.30 Encounter for screening examination for mental health and behavioral disorders, unspecified; Z13.31 Encounter for screening for depression | CPT/HCPCS: 93005; 96127 ==

== ENCOUNTER 2025-03-20 07:24 | Outpatient (AMB) | payer OTHER, SELFPAY ==
[2025-03-20 07:29] VITALS: BP 90/62; BMI 29.2
--- NOTE | 2025-03-20 07:29 | A.OFFVIS_ITS ---
Vital Signs 03/20/25 07:29 Height 5 ft 3 in Weight 165 lb BMI 29.2 BP 90/62 Intake Visit Reasons: Hot flashes Gravity Prospecting Operator Required: No Information Interpreted: non-clinical & clinical Accompanied by: Self / Same As Patient Allergies bee pollen Allergy (Severe, Verified 03/20/25 07:32) Anaphylaxis oxycodone Allergy (Severe, Verified 03/20/25 07:32) Hives shellfish derived Allergy (Severe, Verified 03/20/25 07:32) Anaphylaxis Opioids - Morphine Analogues (OPIOIDS - MORPHINE ANALOGUES) Allergy (Intermediate, Verified 03/20/25 07:32) HIVES aspirin (ASA) Allergy (Unknown, Verified 03/20/25 07:32) Gastrointestinal Hemorrhage midazolam (From VERSED) Allergy (Unknown, Verified 03/20/25 07:32) Hives sulfamethoxazole (From BACTRIM) Allergy (Unknown, Verified 03/20/25 07:32) Hives trimethoprim (From BACTRIM) Allergy (Unknown, Verified 03/20/25 07:32) Rash Penicillins Adverse Reaction (Intermediate, Verified 03/20/25 07:32) Unknown HPI Comments Details: Presenting complaining of hot flashes over the last few weeks . The patient had an axillary infection on antibiotics over the last few weeks it has not improved yet. No new medications. Menstrual cycles are regular no other menopausal symptoms PFSH Medical History Hot flashes Family history of breast cancer Cyst of right breast Ovarian cyst Pelvic pain in female Abnormal Pap smear of cervix Breast pain Smoking PCOS (polycystic ovarian syndrome) Asthma Other cyst of bone, right shoulder Miscarriage Cervical cancer SVT (supraventricular tachycardia) Hypotension Epilepsy Surgical History Hx of spinal surgery History of loop electrical excision procedure (LEEP) [place] teeth extracted Family History Mother Breast cancer, Onset Age: 66 Social History Alcohol intake: never Patient Tobacco Use Status: Former Tobacco user Cigarette Packs Per Day: 10 e-Cigarette/Vaping Use: Former Use Gender identity: Female Female Reproductive History Menstrual Age of Menarche: 12 Review of Systems Const All systems reviewed & are unremarkable except as noted in HPI and below Reports as per HPI and Reports no additional complaints GI Reports no additional complaints Reports no additional complaints Physical Exam Vital Signs: Last Vital Signs BP 90/62 03/20/25 07:29 BMI result Body Mass Index 29.2 Assessment & Plan Assessment & Plan (1) Hot flashes: Code(s): R23.2 - [place] Category: Medical Plan: Discussed with the patient different cause of hot flashes including infectious process thyroid disorders, menopausal than others. Will order FSH/LH and TSH and follow-up in 2 weeks , if the axillary infection is improved and hot flashes persist or abnormal FSH/LH or TSH will attempt a trial of SSRI for hot flashes treatment. Instructions given the patient to schedule a follow-up appointment within 2 weeks. All questions answered, the patient verbalized understanding Orders: Orders Lutenizing Hormone Today R23.2 - [place] Follicle Stimulating Hormone Today R23.2 - [place] TSH reflex Free T4 Today R23.2 - [place] Coding Level of Care Code Est Pt Level 3 (68121) Diagnoses Hot flashes R23.2
== END 2025-03-20 08:09 | disposition home or self-care (01) ==
LOC: HO.HWS 07:24
PROVIDERS: Visit Provider Obstetrics & Gynecology
DX: R23.2 Flushing (principal)
CPT/HCPCS: 99213

== ENCOUNTER 2025-03-20 07:24 | Outpatient (REF) | payer OTHER, SELFPAY ==
--- OUTSIDE RECORDS SUMMARY | 2025-03-20 07:55 | XMS_ITS | Data Portability ---
Author Organization SAROJ CerratoNetPlenishchelsea s, [address] Address [address] [place] [address] Assessment No assessment recorded. Plan of Treatment Reminders Order Date Submit Date Provider Last Modified By Organization Details Last Modified Time Details Appointments None recorded. Lab rubella Ab, titer, serum 2022 023 [email or web address] 26 [facility], [address] [place], [address], 3 07:49:13 measles igg Ab, titer, serum 2022 023 [email or web address] 26 [facility], [address] [place], [address], 3 07:49:14 rubella igg Ab, titer, serum 2022 023 [email or web address] 26 [facility]), [address] [place], [address], 3 07:49:14 varicella zoster virus IgG Ab, QN, IA, serum 2022 023 [email or web address] 26 [facility]), [address] [place], [address], 3 07:49:14 Referral None recorded. Procedures None recorded. Surgeries None recorded. Imaging None recorded. Medication Orders None recorded. Patient TargetsNo targets recorded. Patient Instructions Encounter Date Encounter Id Patient Instructions Last Modified By Organization Details Last Modified Time 12/28/2022 [id number] This physical does not replace the annual physical to be performed by your PCP. There may be additional screening tests that they will perform that we do not in the urgent care setting. Failure to follow up as recommended may result in significant adverse health consequences. If your symptoms worsen or you develop new symptoms that concern you, go to the emergency department for further evaluation. [email or web address] Not available 12/28/2022 14:06:16 Reason for Referral None Reported. Procedures Surgical History Date Name Laterality Status Provider Name and Address Organization Details Recorded Time 12/30/19 23 OC - Venipuncture Template completed Italia Garciaharish [place] - [facility] 12/29/2022 13:18:40 12/29/19 [...] Time Tdap 12/29/2022 completed Salma Nino MD [address] [place] [address] [place], [address] [place] - [facility] 12/29/2022 20:19:52 Past Encounters Encounter ID Performer Location Encounter Start Date Encounter Closed Date Diagnosis/Indication Diagnosis SNOMED-CT Code Diagnosis ICD10 Code Diagnosis Note [id number] Murtaza [place]abezas [place] [address] [address] 12/28/2022 10:37:35 12/28/2022 14:18:42 History and physical examination, occupation 494253583 Z02.1 Antibody measurement 352 7003 Z01.84 History an d physical examination, pre-employment 620977133 Z02.1 [id number] Salma Nino MD [address] [address] 12/29/2022 12:12:01 12/29/2022 14:06:05 History and physical examination, occupation 033015551 Z02.1 Health Concerns Section Related Observation LastModified by Organization Detai ls LastModified Time None Recorded Concern Status LastModified by Organization Details LastModified Time None Recorded Advance Directives Directive None Recorded Payers Insurance Date Sequence Insurance Name Policy Number Policy Babb Covered Member ID Babb Member ID Guarantor Name 12/29/2022 OC-ESCREEN Georgie Valencia [id number] Georgie Valencia 12/28/2022 OC-ESCREEN Georgie Valencia [id number] Georgie Valencia Notes Date Note Type Note Provider Name a nd Address Organization Details Recorded Time 12/28/2022 text/html physical Murtaza ANGELITA Cabezas [address] [place], [address], [place] - [facility] 12/28/2022 14:08:04 OBGyn Episode No OBEpisode recorded.
[2025-03-20 08:34] LABS: Estimated Average Glucose 111 mg/dL; Hemoglobin A1c % 5.5 % (<6.0)
[2025-03-20 08:50] LABS: Appearance Urine Cloudy; Color Urine Yellow; Glucose Urine UA Negative (Negative); Leukocyte Esterase Urine Large (3+) (Negative); Nitrite Urine Negative (Negative); Specific Gravity - Urine 1.025 (1.005-1.025); UMIC TRIGGER UACC YES; Urine Blood Negative (Negative); Urine Ketones Negative (Negative); Urine Protein Negative (Neg-Trace)
[2025-03-20 09:03] LABS: Bacteria Urine 3+ (None Seen); Hyaline Casts Urine 0-2 /LPF (0-2); RBC Urine 0-2 /HPF (0-2); UACC Culture Trigger YES
[2025-03-20 09:04] LABS: Anion Gap 10 (12-20); Blood Urea Nitrogen 11 mg/dL (9-16); Calcium 9.3 mg/dL (8.4-10.2); Carbon Dioxide 27 mmol/L (22-29); Chloride 109 mmol/L (96-108); Cholesterol 185 mg/dL (<200); Estimated Glomerular Filt Rate > 60; Glucose Random 102 mg/dL (60-115); HDL Cholesterol 46 mg/dL (>40); LDL Cholesterol Calculated 119 mg/dL (<100); Magnesium 2.1 mg/dL (1.6-2.6); Sodium 142 mmol/L (135-145); Triglycerides 103 mg/dL (<150)
[2025-03-20 09:20] LABS: TSH reflex Free T4 1.83 uIU/mL (0.32-4.0)
[2025-03-21 06:29] LABS: Follicle Stimulating Hormone 69.9 mIU/mL; Lutenizing Hormone 49.1 mIU/mL
== END 2025-03-20 07:25 | disposition home or self-care (01) ==
LOC: HO.LAB 07:24
PROVIDERS: Absent Provider Physician Assistant; PCP Physician Assistant; Visit Provider Obstetrics & Gynecology
DX: R23.2 Flushing (principal); N63.10 Unspecified lump in the right breast, unspecified quadrant; N63.20 Unspecified lump in the left breast, unspecified quadrant; I47.10 Supraventricular tachycardia, unspecified; R35.89 Other polyuria; N91.2 Amenorrhea, unspecified
CPT/HCPCS: 36415; 80048; 80061; 81001; 83001; 83002; 83036; 83735; 84443; 87086

== ENCOUNTER 2025-04-03 16:03 | Outpatient (AMB) | payer OTHER, SELFPAY ==
--- NOTE | 2025-04-03 16:03 | MHC.OFFVIS ---
Intake Visit Reasons: TV follow up Allergies bee pollen Allergy (Severe, Verified 03/20/25 07:32) Anaphylaxis oxycodone Allergy (Severe, Verified 03/20/25 07:32) Hives shellfish derived Allergy (Severe, Verified 03/20/25 07:32) Anaphylaxis Opioids - Morphine Analogues (OPIOIDS - MORPHINE ANALOGUES) Allergy (Intermediate, Verified 03/20/25 07:32) HIVES aspirin (ASA) Allergy (Unknown, Verified 03/20/25 07:32) Gastrointestinal Hemorrhage midazolam (From VERSED) Allergy (Unknown, Verified 03/20/25 07:32) Hives sulfamethoxazole (From BACTRIM) Allergy (Unknown, Verified 03/20/25 07:32) Hives trimethoprim (From BACTRIM) Allergy (Unknown, Verified 03/20/25 07:32) Rash Penicillins Adverse Reaction (Intermediate, Verified 03/20/25 07:32) Unknown HPI Comments Details: The patient scheduled a telehealth visit for follow-up. FSH/LH 69.9/49.1, TSH within normal. Still complaining of hot flash PFSH Medical History (Updated 04/03/25 @ 16:35 by Amari Phelps MD) Hot flashes Family history of breast cancer Cyst of right breast Ovarian cyst Pelvic pain in female Abnormal Pap smear of cervix Breast pain Smoking PCOS (polycystic ovarian syndrome) Asthma Other cyst of bone, right shoulder Miscarriage Cervical cancer SVT (supraventricular tachycardia) Hypotension Epilepsy Surgical History Hx of spinal surgery History of loop electrical excision procedure (LEEP) [place] teeth extracted Family History Mother Breast cancer, Onset Age: 66 Social History Alcohol intake: never Patient Tobacco Use Status: Former Tobacco user Cigarette Packs Per Day: 10 e-Cigarette/Vaping Use: Former Use Gender identity: Female Female Reproductive History Menstrual Age of Menarche: 12 Review of Systems Const All systems reviewed & are unremarkable except as noted in HPI and below Reports as per HPI and Reports no additional complaints GI Reports no additional complaints Reports no additional complaints Telehealth Telehealth Telehealth Platform: Telephone Location of provider rendering services: practice address Location of patient: address on file Patient Identification confirmed using: Name, : Yes Telehealth method: video Patient verbally consented to treatment: Yes Patient verbally consented to billing insurance company: Yes Patient informed of any privacy concerns related to visit: Yes Minutes spent on Phone/Video with Pt.: 3 Assessment & Plan Assessment & Plan (1) Hot flashes: Comment: Elevated FSH/LH Code(s): R23.2 - [place] Category: Medical Plan: Discussed with the patient the options of treatment of hot flashes including hormonal replacement therapy, all the pros, cons, risks and benefits (benefits= prevention of hot flashes, atrophic vaginitis, osteoporosis, decrease colon ca risk; also discussed with the patient the risks of ID, Breast ca, DVT, PE, Strokes). In addition, discussed with the patient non hormonal treatment options for hot flashes treatment in surgical menopausal patient. Options discussed with the patient include the following: SSRI/SNRIs , difficulty has been demonstrated in multiple trials clinical response is more rapid (days) than typical response to SSRI for depression (weeks), they are equally effective in natural versus surgical menopause, they have similar modest benefit for hot flashes; Citalopram 20 mg per day is another 1st choice option. If it does not recall will try other options Effexor at 37.5 mg per day up to 75 mg per day after the 1st week has similar efficacy for hot flashes relief as low-dose estradiol at 0.5 mg per day, 47% efficacy reduction hot flashes Gabapentin it 300 mg p.o. t.i.d. especially for patient was hot flashes are at night has been shown to reduce hot flashes, 41% efficacy reduction hot flashes, if 1 of the SSRI/SNRI class of drugs is ineffective or not tolerated trial of gabapentin would be reasonable Other options include the following: Clonidine patch , Oxybutynin 5-10 mg p.o. q.d. has been shown to relieve hot flashes, the most common side effects will be dry mouth in 20-30% of patients I spent a total of 20 minutes reviewing the chart, talking to the patient via video and documenting in the medical record. Medications: New citalopram 20 mg PO DAILY 90 tabs 0RF 90 days Coding Level of Care Code Est Pt Level 3 (53650) Diagnoses Hot flashes R23.2
--- OUTSIDE RECORDS SUMMARY | 2025-04-03 16:13 | XMS_ITS | Data Portability ---
Author Organization [facility], [address] Address [address] [place] [address] Assessment No assessment recorded. Plan of Treatment Reminders Order Date Submit Date Provider Last Modified By Organization Details Last Modified Time Details Appointments None recorded. Lab rubella Ab, titer, serum 2022 023 [email or web address] 26 [facility], [address] [place], [address], 3 07:49:13 measles igg Ab, titer, serum 2022 023 [email or web address] 26 [facility]), [address] [place], [address], 3 07:49:14 rubella igg Ab, titer, serum 2022 023 [email or web address] 26 [facility]), [address] [place], [address], 3 07:49:14 varicella zoster virus IgG Ab, QN, IA, serum 2022 023 [email or web address] 26 [facility]), [address] [place], [address], 3 07:49:14 Referral None recorded. Procedures None recorded. Surgeries None recorded. Imaging None recorded. Medication Orders None recorded. Patient TargetsNo targets recorded. Patient Instructions Encounter Date Encounter Id Patient Instructions Last Modified By Organization Details Last Modified Time 12/28/2022 [id number] This physical does not replace the annual [...] 13:48:48 12/29/19 23 OC- Physical completed KAI REBOLLDEO [place] - [facility] 12/28/2022 13:45:45 Imaging [...] Time Tdap 12/29/2022 completed Salma Nino MD [address] [place] [address] [place], [address] [place] - [facility] 12/29/2022 20:19:52 Past Encounters Encounter ID Performer Location Encounter Start Date Encounter Closed Date Diagnosis/Indication Diagnosis SNOMED-CT Code Diagnosis ICD10 Code Diagnosis Note [id number] [place] [address] [address] 12/28/2022 10:37:35 12/28/2022 14:18:42 History and physical examination, occupation 506634597 Z02.1 Antibody measurement 352 7003 Z01.84 History an d physical examination, pre-employment 625175375 Z02.1 [id number] Salma Nino MD [address] [address] 12/29/2022 12:12:01 12/29/2022 14:06:05 History and physical examination, occupation 326689246 Z02.1 Health Concerns Section Related Observation LastModified by Organization Detai ls LastModified Time None Recorded Concern Status LastModified by Organization Details LastModified Time None Recorded Advance Directives Directive None Recorded Payers Insurance Date Sequence Insurance Name Policy Number Policy Babb Covered Member ID Babb Member ID Guarantor Name 12/29/2022 OC-ESCREEN Georgie Valencia [id number] Georgie Valencia 12/28/2022 OC-ESCREEN Georgie Valencia [id number] Georgie Valencia Notes Date Note Type Note Provider Name a nd Address Organization Details Recorded Time 12/28/2022 text/html physical Murtaza ANGELITA Cabezas [address] [place], [address], [place] - [facility] 12/28/2022 14:08:04 OBGyn Episode No OBEpisode recorded.
--- OUTSIDE RECORDS SUMMARY | 2025-04-03 16:13 | XMS_ITS | Clinical Summary ---
Author Organization [facility] Address [address] [place] [address] Care Team Providers Care Drafting Instructor Name Role Phone Zac oNriega MD Primary Care Provider [phone] Allergies Active Allergy Reactions Criticality Noted Date [...] 75 04/29/2023 3:33 PM EDT Temperature 36.6 C (97.9 F) 01/08/2022 9:17 AM EDT Respiratory Rate - - Oxygen Saturation 99% [...] (P ap Smear) 2001 Influenza Vaccine (#1) 2025 Pneumococcal Vaccine Aged Out No long er eligible based on patient's age to complete this topic RSV Ped < 20 months Aged Out No longe r eligible based on patient's age to complete this topic Care Teams Drafting Instructor Relationship Specialty Start Date End Date Zac Noriega MD [address] [place] [address] Dr [address] [place] [address] PCP - General Switchbox Assembler 10/30/21
--- OUTSIDE RECORDS SUMMARY | 2025-04-03 16:13 | XMS_ITS | Clinical Summary ---
Author Organization [facility] Address [address] [place] [address] Care Team Providers Care Try Out Person Name Role Phone Zac Noriega MD Primary Care Provider [phone] Surgical History Surgery Date Site/Laterality Comments OTHER SURGICAL HISTORY PROCEDURE:C4-5 dissectomy and fusion OTHER SURGICAL HISTORY Right PROCEDURE:Shoulder (Right) cyst removal CERVICAL BIOPSY PROCEDURE:CERVICAL CONE BIOPSY WISDOM TOOTH EXTRACTION PROCEDURE:WISDOM TOOTH EXTRACTION ROOT CANAL PROCEDURE:ROOT CANAL Medical History Medical History Date Comments PSVT (paroxysmal supraventri cular tachycardia) (CMS/HCC V24) DX:PSVT (paroxysmal suprave ntricular tachycardia) (HCC) Absence seizure (CMS/HCC V24 , CMS/HCC V28) DX:Absence seizure (HCC) Cervical cancer (CMS/HCC V24 , CMS/HCC V28) DX:Cervical cancer (HCC) Vasovagal syncope DX:Vasovagal s yncope [...] drink = 0.6 oz pur e alcohol) Comments Unknown Sex and Gender Information Value Date Recorded Sex Assigned at Not on file Legal Sex Female 6:27 PM EDT Gender Identity Not on file Sexual Orientation [...] Cancer Screening 1980 COVID-19 Vaccine (#1) 1985 Hepatitis B Vaccines (1 of 3 - 19+ 3-dose series) 1999 Pneumococcal Vaccine: Pediatrics (0 to 5 Years) and At-Risk Patients (6 to 49 Years) (1 of 2 - PCV) 1999 Depression Screening 10/12/2019 HIV Screening 10/12/2019 Hepatitis C Screening 10/12/2019 Social Influencers of Health Screening 10/12/2019 DTaP,Tdap,and Td Vaccines (2 - Td or Tdap) 10/04/2022 10/04/2012 Cervical Cancer Screening: P ap Smear 11/22/2022 11/22/2019, 12/04/2016, 05/29/2015 Influenza Vaccine (#1) 2025 HIB Vaccines Aged Out No longer eligi [...] patient's age to complete this topic Meningococcal B Vaccine Aged Out No l onger eligible based on patient's age to complete [...] as per clinician's request. Specimen screened at [address] [address] HISTORICAL TESTING LAB RESULTING AGENCY Signed Signed by Sindhu Woods ON 11/29/2019 14:09 HISTORICAL TESTING LAB RESULTING AGENCY Comment SOURCE: CERVICAL ONLY HISTORICAL TESTING LAB RESULTING AGENCY 11/22/2019 1:31 PM EST us Jose Pearce MD LAB CYTOLOGY ORDERABLES Fin al Result HISTORICAL TESTING LAB RESULTING AGENCY from Last 3 Months or Most Recently Relevant to Health Maintenance Care Teams Try Out Person Relationship Specialty Start Date End Date Zac Noriega MD [address] [place] [address] Dr Parish [place] PCP - General General Manager Farm 10/30/21
== END 2025-04-03 16:37 | disposition home or self-care (01) ==
LOC: HO.HWS 16:03
PROVIDERS: PCP Physician Assistant; Visit Provider Obstetrics & Gynecology
DX: R23.2 Flushing (principal)
CPT/HCPCS: 99213

== ENCOUNTER 2025-04-24 07:42 | Outpatient (AMB) | payer OTHER, SELFPAY ==
--- OUTSIDE RECORDS SUMMARY | 2025-04-24 07:45 | XMS_ITS | Clinical Summary ---
Author Organization [employer] [facility] Address [address] [place] [address] Care Team Providers Care Product Managent Intern Name Role Phone Zac Noriega MD Primary Care Provider [phone] Medications fludrocortisone (FLORINEF) 0.1 mg tablet Take 1 tablet (0.1 mg total) by mouth 1 (one) time each day. 90 each 3 04/04/2025 Active Surgical History Surgery Date Site/Laterality Comments OTHER [...] Last Done Comments Breast Cancer Screening 1980 Hepatitis B Vaccines (1 of 3 - 19+ 3-dose series) 1999 Pneumococcal Vaccine: Pediatrics (0 to 5 Years) and At-Risk Patients (6 to 49 Years) (1 of 2 - PCV) 1999 Colorectal Cancer Screening: Colonoscopy 10/12/2019 HIV Screening 10/12/2019 Hepatitis C Screening 10/12/2019 Social Influencers of Health Screening 10/12/2019 DTaP,Tdap,and Td Vaccines (2 - Td or Tdap) 10/04/2022 10/04/2012 Cervical Cancer Screening: P ap Smear 11/22/2022 11/22/2019, 12/04/2016, 05/29/2015 COVID-19 Vaccine (2023-2 5 season) 2024 Depression Screening 09/27/2024 Influenza Vaccine (#1) 2025 HIB Vaccines Aged [...] * Pap smear (11/22/2019 1:31 PM EST) Pathologist [facility] Clinical Information Z12.4 LMP: 10/07/19 HX: EMILIANA 2/3 (2013) PERFORM HPV/DNA TESTING REGARDLESS OF DIAGNOSIS HISTORICAL TESTING LAB RESULTING AGENCY Cytologic Final Diagnosis Negative for intraepithelial lesion or malignancy. Yeast and pseudohyphae present consistent with Yudi species. Satisfactory for evaluation. Endocervical/trans formation zone component present. Specimen to be sent for HPV as per clinician's request. Specimen screened at [place] [address] [place] [address] HISTORICAL TESTING LAB RESULTING AGENCY Signed Signed by Sindhu Woods ON 11/29/2019 14:09 HISTORICAL TESTING LAB RESULTING AGENCY Comment SOURCE: CERVICAL ONLY HISTORICAL TESTING LAB RESULTING AGENCY 11/22/2019 1:31 PM EST Jose Pearce MD LAB CYTOLOGY ORDERABLES Fin al Result HISTORICAL TESTING LAB RESULTING AGENCY from Last 3 Months or Most Recently Relevant to Health Maintenance Care Teams Product Managent Intern Relationship Specialty Start Date End Date Zac Noriega MD [address] [place] [address] Dr Parish [place] PCP - General Media Services Director 10/30/21
--- OUTSIDE RECORDS SUMMARY | 2025-04-24 07:45 | XMS_ITS | Data Portability ---
Author Organization [facility], [address] Address [address] [place] [address] Assessment No assessment recorded. Plan of Treatment Reminders Order Date Submit Date Provider Last Modified By Organization Details Last Modified Time Details Appointments None recorded. Lab rubella Ab, titer, serum 2022 023 [email or web address] 26 [facility], [address] [place], [address], 3 07:49:13 measles igg Ab, titer, serum 2022 023 [email or web address] 26 [facility]), [address] [place], [address], 3 07:49:14 rubella igg Ab, titer, serum 2022 023 [email or web address] 26 [facility]), [address] [place], [address], 3 07:49:14 varicella zoster virus IgG Ab, QN, IA, serum 2022 023 [email or web address] 26 [facility]), [address] [place], [address], 3 07:49:14 Referral None recorded. Procedures None recorded. Surgeries None recorded. Imaging None recorded. Medication Orders None recorded. Patient TargetsNo targets recorded. Patient Instructions Encounter Date Encounter Id Patient Instructions Last Modified By Organization Details Last Modified Time 12/28/2022 [id number] This physical does not replace the annual [...] Time Tdap 12/29/2022 completed Salma Nino MD [address] [place] [address] [place], [address] PA - [facility] 12/29/2022 20:19:52 Past Encounters Encounter ID Performer Location Encounter Start Date Encounter Closed Date Diagnosis/Indication Diagnosis SNOMED-CT Code Diagnosis ICD10 Code Diagnosis Note [id number] [place]abe[place] [address] [address] 12/28/2022 10:37:35 12/28/2022 14:18:42 History and physical examination, occupation 490743560 Z02.1 Antibody measurement 352 7003 Z01.84 History an d physical examination, pre-employment 294405385 Z02.1 [id number] Salma Nino MD [address] [place] [address] 12/29/2022 12:12:01 12/29/2022 14:06:05 History and physical examination, occupation 741498258 Z02.1 Health Concerns Section Related Observation LastModified by Organization Detai ls LastModified Time None Recorded Concern Status LastModified by Organization Details LastModified Time None Recorded Advance Directives Directive None Recorded Payers Insurance Date Sequence Insurance Name Policy Number Policy Babb Covered Member ID Babb Member ID Guarantor Name 12/29/2022 OC-ESCREEN Georgie Valencia [id number] Georgie Valencia 12/28/2022 OC-ESCREEN Georgie Valencia [id number] 6S [id number] [id number] Georgie Valencia OBGyn Episode No OBEpisode recorded.
--- OUTSIDE RECORDS SUMMARY | 2025-04-24 07:45 | XMS_ITS | Clinical Summary ---
Author Organization [facility] Address [address] [place] [address] Care Team Providers Care Metal Casket Assembler Name Role Phone Zac Noriega MD Primary Care Provider [phone] Allergies Active Allergy Reactions Criticality Noted Date [...] Cervical Cancer Screening (P ap Smear) 2001 Colon Cancer Screening (Colonoscopy) 2025 Influenza Vaccine (#1) 2025 Pneumococcal Vaccine Aged Out No long er eligible based on patient's age to complete this topic RSV Ped < 20 months Aged Out No longe r eligible based on patient's age to complete this topic Care Teams Metal Casket Assembler Relationship Specialty Start Date End Date Zac Noriega MD [address] [place] [address] [address] [place] [address] PCP - General Prepress Proofer 10/30/21
--- NOTE | 2025-04-24 07:48 | MHC.OFFVIS ---
Vital Signs 04/24/25 07:49 Height 5 ft 3 in Weight 165 lb BMI 29.2 BP 90/60 Blood Pressure Location Lt brachial Position Sitting Pulse 68 Pulse Oximetry (%) 98 Oxygen Delivery Method Room Air Intake Visit Reasons: colo screening Intake Note: Patient new consult for pre Colonoscopy screening. Patient cc: abdominal bloating ??, nauseas in the morning, and some difficulty swallowing on and off/ pt think is due the spinal surgery she had years ago. Exchange Architect Required: No Accompanied by: Self / Same As Patient Allergies bee pollen Allergy (Severe, Verified 04/24/25 07:48) Anaphylaxis oxycodone Allergy (Severe, Verified 04/24/25 07:48) Hives shellfish derived Allergy (Severe, Verified 04/24/25 07:48) Anaphylaxis Opioids - Morphine Analogues (OPIOIDS - MORPHINE ANALOGUES) Allergy (Intermediate, Verified 04/24/25 07:48) HIVES aspirin (ASA) Allergy (Unknown, Verified 04/24/25 07:48) Gastrointestinal Hemorrhage sulfamethoxazole (From BACTRIM) Allergy (Unknown, Verified 04/24/25 07:48) Hives trimethoprim (From BACTRIM) Allergy (Unknown, Verified 04/24/25 07:48) Rash Penicillins Adverse Reaction (Intermediate, Verified 04/24/25 07:48) Unknown Medication List - Last Reconciled 04/24/25 by Casandra Jimenez CNP acetaminophen ER 650 - 1,300 mg PO Q8H PRN bisacodyl (Dulcolax (bisacodyl)) 20 mg (4 x 5 mg) PO ONCE 1 day polyethylene glycol 3350 (Miralax) 238 grams PO ONCE HPI HPI colo screening: Details: Patient is a 45-year-old female with PMH of hypotension, SVT, asthma, epilepsy, PCOS and cervical cancer s/p LEEP 2013. Referred by PCP for pre colonoscopy screening. This will be Georgie's first colonscopy. She reports hx of second degree relative (M. grandfather) with CRC. Georgie reports nausea occurring intermittently, primarily in the mornings, for several months. Symptoms are not consistently linked to meals or specific foods, except for some sensitivity to spicy or Syriac foods causing loose stools. Patient denies experiencing daily nausea or pain but notes discomfort on and off. No definitive triggers identified except spicy foods. Regular bowel movements, occasional loose stools after certain foods but no concerning changes in stool. The recent abdominal weight gain and stretch dolly development are noted post-D&C in June last year. Patient has history of cervical cancer, with recent completion of menopause evaluation. No vomiting, regurgitation, or significant reflux present. Previous labs in October showed normal results, with electrolytes and thyroid levels checked again recently and found unremarkable. Also with decrease appetite and dysphasia with globus sensation X 2 years. However, she unsure if these symptoms are related to a cervical spinal surgery performed 6+ years ago. She denies choking. Patient denies: fever/chills, vomiting, regurgitation, unintentional wt loss, ab pain or melena/hematochezia. Social hx: -denies ETOH use -denies recreational drug use -former smoker, cessation 3 years - family hx as below -tolerated anesthesia in the past without difficulty. [facility] Medical History (Updated 04/24/25 @ 08:34 by Casandra Jimenez CNP) Right upper quadrant pain Loose stools Abdominal bloating Nausea Colon cancer screening Hot flashes Family history of breast cancer Cyst of right breast Ovarian cyst Pelvic pain in female Abnormal Pap smear of cervix Breast pain Smoking PCOS (polycystic ovarian syndrome) Asthma Other cyst of bone, right shoulder Miscarriage Cervical cancer SVT (supraventricular tachycardia) Hypotension Epilepsy Surgical History Hx of spinal surgery History of loop electrical excision procedure (LEEP) [place] teeth extracted Family History (Updated 04/24/25 @ 08:18 by Casandra Jimenez CNP) Mother Breast cancer, Onset Age: 66 Maternal Grandfather Colon cancer Social History Alcohol intake: never Patient Tobacco Use Status: Former Tobacco user Cigarette Packs Per Day: 10 e-Cigarette/Vaping Use: Former Use Gender identity: Female Female Reproductive History Menstrual Age of Menarche: 12 Review of Systems Const Reports as per HPI ENT Reports as per HPI Card Reports as per HPI Resp Reports as per HPI GI Reports as per HPI Reports as per HPI Physical Exam Vital Signs: Last Vital Signs Pulse 68 04/24/25 07:49 BP 90/60 04/24/25 07:49 Pulse Ox 98 04/24/25 07:49 Oxygen Delivery Method Room Air 04/24/25 07:49 BMI result Body Mass Index 29.2 Const General: healthy appearing, no acute distress and well developed Nutritional Appearance: average body habitus Orientation/consciousness: patient oriented x3 HEENT Head: Yes normal to inspection, Yes normocephalic and Yes atraumatic Face and sinus: Yes normal facial exam Eyes General: appearance normal, both eyes and all related structures Neck Neck: Yes normal visual inspection Resp Effort & Inspection: normal respiratory effort, able to speak in complete sentences, no tracheal deviation and symmetric chest movement Auscultation: clear to auscultation bilaterally Cardio Jugular venous distension: no JVD Rate: regular rate Rhythm: regular rhythm Heart sounds: S1 normal heart sound present, S2 normal heart sound present, no gallops and no murmurs GI Inspection: Yes normal to inspection, No distended, Yes striae and Yes other (mild ab bloating) Palpation (GI): Soft to palpation, not firm, Tenderness to palpation present (GI) in the RUQ and Méndez's sign positive and No hepatosplenomegaly present Auscultation: normoactive bowel sounds Neuro General: patient oriented x3 Gait exam (Neuro): Normal gait present Psych Appearance: grossly normal Mental Status: mental status grossly normal Speech and movement: Normal speech and movement present Affect: normal affect Attitude: cooperative Thought process: Normal thought process present Thought content: Normal thought content present Insight: Good insight present (Psych) Judgement: Good judgement present (Psych) Assessment & Plan Assessment & Plan (1) Colon cancer screening: Code(s): Z12.11 - Encounter for screening for malignant neoplasm of colon Category: Medical Plan: Due for routine CRC screening. Medications: -prescriptions for laxative tablets and miralax sent to pharmacy; instructions for Gatorade purchase and clear liquid diet given. Patient educated on scheduling process, procedure preparation, including avoiding certain foods and ensuring clear liquid intake Advised on necessity for ride post-procedure due to sedation. (2) Nausea: Code(s): R11.0 - Nausea Category: Medical Plan: Subactue with ab bloating. DDX: Hepatopancreatobiliary induced VS silent GERD VS or menopausal induced. Additional test: urgent ab US, labs. We will consider barium swallow study and/or EGD if workup unyielding Medication: declined pharmacological management. Prefers to continue with martin tablets as needed (3) Loose stools: Code(s): R19.5 - Other fecal abnormalities Category: Medical Plan: Chronic, diet induced. symptoms c/w with IBS-D. However, advised further workup to r/o celiac, hepatopancreatobiliary or less likely IBD. additional test: basic/screening labs, stool testing and US/colonoscopy as above Lifestyle modifications: diet as tolerated Plan Follow-up in 8 weeks or sooner as needed Time: I spent a total of 45 minutes on the date of encounter which includes: Preparing to see the patient (reviewed previous documentation, test results and medical history) Performing a medically appropriate exam and/or evaluation Ordering medications, tests, and procedures Documenting clinical information in the health record Orders: Orders US abdomen complete 04/24/25 R10.11 - Right upper quadrant pain, R11.0 - Nausea, R14.0 - Abdominal distension (gaseous) Lipase 04/24/25 R10.11 - Right upper quadrant pain, R11.0 - Nausea Comprehensive [place]. Panel Fast 04/24/25 R10.11 - Right upper quadrant pain, R11.0 - Nausea Calprotectin, Fecal 04/24/25 R19.5 - Other fecal abnormalities Transglutaminase IgA 04/24/25 R19.5 - Other fecal abnormalities Medications: New bisacodyl (Dulcolax (bisacodyl)) Take four tablets pre colonoscopy instructions 20 mg (4 x 5 mg) PO ONCE 4 tabs 0RF 1 day polyethylene glycol 3350 (Miralax) per colonoscopy prep instructions 238 grams PO ONCE 238 grams 0RF Coding Level of Care Code New Pt New Pt Level 4 (89123) Patient Type New Diagnoses Colon cancer screening Z12.11 Nausea R11.0 Loose stools R19.5
[2025-04-24 07:49] VITALS: BP 90/60; PULSE 68; O2SAT 98; BMI 29.2
== END 2025-04-24 08:38 | disposition home or self-care (01) ==
LOC: HO.HGI 07:42
PROVIDERS: Visit Provider Nurse Practitioner Family
DX: Z01.818 Encounter for other preprocedural examination (principal); Z12.11 Encounter for screening for malignant neoplasm of colon; R19.5 Other fecal abnormalities; R11.0 Nausea
CPT/HCPCS: 99204

== ENCOUNTER 2025-04-27 08:19 | Outpatient (REF) | payer OTHER, SELFPAY ==
--- NOTE | ~2025-04-27 | MM_ITS ---
EXAMINATION: MM DIAGNOSTIC DIGITAL BREAST TOMOSYNTHESIS, BILATERAL Bilateral Limited ultrasound. CLINICAL INFORMATION: Bilateral palpable lumps. Patient does not feel lumps today. History of breast cancer including patient's mother. COMPARISON: Mammography: Comparison is made with relevant prior exams. TECHNIQUE: Digital breast mammography with tomosynthesis is performed in both the craniocaudal and mediolateral oblique views along with computer-aided detection (CAD). FINDINGS: The breasts are heterogeneously dense, which may obscure small masses (ACR BI-RADS breast composition Category c). Left: Asymmetry medial breast on CC view far posterior depth stable dating back to 2019. No suspicious masses calcifications or other abnormal findings. Targeted color Doppler ultrasound scanning in the lower outer quadrant area of previously felt palpable lump demonstrates normal fibroglandular breast tissue. No sonographic abnormal finding is seen. Right: There are no significant masses, abnormal calcifications, or other abnormalities. Targeted color Doppler ultrasound scanning in the lower outer quadrant area of previously felt palpable lump demonstrates normal fibroglandular breast tissue. There is no sonographic abnormal finding. Results are provided to the patient at time of visit by the technologist. MM/MM tomosynthesis diagnostic BI IMPRESSION: No mammographic or sonographic abnormal findings to account for the patient's previously felt bilateral palpable lumps. Recommend clinical evaluation and follow-up. ASSESSMENT: BI-RADS BI-RADS 2 - Benign Findings RECOMMENDATION: 1 year F/U This patient's information was entered into a reminder system with a target due date for their next mammogram. Electronically signed by: Amy Loza DO 04/27/2025 09:23 AM EDT
--- OUTSIDE RECORDS SUMMARY | 2025-04-27 08:28 | XMS_ITS | Clinical Summary ---
Author Organization [employer] [facility] Address [address] [place] [address] Care Team Providers Care Structural Biologist Name Role Phone Zac Noriega MD Primary Care Provider [phone] Medications fludrocortisone (FLORINEF) 0.1 mg tablet Take [...] 01/08/2022 9:17 AM EDT Plan of Treatment Upcoming Encounters Date Type Department Care Team ([facility] st Contact Info) Description 05/02/2025 12:00 PM EDT Office Visit [facility] [place] [facility] [place] [address] [facility] [address] [place] [id number] Pernell Mcdaniel MD [address] [facility] [address] [place] [address] Health Maintenance Due Date Last Done Comments [...] Smear 11/22/2022 11/22/2019, 12/04/2016, 05/29/2015 COVID-19 Vaccine ( - 2023-2 5 season) 2024 Depression Screening 09/27/2024 Influenza [...] as per clinician's request. Specimen screened at [facility] [address] [place] [address] HISTORICAL TESTING LAB RESULTING AGENCY Signed Signed by Sindhu Woods ON 11/29/2019 14:09 HISTORICAL TESTING LAB RESULTING AGENCY Comment SOURCE: CERVICAL ONLY HISTORICAL TESTING LAB RESULTING AGENCY 11/22/2019 1:31 PM EST Jose Pearce MD LAB CYTOLOGY ORDERABLES Fin al Result HISTORICAL TESTING LAB RESULTING AGENCY from Last 3 Months or Most Recently Relevant to Health Maintenance Insurance [facility] Care Teams Structural Biologist Relationship Specialty Start Date End Date Zac Noriega MD [address] [place] [address] Dr Parish [place] PCP - General Facilities Operations Technician 10/30/21
--- OUTSIDE RECORDS SUMMARY | 2025-04-27 08:28 | XMS_ITS | Clinical Summary ---
Author Organization [facility] Address [address] [place] [address] Care Team Providers Care Chief Nurse Name Role Phone Zac Noriega MD Primary Care Provider [phone] Allergies Active Allergy Reactions Criticality Noted Date [...] age to complete this topic Care Teams Chief Nurse Relationship Specialty Start Date End Date Zac Noriega MD [address] [place] [address] [address] [place] [address] PCP - General Deliverer Food 10/30/21
== END 2025-04-27 08:20 | disposition home or self-care (01) ==
LOC: HO.MAMMO 08:19
PROVIDERS: PCP Physician Assistant; Visit Provider Obstetrics & Gynecology
DX: N63.10 Unspecified lump in the right breast, unspecified quadrant (principal); N63.20 Unspecified lump in the left breast, unspecified quadrant
CPT/HCPCS: 76641; 77062; 77066

== ENCOUNTER → 2025-04-27 08:30 | Outpatient (BNV) | payer OTHER, SELFPAY | PROVIDERS: PCP Physician Assistant; Visit Provider Internal Medicine | DX: N64.89 Other specified disorders of breast (principal) | CPT/HCPCS: 76641; 77062; 77066 ==

== ENCOUNTER 2025-05-14 07:50 | Outpatient (REF) | payer OTHER, SELFPAY ==
--- NOTE | ~2025-05-14 | US_ITS ---
EXAMINATION: US ABDOMEN COMPLETE CLINICAL INFORMATION: Nausea.. COMPARISON: Ultrasound abdomen dated December 05, 2020. TECHNIQUE: Real-time ultrasound of the abdomen using grayscale and color Doppler technique. FINDINGS: PANCREAS: No peripancreatic fluid collections. ABDOMINAL AORTA: The proximal, mid, and distal segments are normal in caliber. INFERIOR VENA CAVA: Visualized portions are normal. LIVER: Liver measures 16 cm by the hematology technologist. No nodular surface. Normal echotexture. No gross solid or cystic lesion detected by the technologist. No intrahepatic biliary ductal dilatation. GALLBLADDER: Fluid-filled. No distended. No pericholecystic fluid collection. No gallbladder wall thickening. COMMON BILE DUCT: 4 mm. RIGHT KIDNEY: 12 cm. Normal echotexture. Normal renal cortical thickness. No hydronephrosis. No gross solid or cystic lesion detected.. LEFT KIDNEY: 10 cm. Normal echotexture. Normal renal cortical thickness. No hydronephrosis. No solid or cystic lesion detected. SPLEEN: 9 cm. No focal lesion.. FREE FLUID: None. US/US abdomen complete IMPRESSION: No cholelithiasis or choledocholithiasis. No hydronephrosis. No ascites. Electronically signed by: Jasen Quick MD 05/14/2025 08:47 AM EDT
--- OUTSIDE RECORDS SUMMARY | 2025-05-14 07:52 | XMS_ITS ---
Author Name [facility] Organization Unknown History of Medication Use Medication Directions Dispensed Refills Start Date End Date Stat us fludrocortisone (FLORINEF) 0.1 mg tablet Take 1 tablet (0.1 mg total) by mouth 1 (one) time each day. 04/04/2025 active Problems Problem Status Onset Date Problem Type Date of Resolution Source Dizziness active EncounterDiagnosisAct CT_THSFRAN Syncope, unspecified syncope type active EncounterDiagnosisAct CT_THS RHEA PSVT (paroxysmal supraventricular tachycardia) (CMS/[facility] V24) active 2025-05-02 ProblemAct CT_THSFRAN Encounters Encounter Type Encounter Reason Primary Diagnosis Location Date Ambulatory [facility] Care Team Organization Name Specialty Phone Email Start Date End Da te [facility] Primary Care 05/04/2025 [facility] Primary Care 05/02/2025
--- OUTSIDE RECORDS SUMMARY | 2025-05-14 07:52 | XMS_ITS | Clinical Summary ---
Author Organization [facility] [place] Address [address] [place] [address] Phone Care Team Providers Care Mechanist Name Role Phone Zac Noriega MD Primary Care Provider [phone] Medications fludrocortisone (FLORINEF) 0.1 mg tablet Take 1 tablet (0.1 mg total) by mouth 1 (one) time each day. 90 each 3 04/04/2025 Active Active Problems Problem Noted Date Diagnosed Date PSVT (paroxysmal supraventri cular tachycardia) (CMS/HCC V24) 05/02/2025 Encounters Date Type Department Care Team Description 05/02/2025 12:00 PM EDT Office Visit [facility] [address] [place] [phone] Pernell Mcdaniel MD Dizziness (Primary Dx); Preop cardiovascular exam; Syncope, unspecified syncope type; PSVT (paroxysmal supraventricular tachycardia) (CMS/HCC V24) from Last 3 Months Surgical History Surgery Date Site/Laterality Comments OTHER [...] Sign Reading Time Taken Comments Blood Pressure 110/76 05/02/2025 10:33 AM EDT Pulse 75 04/29/2023 3:33 PM EDT Temperature - - Respiratory Rate - - Oxygen Saturation - - Inhaled Oxygen Concentration - - Weight 73.5 kg (162 lb) 05/02/2025 10:34 AM EDT Height 157.5 cm (5' 2 ) 05/02/2025 10:34 AM EDT Body Mass Index 29.63 05/02/2025 10:34 AM EDT Plan of Treatment Health Maintenance [...] Pap smear (11/22/2019 1:31 PM EST) Pathologist [facility] Clinical Information Z12.4 LMP: 10/07/19 HX: EMILIANA 2/3 (2013) PERFORM HPV/DNA TESTING REGARDLESS OF DIAGNOSIS HISTORICAL TESTING LAB RESULTING AGENCY Cytologic Final Diagnosis Negative for intraepithelial lesion or malignancy. Yeast and pseudohyphae present consistent with Yudi species. Satisfactory for evaluation. Endocervical/trans formation zone component present. Specimen to be sent for HPV as per clinician's request. Specimen screened at [facility] [address] [place] [address] HISTORICAL TESTING LAB RESULTING AGENCY Signed Signed by Sindhu Woods ON 11/29/2019 14:09 HISTORICAL TESTING LAB RESULTING AGENCY Comment SOURCE: CERVICAL ONLY HISTORICAL TESTING LAB RESULTING AGENCY 11/22/2019 1:31 PM EST Jose Pearce MD LAB CYTOLOGY ORDERABLES Fin al Result HISTORICAL TESTING LAB RESULTING AGENCY from Last 3 Months or Most Recently Relevant to Health Maintenance Insurance [facility] Care Teams Mechanist Relationship Specialty Start Date End Date Zac Noriega MD [address] [place] [address] Dr N[place]ojaswant [place] PCP - General Nurse Intern 10/30/21
--- OUTSIDE RECORDS SUMMARY | 2025-05-14 07:52 | XMS_ITS | Clinical Summary ---
Author Organization [facility] Address [address] [place] [address] Care Team Providers Care Latin Teacher Name Role Phone Zac Noriega MD Primary [...] age to complete this topic Care Teams Latin Teacher Relationship Specialty Start Date End Date Zac Noriega MD [address] [place] [address] [address] [place] [address] PCP - General Sponge Hooker 10/30/21
== END 2025-05-14 07:51 | disposition home or self-care (01) ==
LOC: HO.US 07:50
PROVIDERS: Visit Provider Nurse Practitioner Family
DX: R11.0 Nausea (principal); R14.0 Abdominal distension (gaseous); R10.11 Right upper quadrant pain
CPT/HCPCS: 76700

== ENCOUNTER → 2025-05-14 07:50 | Outpatient (BNV) | payer OTHER, SELFPAY | PROVIDERS: Visit Provider Radiology Diagnostic Radiology | DX: R11.0 Nausea (principal) | CPT/HCPCS: 76700 ==

== ENCOUNTER 2025-06-28 09:09 | Outpatient (AMB) | payer OTHER, SELFPAY ==
--- NOTE | 2025-06-28 09:43 | MHC.OFFVIS ---
Vital Signs 06/28/25 09:45 Height 5 ft 3 in Weight 165 lb BMI 29.2 Intake Visit Reasons: Pelvic pain Director Of Manufacturing Operations Required: No Information Interpreted: non-clinical & clinical Pipe Maker: Pipe Maker Present (Latonya Moreau SILVANOFredy) Accompanied by: Self / Same As Patient Allergies bee pollen Allergy (Severe, Verified 06/28/25 09:45) Anaphylaxis oxycodone Allergy (Severe, Verified 06/28/25 09:45) Hives shellfish derived Allergy (Severe, Verified 06/28/25 09:45) Anaphylaxis Opioids - Morphine Analogues (OPIOIDS - MORPHINE ANALOGUES) Allergy (Intermediate, Verified 06/28/25 09:45) HIVES aspirin (ASA) Allergy (Unknown, Verified 06/28/25 09:45) Gastrointestinal Hemorrhage sulfamethoxazole (From BACTRIM) Allergy (Unknown, Verified 06/28/25 09:45) Hives trimethoprim (From BACTRIM) Allergy (Unknown, Verified 06/28/25 09:45) Rash Penicillins Adverse Reaction (Intermediate, Verified 06/28/25 09:45) Unknown HPI Comments Details: The patient is presenting with mid pelvic pain started 1-2 months ago. It's intermittent in nature lasting few seconds and occurs after cuff or during intercourse. it is not associated with vaginal discharge, no constipation, no dysuria, no frequency or incontinence, no n/v, no feverishness PFSH Medical History Right upper quadrant pain Loose stools Abdominal bloating Nausea Colon cancer screening Hot flashes Family history of breast cancer Cyst of right breast Ovarian cyst Pelvic pain in female Abnormal Pap smear of cervix Breast pain Smoking PCOS (polycystic ovarian syndrome) Asthma Other cyst of bone, right shoulder Miscarriage Cervical cancer SVT (supraventricular tachycardia) Hypotension Epilepsy Surgical History Hx of spinal surgery History of loop electrical excision procedure (LEEP) [place] teeth extracted Family History Mother Breast cancer, Onset Age: 66 Maternal Grandfather Colon cancer Social History Alcohol intake: never Patient Tobacco Use Status: Former Tobacco user Cigarette Packs Per Day: 10 e-Cigarette/Vaping Use: Former Use Gender identity: Female Female Reproductive History Menstrual Age of Menarche: 12 Assessment & Plan Assessment & Plan (1) Pelvic pain: Code(s): R10.2 - Pelvic and perineal pain Category: Medical Plan: Urine test done in the office was negative. GC and chlamydia taken and pelvic ultrasound ordered. Discussed with the patient the differential diagnosis of pelvic pain including but not limited to adnexal, uterine masses, pelvic infections (PID), GI the (Irritable bowel syndrome, diverticulitis, others), musculoskeletal, myofascial pain abdominal wall , adhesions, endometriosis, psychological and others causes. Will check results and treat accordingly. All questions answered, the patient verbalized understanding. Instructed the patient to schedule an ultrasound and a follow-up appointment in 2 weeks. All questions answered, the patient verbalized understanding and agreed with the plan. (2) Microscopic hematuria: Code(s): R31.29 - Other microscopic hematuria Category: Medical Plan: Urine dip showed microscopic hematuria, urine culture sent. Will repeat urine dip in 2 weeks. Discussed with the patient the possible causes of microscopic hematuria including but not limited to: interstitial cystitis, polyps, stones, masses, urethral inflammatory processes and others. If Urine Culture is negative and repeat urine dip in 2 weeks shows persistent microscopic hematuria, will proceed with CT abdomen/pelvis and urology referral. Instructions given the patient to schedule a 2 week urine dip follow-up appointment. All questions answered and the patient verbalized understanding. Orders: Orders CT NG by PCR Vag/Cerv Today R10.2 - Pelvic and perineal pain AMB HCG Urine Test Today R10.20 - Pelvic and perineal pain unspecified side, Z32.02 - Encounter for test, result negative AMB Urinalysis Dipstick Today R10.20 - Pelvic and perineal pain unspecified side, Z32.02 - Encounter for test, result negative Urine Culture Today R31.29 - Other microscopic hematuria Coding Level of Care Code Est Pt Level 3 (48113) Diagnoses Pelvic pain R10.2 Microscopic hematuria R31.29
[2025-06-28 09:45] VITALS: BMI 29.2
--- OUTSIDE RECORDS SUMMARY | 2025-06-28 09:57 | XMS_ITS | Clinical Summary ---
Author Organization [facility] Address [address] [place] [address] Care Team Providers Care Fruit Worker Name Role Phone Zac Noriega MD Primary Care Provider [phone] Allergies Active Allergy Reactions Criticality Noted Date [...] age to complete this topic Care Teams Fruit Worker Relationship Specialty Start Date End Date Zac Noriega MD [address] [place] [address] [address] [place] [address] PCP - General Health Care Analyst 10/30/21
--- OUTSIDE RECORDS SUMMARY | 2025-06-28 09:57 | XMS_ITS | Clinical Summary ---
Author Organization [facility] Flight Attendant/Inflight Manager [place] Address [address] [place] [address] Phone Care Team Providers Care Preforms Laminator Name Role Phone Zac Noriega MD Primary Care Provider [phone] Medications fludrocortisone (FLORINEF) 0.1 mg tablet Take 1 tablet (0.1 mg total) by mouth 1 (one) time each day. 90 each 3 04/04/2025 Active Active Problems Problem Noted Date Diagnosed Date PSVT (paroxysmal supraventri cular tachycardia) (CMS/HCC V24) 05/02/2025 Encounters Date Type Department Care Team Description 05/02/2025 12:00 PM EDT Office Visit [facility] Cardiology [facility] [address] [place] [id number] Pernell Mcdaniel MD Dizziness (Primary Dx); [...] P ap Smear 11/22/2022 11/22/2019, 12/04/2016, 05/29/2015 Depression Screening 09/27/2024 COVID-19 Vaccine ( - 2023-2 5 season) 2025 Influenza Vaccine (#1) 2025 RSV Immunization Adult Patients (1 - 1-dose 75+ series) 2055 HIB Vaccines Aged Out No longer eligi [...] as per clinician's request. Specimen screened at [facility] [address] [place] [address] HISTORICAL TESTING LAB RESULTING AGENCY Signed Signed by Sindhu Woods ON 11/29/2019 14:09 HISTORICAL TESTING LAB RESULTING AGENCY Comment SOURCE: CERVICAL ONLY HISTORICAL TESTING LAB RESULTING AGENCY 11/22/2019 1:31 PM EST us Jose Pearce MD LAB CYTOLOGY ORDERABLES Fin al Result HISTORICAL TESTING LAB RESULTING AGENCY from Last 3 Months or Most Recently Relevant [place] [id number] [facility] Care Teams Preforms Laminator Relationship Specialty Start Date End Date Zac Noriega MD [address] [place] [address] Dr Parish MA PCP - General Marzipan Maker 10/30/21
== END 2025-06-28 09:55 | disposition home or self-care (01) ==
LOC: HO.HWS 09:10
PROVIDERS: Visit Provider Obstetrics & Gynecology
DX: Z32.02 Encounter for pregnancy test, result negative (principal); R10.20 Pelvic and perineal pain unspecified side; R31.29 Other microscopic hematuria
CPT/HCPCS: 99213

== ENCOUNTER 2025-06-28 09:09 | Outpatient (REF) | payer OTHER, SELFPAY ==
[2025-06-29 09:06] LABS: CT PCR NOT DETECTED (Not Detect.); NG PCR NOT DETECTED (Not Detect.)
== END 2025-06-28 09:10 | disposition home or self-care (01) ==
LOC: HO.LNP 09:09
PROVIDERS: Visit Provider Obstetrics & Gynecology
DX: R10.20 Pelvic and perineal pain unspecified side (principal); R31.29 Other microscopic hematuria; Z20.2 Contact with and (suspected) exposure to infections with a predominantly sexual mode of transmission; Z32.02 Encounter for pregnancy test, result negative
CPT/HCPCS: 81002; 81025; 87086; 87491; 87591

== ENCOUNTER 2025-08-14 07:25 | Emergency (ER) | payer SELFPAY ==
--- NOTE | ~2025-08-14 | US_ITS ---
EXAMINATION: US PELVIS CLINICAL INFORMATION: Left Pelvic pain. 45-year-old female. LMP = years ago as per patient. History of cysts and endometriosis. COMPARISON: 05/03/2024, 01/21/2024. TECHNIQUE: Ultrasound of the pelvis is performed using both transabdominal and transvaginal transducers along with Doppler. Transvaginal imaging is performed due to inadequate visualization transabdominally. FINDINGS: Uterus: The uterus is anteverted, anteflexed, and measures 7.2 x 2.6 x 4.7 cm. The cervix demonstrates numerous small nabothian cysts but is otherwise normal. The double wall endometrial thickness is 13 mm. It appears thickened and heterogeneous. The uterus is smooth in contour and has mildly heterogeneous myometrial echogenicity. No visible fibroid. Adnexa: Both ovaries are visualized. There is normal color flow to the adnexa. There is no ovarian torsion. There is no pelvic ascites or fluid collection. There are no adnexal masses. Right ovary measures 3.6 x 1.7 x 1.9 cm. Volume = 6.1 mL. Normal sonographic appearance. Left ovary measures 3.5 x 3.0 x 3.6 cm. Volume = 19.8 mL. There is a hemorrhagic cyst with lacy type echoes in the left ovary measuring 3.2 x 1.7 x 3.0 cm. US/US pelvic and transvaginal IMPRESSION: 1. Thickened and heterogeneous endometrium measuring 13 mm. This may represent hyperplasia and/or neoplasia. 2. Hemorrhagic cyst in the left ovary measuring 3.2 x 1.7 x 3.0 cm. 3. There is no free pelvic fluid. Electronically signed by: Alex Myles MD 08/14/2025 10:14 AM [facility]
[2025-08-14 07:31] VITALS: BP 126/65; PULSE 71; RESP 18; TEMP 36.8; O2SAT 98; BMI 29.2
--- NOTE | 2025-08-14 07:36 | ED_ITS ---
HPI - Abdominal Pain General Chief Complaint: Abdominal Pain Stated Complaint: Vaginal Issues Time Seen by Provider: 08/14/25 07:27 History of Present Illness ED Provider: Swati Scott HPI narrative: 45-year-old female with a longstanding history of amenorrhea, perimenopausal, ovarian cysts/PCOS, chronic pelvic pain, asthma, SVT presents to the ED for evaluation reporting left lower quadrant pelvic pain that began acutely this morning. Patient reports that she has issues roughly every 6 months that are very similar. For several weeks now she has had painful sexual intercourse and a dull pain in this area. Denies any urinary frequency, urgency, dysuria or hematuria. No abnormal vaginal bleeding or discharge. Patient reports that last night she felt a gushing sensation in the lower quadrant of the pelvis on the left side, but did not experience any bleeding or discharge after that. Describes the pain as stabbing, localized to the left lower quadrant alone. Some nausea, no vomiting, diarrhea or constipation. Denies any chest pain or pressure, shortness of breath or palpitations. Reports that she has been experiencing fatigue since she stopped drinking caffeine/Soda about 3 weeks ago. 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 No fever, chills or recent illnesses. Related Data Home Medications ?Medication ?Instructions ?Recorded ?Confirmed acetaminophen 650 mg 650 - 1,300 mg PO Q8H PRN Pa in 02/27/21 02/28/25 tablet,extended release Previous Rx's ?Medication ?Instructions ?Recorded bisacodyl 5 mg tablet,delayed 20 mg (4 x 5 mg) PO ONCE 1 day #4 04/24/25 release (Dulcolax (bisacodyl)) tabs polyethylene glycol 3350 17 238 g PO ONCE #238 grams 0 04/24/25 gram/dose oral powder (Miralax) ondansetron 4 mg disintegrating 4 mg PO Q8H PRN nausea and 08/14/25 tablet vomiting #14 tabs Allergies Allergy/AdvReac Type Severity Reaction Status Date / Time bee pollen Allergy Severe Anaphylaxis Verified 08/14/25 07:32 oxycodone Allergy Severe Hives Verified 08/14/25 07:32 shellfish derived Allergy Severe Anaphylaxis Verified 08/14/25 07:32 Opioids - Morphine Analogues Allergy Intermediate HIVES Verified 08/14/25 07:32 (OPIOIDS - MORPHINE ANALOGUES) aspirin (ASA) Allergy Unknown Gastrointestinal Verified 08/14/25 07:32 Hemorrhage sulfamethoxazole (From Allergy Unknown Hives Verified 08/14/25 07:32 BACTRIM) trimethoprim (From BACTRIM) Allergy Unknown Rash Verified 08/14/25 07:32 Penicillins AdvReac Intermediate Unknown Verified 08/14/25 07:32 Review of Systems Review of Systems ROS is otherwise negative unless mentioned in HPI. [facility] Past Medical History Medical History Right upper quadrant pain Loose stools Abdominal bloating Nausea Colon cancer screening Hot flashes Family history of breast cancer Cyst of right breast Ovarian cyst Pelvic pain in female Abnormal Pap smear of cervix Breast pain Smoking PCOS (polycystic ovarian syndrome) Asthma Other cyst of bone, right shoulder Miscarriage Cervical cancer SVT (supraventricular tachycardia) Hypotension Epilepsy Surgical History Hx of spinal surgery History of loop electrical excision procedure (LEEP) [place] teeth extracted Family History Family History Mother Breast cancer, Onset Age: 66 Maternal Grandfather Colon cancer Social History Social History Alcohol intake: never Patient Tobacco Use Status: Former Tobacco user Cigarette Packs Per Day: 10 Smoked in Last 30 Days: No e-Cigarette/Vaping Use: Former Use Use of substances other than those prescribed or required for medical reasons: No Advance Directives: No Advance Directives Information Provided: No Do you have a plan to hurt others: No Plan Gender identity: Female Physical Exam ED Exam Exam: Nursing notes and vital signs reviewed. Constitutional: Well-appearing, NAD. Alert. Oriented X3. Eyes: Pupils equal, round and reactive to light. ENT: Pharynx normal. Neck: Normal inspection. Neck supple. CVS: Normal heart rate and rhythm. Pulses normal. Respiratory: No respiratory distress. Breath sounds normal. Abdomen: Soft and nontender. +BSx4. No CVA tenderness bilaterally. Pelvis: Tenderness to the left pelvis, nontender to right. Skin: Skin warm and dry. Normal skin color. Extremities: No lower extremity edema. Neuro: Oriented X 3. No motor deficit. Vital Signs: Vital Signs - 24 hr 08/14/25 07:31 Temperature 98.3 F Pulse Rate 71 Respiratory Rate 18 Blood Pressure 126/65 Pulse Oximetry 98 Oxygen Delivery Method Room Air BMI result Body Mass Index 29.2 Medical Decision Making Medical Decision Making [facility] Narrative: She appears well on my examination, however there is tenderness to the left pelvis. Abdominal exam is benign, no CVA tenderness bilaterally. Less likely renal stone, most likely consistent with ovarian cyst or ovarian torsion. She reports that she has had painful sexual intercourse for several weeks now, a filter gushing sensation starting evening. More concerning for ruptured ovarian cyst. We will obtain transvaginal ultrasound, urinalysis, labs and ECG. If negative hCG will administer Toradol dose for pain control. Will reassess. 1041-- ultrasound reveals evidence of a thickened and heterogeneous endometrium measuring 13 mm, and a hemorrhagic cyst the left ovary measuring 3.2 x 1.7 x 3 cm. There is no pelvic free fluid. This is likely the source of her pain. It is possible she had several cysts, however I would expect to see free fluid if 1 had a recently burst. At this time she is tolerating p.o., requested food while in the ED, and appears much more comfortable. I had offered her additional pain control but she had declined. Does report improvement after IV fluids. Urinalysis with no signs of infection at this time. She will need to follow up with outpatient OBGYN. She has a OBGYN provider that she will call upon leaving today. Provided return precautions to the ED. Differential Diagnosis Differential Diagnoses: The differential diagnosis associated with the presentation includes Ovarian cyst, ovarian torsion, ectopic , ruptured ovarian cyst, , STI, cystitis, renal stone Admission/Observation Consideration of admission/observation: Escalation of care including admission/observation considered Lab Data [facility] Lab Attestation statement: I reviewed the patient's lab results. (Overall reassuring.) 08/14/25 07:56 08/14/25 07:56 Labs: Lab Results 08/14/25 08/14/25 Range/Units 07:56 10:27 WBC 7.8 (4.8-10.8) X10*3/uL RBC 5.10 (4.20-5.50) X10*6/uL Hgb 15.2 (12.0-16.0) g/dl Hct 44.6 (37.0-47.0) % MCV 87.5 (80.0-98.0) fL MCH 29.8 (27.0-33.0) pg MCHC 34.1 (31.0-35.0) g/dl RDW 12.6 (11.0-16.0) % Plt Count 239 D (160-400) X10*3/uL MPV 7.9 L (9.4-12.3) fL Immature Gran % (Auto) 0.3 (0.0-0.4) % Neut % (Auto) 71.2 (45-73) % Lymph % (Auto) 20.6 (20-40) % Mclean % (Auto) 6.1 (2-11) % Eos % (Auto) 1.5 (0-4) % Baso % (Auto) 0.3 (0-2) % Lymph # (Auto) 1.6 (1.2-4.9) X10*3/uL Mclean # (Auto) 0.5 (0.1-1.2) X10*3/uL Eos # (Auto) 0.1 (0.0-0.4) X10*3/uL Baso # (Auto) 0.0 (0.0-0.2) X10*3/uL Abs Immat Gran (auto) 0.02 (0.00-0.03) X10*3/uL Absolute Neuts (auto) 5.5 (2.0-8.3) x10*3/uL Absolute Nucleated RBC 0.000 (0.0-0.012) X10*3/uL Nucleated RBC % (auto) 0.0 (0.0-0.2) /100WBC Sodium 139 (135-145) mmol/L Potassium 3.9 (3.3-5.1) mmol/L Chloride 109 H (96-108) mmol/L Carbon Dioxide 22 (22-29) mmol/L Anion Gap 12 (12-20) BUN 9 (9-16) mg/dL Creatinine 0.70 (0.5-1.4) mg/dL Estim Creat Clear Calc 98.3 Estimated GFR > 60 Fasting Glucose 98 (60-99) mg/dL Calcium 9.3 (8.4-10.2) mg/dL Beta HCG, Quant < 2 mIU/mL Urine Color Cancelled Urine Appearance Cancelled Urine pH Cancelled Ur Specific [place] Cancelled Urine Protein Cancelled Urine Glucose (UA) Cancelled Urine Ketones Cancelled Urine Blood Cancelled Urine Nitrite Cancelled Ur Leukocyte Esterase Cancelled Independent Interpretation I performed an independent interpretation of an: Ultrasound Interpretation: I have reviewed the patient's imaging and agree with the radiologist's findings. Radiology Impression Discussion of test interpretation with radiology: I have reviewed the radiologist's reading. Radiologist Impression: US/US pelvic and transvaginal IMPRESSION: 1. Thickened and heterogeneous endometrium measuring 13 mm. This may represent hyperplasia and/or neoplasia. 2. Hemorrhagic cyst in the left ovary measuring 3.2 x 1.7 x 3.0 cm. 3. There is no free pelvic fluid. External Record Review External record reviewed: Outpatient record and Prior outpatient radiology (Ultrasound from 05/14/2025 with evidence of a 3.7 cm left ovarian simple cyst, small amount of free fluid in the left adnexa.) Tests considered The following testing was considered but not selected: CT imaging of the abdomen and pelvis--less likely renal stone, in the absence of CVA tenderness and hematuria via urinalysis, not indicated at this time; pain is located in the pelvis. Prescription Management I considered prescription management with: Pain Medication (declined by patient) Chronic Conditions Patient?s care impacted by: Other (PCOS) Medications Administered Discontinued Medications Generic Name Dose Route Start Last Admin Trade Name Freq PRN Reason Stop Dose Admin Sodium Chloride 1,000 mls @ 999 mls/hr 08/14/25 07:42 08/14/25 09:10 Ns IV 08/14/25 08:42 Infused .Q1H1M ONE Infusion Ketorolac Tromethamine 15 mg 08/14/25 08:38 08/14/25 08:42 Ketorolac Tromethamine 15 Mg/Ml Vial IVPUSH 08/14/25 08:39 15 mg ONCE ONE Administration Ondansetron HCl 4 mg 08/14/25 07:42 08/14/25 08:00 Ondansetron Hcl 4 Mg/2 Ml Vial IVPUSH 08/14/25 07:43 4 mg ONCE ONE Administration Discharge Plan Discharge Clinical Impression: Hemorrhagic cyst of left ovary, Left-sided pelvic pain Patient Disposition: Home, Self-Care Instructions: Ovarian Cyst (ED) Additional Instructions: As we discussed, your workup today was overall reassuring. Your urine sample showed no signs of infection. We gave you Toradol for pain while in the ED, as well as Zofran for nausea with good effect on your symptoms. Your ultrasound reveals a ovarian cyst in the left side, which is likely causing your pain. We recommend [id number] Tylenol use and close follow up with your OBGYN within the next several days. I have also prescribed you a short course of Zofran that can be used as needed for nausea and/or vomiting. With any worsening complaints at any time, please seek reassessment in the ED. Your ultrasounds are listed below for your convenience to discuss with your PCP and OB/GY Provider: US/US pelvic and transvaginal IMPRESSION: 1. Thickened and heterogeneous endometrium measuring 13 mm. This may represent hyperplasia and/or neoplasia. 2. Hemorrhagic cyst in the left ovary measuring 3.2 x 1.7 x 3.0 cm. 3. There is no free pelvic fluid. Prescriptions: New ondansetron 4 mg tablet,disintegrating 4 mg PO Q8H PRN (Reason: nausea and vomiting) Qty: 14 0RF No Action acetaminophen 650 mg tablet extended release 650 - 1,300 mg PO Q8H PRN (Reason: Pain) bisacodyl [Dulcolax (bisacodyl)] 5 mg tablet,delayed release (DR/EC) 20 mg PO ONCE 1 Days Qty: 4 0RF Rx Instructions: Take four tablets pre colonoscopy instructions polyethylene glycol 3350 [Miralax] 17 gram/dose powder 238 g PO ONCE Qty: 238 0RF Rx Instructions: per colonoscopy prep instructions Referrals: Mariam Moise PA [Primary Care Provider, Hospitalist] Stand Alone Forms: Work/School Release Print Language: Ukrainian
[2025-08-14 08:01] LABS: MANUAL DIFF FLAG NO
[2025-08-14 08:03] LABS: Hematocrit 44.6 % (37.0-47.0); Hemoglobin 15.2 g/dl (12.0-16.0); Imm Gran Abs Auto 0.02 X10*3/uL (0.00-0.03); Imm Gran Pct Auto 0.3 % (0.0-0.4); Lymphocytes Absolute Auto 1.6 X10*3/uL (1.2-4.9); Mean Corpuscular HGB Conc 34.1 g/dl (31.0-35.0); Mean Corpuscular Hemoglobin 29.8 pg (27.0-33.0); Mean Corpuscular Volume 87.5 fL (80.0-98.0); NRBC Abs Auto 0.000 X10*3/uL (0.0-0.012); NRBC Pct Auto 0.0 /100WBC (0.0-0.2); Platelet Count 239 X10*3/uL (160-400); Red Blood Count 5.10 X10*6/uL (4.20-5.50); White Blood Count 7.8 X10*3/uL (4.8-10.8)
[2025-08-14 08:20] LABS: Anion Gap 12 (12-20); Blood Urea Nitrogen 9 mg/dL (9-16); Calcium 9.3 mg/dL (8.4-10.2); Carbon Dioxide 22 mmol/L (22-29); Chloride 109 mmol/L (96-108); Creatinine Clr Calc Pharmacy 98.3; Estimated Glomerular Filt Rate > 60; Potassium 3.9 mmol/L (3.3-5.1); Sodium 139 mmol/L (135-145)
[2025-08-14 10:42] LABS: Appearance Urine Clear; Glucose Urine UA Negative (Negative); PH 7.0 (5.0-9.0); Specific Gravity - Urine 1.015 (1.005-1.025)
[2025-08-14 10:45] LABS: UPreg QC Valid YES
[2025-08-14 11:01] VITALS: BP 126/65; PULSE 71; RESP 18; TEMP 36.8; O2SAT 98
--- OUTSIDE RECORDS SUMMARY | 2025-08-14 11:14 | XMS_ITS | Clinical Summary ---
Author Organization [facility] Address [address] [place] [address] Care Team Providers Care Infrastructure Architect Name Role Phone Zac Noriega MD Primary Care Provider [phone] Allergies Active Allergy Reactions Criticality Noted Date [...] age to complete this topic Care Teams Infrastructure Architect Relationship Specialty Start Date End Date Zac Noriega MD [address] [place] [address] [address] [place] [address] PCP - General Nutritionists 10/30/21
--- OUTSIDE RECORDS SUMMARY | 2025-08-14 11:14 | XMS_ITS | Clinical Summary ---
Author Organization [facility] Services Manager [place] Address [address] [place] [address] Phone Care Team Providers Care Home Care Aide Name Role Phone Zac Noriega MD Primary Care Provider [phone] Medications fludrocortisone (FLORINEF) 0.1 mg tablet Take 1 tablet (0.1 mg total) by mouth 1 (one) time each day. 90 each 3 04/04/2025 Active Active Problems Problem Noted Date Diagnosed Date PSVT (paroxysmal supraventri cular tachycardia) (CMS/HCC V24) 05/02/2025 Surgical History Surgery Date Site/Laterality Comments OTHER [...] Last Done Comments Breast Cancer Screening 1980 Colorectal Cancer Screening: Colonoscopy 1980 Hepatitis B Vaccines (1 of 3 - 19+ 3-dose series) 1999 Pneumococcal Vaccine: Pediatrics (0 to 5 Years) and At-Risk Patients (6 to 49 Years) (1 of 2 - PCV) 1999 HPV Vaccines (1 - 3-dose SCD M series) 2007 HIV Screening 10/12/2019 Hepatitis C Screening 10/12/2019 Social Influencers of Health Screening 10/12/2019 DTaP,Tdap,and Td Vaccines (2 - Td or Tdap) 10/04/2022 10/04/2012 Cervical Cancer Screening: P ap Smear 11/22/2022 11/22/2019, 12/04/2016, 05/29/2015 Depression Screening 09/27/2024 COVID-19 Vaccine ( - 2024-2 6 season) 2025 Influenza Vaccine (#1) 2025 RSV [...] Pap smear (11/22/2019 1:31 PM EST) Pathologist [facility] Clinical Information Z12.4 LMP: 10/07/19 HX: EMILIANA 2/3 (2013) PERFORM HPV/DNA TESTING REGARDLESS OF DIAGNOSIS HISTORICAL TESTING LAB RESULTING AGENCY Cytologic Final Diagnosis Negative for intraepithelial lesion or malignancy. Yeast and pseudohyphae present consistent with Yudi species. Satisfactory for evaluation. Endocervical/trans formation zone component present. Specimen to be sent for HPV as per clinician's request. Specimen screened at [address] [address] HISTORICAL TESTING LAB RESULTING AGENCY Signed Signed by Sindhu Woods ON 11/29/2019 14:09 HISTORICAL TESTING LAB RESULTING AGENCY Comment SOURCE: CERVICAL ONLY HISTORICAL TESTING LAB RESULTING AGENCY 11/22/2019 1:31 PM EST Jose Pearce MD LAB CYTOLOGY ORDERABLES Fin al Result HISTORICAL TESTING LAB RESULTING AGENCY from Last 3 Months or Most Recently Relevant to Health Maintenance Insurance [address] [place] [id number] [facility] Care Teams Home Care Aide Relationship Specialty Start Date End Date Zac Noriega MD [address] [place] [address] Dr Parish MA PCP - General Redrying Machine Operator 10/30/21
== END 2025-08-14 11:02 | disposition home or self-care (01) ==
PROVIDERS: Nurse Practitioner; Emergency Provider Emergency Medicine; PCP Physician Assistant
DX: N83.202 Unspecified ovarian cyst, left side (principal); R10.22 Pelvic and perineal pain left side; Z88.2 Allergy status to sulfonamides; Z88.5 Allergy status to narcotic agent; Z88.6 Allergy status to analgesic agent; Z91.013 Allergy to seafood; Z91.030 Bee allergy status
CPT/HCPCS: 36415; 76830; 76856; 80048; 81003; 81025; 84702; 85025; 96361; 96374; 96375; 99284; J1885; J2405

== ENCOUNTER → 2025-08-14 07:42 | Outpatient (BNV) | payer OTHER, SELFPAY | PROVIDERS: Emergency Provider Emergency Medicine; PCP Physician Assistant; Visit Provider Radiology Diagnostic Radiology | DX: N93.9 Abnormal uterine and vaginal bleeding, unspecified (principal); N83.202 Unspecified ovarian cyst, left side | CPT/HCPCS: 76830; 76856 ==

== ENCOUNTER 2025-08-16 11:28 | Outpatient (AMB) | payer OTHER, SELFPAY ==
--- NOTE | 2025-08-16 11:19 | MHC.PC.OV ---
Vital Signs 08/16/25 11:30 Height 5 ft 3 in Weight 175 lb BMI 31.0 BP 124/70 Blood Pressure Location Lt brachial Position Sitting Pulse 67 Pulse Source Pulse Oximeter Temp 97.2 F Temp Source Temporal Artery Scan Pulse Oximetry (%) 98 Oxygen Delivery Method Room Air Intake Visit Reasons: Follow up from [facility] 08/14 (see comments) Fashion Editor Required: No Accompanied by: Self / Same As Patient Allergies bee pollen Allergy (Severe, Verified 08/16/25 11:34) Anaphylaxis oxycodone Allergy (Severe, Verified 08/16/25 11:34) Hives shellfish derived Allergy (Severe, Verified 08/16/25 11:34) Anaphylaxis Opioids - Morphine Analogues (OPIOIDS - MORPHINE ANALOGUES) Allergy (Intermediate, Verified 08/16/25 11:34) HIVES aspirin (ASA) Allergy (Unknown, Verified 08/16/25 11:34) Gastrointestinal Hemorrhage sulfamethoxazole (From BACTRIM) Allergy (Unknown, Verified 08/16/25 11:34) Hives trimethoprim (From BACTRIM) Allergy (Unknown, Verified 08/16/25 11:34) Rash Penicillins Adverse Reaction (Intermediate, Verified 08/16/25 11:34) Unknown Medication List - Last Reconciled 08/16/25 by SAROJ Escalante acetaminophen ER 650 - 1,300 mg PO Q8H PRN bisacodyl (Dulcolax (bisacodyl)) 20 mg (4 x 5 mg) PO ONCE 1 day naproxen sodium 550 mg PO Q12H PRN ondansetron 4 mg PO Q8H PRN polyethylene glycol 3350 (Miralax) 238 grams PO ONCE tramadol 50 mg PO BID PRN 7 days Tobacco use date assessed: 08/16/25 Dental Screening Dental Screen Date: 08/16/25 Did you have a dental visit in the last 12 months?: Yes Did you have a dental problem in the last 6 months where you did not have access to dental care?: No HPI HPI Comments History of Present Illness Details History of Present Illness The patient is a 45 year old individual presenting in an urgent visit for follow-up after an ER visit for acute pelvic pain. The pain started last week after coughing, which was associated with a popping sensation in her LLQ. The patient also reports significant pain during sexual intercourse. A subsequent coughing episode led to a feeling that something had ruptured, prompting the ER visit. An ultrasound in the ER revealed a hemorrhagic cyst on the left ovary and a thickened endometrium. The patient is postmenopausal, with the last menstrual period in January. The patient has a history of a D&C with polyp removal in June of the previous year. The pain was rated a 9/10 and decreased to a 6/10 after a Toradol injection in the ER. The patient also experiences a pinching sensation in the groin causing leg numbness. The patient also reports a flare of rheumatoid arthritis, with increased joint swelling to the point of being unable to wear rings, and puffy ankles. This pain has caused insomnia for several days. The patient has been managing the arthritis with Tylenol. The patient has not seen a molecular biology scientist recently due to the high cost of specialist copayments. Past medical history is notable for ADHD, a sensitivity to opiates causing vomiting, and an allergy to Bactrim causing hives. Medical History: - Rheumatoid Arthritis, managed with Tylenol. - History of ovarian cysts. - History of uterine polyps. - Attention-Deficit/Hyperactivity Disorder (ADHD). 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 - Allergy to Bactrim (sulfonamide) resulting in hives. Surgical History: - Dilatation and Curettage (D&C) with polyp removal in June of the previous year. Medications: - Tylenol for arthritis Results - Ultrasound of the pelvis (from recent ER visit): Showed a hemorrhagic cyst on the left ovary and a thickened endometrium. Patient was informed and verbally consented to the use of an ambient scribe for clinic note documentation during this visit. [facility] Medical History (Updated 08/16/25 @ 13:11 by SAROJ Escalante) Abdominal bloating Abnormal Pap smear of cervix Asthma Breast pain Cervical cancer Colon cancer screening Cyst of right breast Epilepsy Family history of breast cancer Hot flashes Hypotension Left ovarian cyst Loose stools Miscarriage Nausea Other cyst of bone, right shoulder Ovarian cyst PCOS (polycystic ovarian syndrome) Pelvic pain in female Rheumatoid arthritis Right upper quadrant pain Smoking SVT (supraventricular tachycardia) Thickened endometrium Surgical History History of loop electrical excision procedure (LEEP) Hx of spinal surgery [place] teeth extracted Family History (Updated 08/16/25 @ 11:36 by Concepcion Davenport MA) Mother Breast cancer, Onset Age: 66 Mental health disorder Maternal Grandfather Colon cancer Father Dementia Mental health disorder Social History Housing: House Alcohol intake: never Patient Tobacco Use Status: Former Tobacco user Cigarette Packs Per Day: 10 e-Cigarette/Vaping Use: Former Use Current occupational status: employed Gender identity: Female Cognitive needs: No Hearing needs: No Vision needs: No Female Reproductive History Menstrual Age of Menarche: 12 Questionnaire PHQ-9 Over the last 2 weeks, how often have you been bothered by any of the following problems? 1. Little interest or pleasure in doing things: not at all 2. Feeling down, depressed, or hopeless: not at all 3. Trouble falling or staying asleep, or sleeping too much: not at all 4. Feeling tired or having little energy: not at all 5. Poor appetite or overeating: not at all 6. Feeling bad about yourself - or that you are a failure or have let yourself or your family down: not at all 7. Trouble concentrating on things, such as reading the newspaper or watching television: not at all 8. Moving or speaking so slowly that other people could have noticed. Or the opposite - being so fidgety or restless that you have been moving around a lot more than usual: not at all 9. Thoughts that you would be better off or of hurting yourself in some way: not at all Total score: 0 Depression Screening Interpretation: Negative Depression Screening Done: Yes Source: Developed by Drs. Lane Steele, Jayla Castano, Kleber Martínez and colleagues, with an educational lora from [employer]. Thrive Questionnaire Date Thrive assessed: 08/16/25 I am a: Patient Within the past 12 months, did the food you bought not last and you didn't have the money to get more?: Never true Within the past 12 months, did you worry whether your food would run out before you got money to buy more?: Never true Do you have trouble paying for medicines?: No Do you have trouble getting transportation to medical appointments?: No Do you have trouble paying your heating and electricity bill?: No Do you have trouble taking care of your child, family member or friend?: No Do you have trouble with day-to-day activities such as bathing, preparing meals, shopping, managing finances, etc.?: No Are you currently unemployed and looking for a job?: No Are you interested in more education?: No THRIVE Score: 0 AUDIT C Alcohol Use Questionnaire (AUDIT-C) 1. How often do you have a drink containing alcohol?: Never 3. How often do you have six or more drinks on one occasion?: Never Total Score: 0 RAQUEL-7 AMB Questionnaire RAQUEL-7 Date RAQUEL - 7 assessed: 08/16/25 Feeling nervous, anxious, or on edge: 1 = Several days Not being able to stop or control worryin = Not at all Worrying too much about different things: 0 = Not at all Trouble relaxin = Not at all Being so restless that it is hard to sit still: 0 = Not at all Becoming easily annoyed or irritable: 0 = Not at all Feeling afraid as if something awful might happen: 0 = Not at all Total RAQUEL-7 score (0-4 normal; 5-9 mild; 10-14 moderate; 15-21 severe): 1 Source: Developed by Drs. Lane Steele, Jayla Castano, Kleber Martínez and colleagues, with an educational lora from [employer]. Review of Systems Narrative Review of Systems - General: Reports insomnia due to pain. - Musculoskeletal: Reports worsening joint pain and swelling in hands and ankles. - Genitourinary: Reports acute pelvic pain, dyspareunia, and is postmenopausal since January. - Neurological: Reports a pinching sensation in the groin causing leg numbness. - Allergic/Immunologic: Reports sensitivity to opiates causing vomiting and an allergy to Bactrim causing hives. - Psychiatric: Reports a history of ADHD. Physical exam (Primary Care) Vital Signs: Last Vital Signs Temp 97.2 F 08/16/25 11:30 Pulse 67 08/16/25 11:30 BP 124/70 08/16/25 11:30 Pulse Ox 98 08/16/25 11:30 Oxygen Delivery Method Room Air 08/16/25 11:30 BMI result Body Mass Index 31.0 GENERAL Well developed, obese, in no apparent distress HEENT Head-Normocephalic Neck- Supple, No lymphadenopathy, thyroid WNL RESPIRATORY Normal I:E, Clear to auscultation CARDIOVASCULAR Regular, rate and rhythm, No murmurs or rubs GASTROINTESTINAL Soft, tender in LLQ, no guarding or rebound, normal bowel sounds, no masses MUSCULOSKELETAL Joints- pain and swelling NEUROLOGICAL Gait normal PSYCHIATRIC Oriented to person, place and time Mood and affect -anxious Appearance WNL Speech WNL Thought processes WNL Tobacco/Smoking Status: Tobacco use Status Tobacco use date assessed 08/16/25 08/16/25 11:20 Patient Tobacco Use Status Former Tobacco user 08/16/25 11:20 Tobacco use type 04/24/25 08:39 e-Cigarette/Vaping Use Former Use 08/16/25 11:20 PHQ-9: PHQ-9 Score PHQ-9: Total score 0 08/16/25 11:20 Depression Screening Interpretation: Negative Thrive Assessment: Date of Thrive Assessment Date Thrive assessed 08/16/25 08/16/25 11:20 Results Reviewed Results Reviewed: Labs were all essentially normal. EXAMINATION: US PELVIS CLINICAL INFORMATION: Left Pelvic pain. 45-year-old female. LMP = years ago as per patient. History of cysts and endometriosis. COMPARISON: 05/03/2024, 01/21/2024. TECHNIQUE: Ultrasound of the pelvis is performed using both transabdominal and transvaginal transducers along with Doppler. Transvaginal imaging is performed due to inadequate visualization transabdominally. FINDINGS: Uterus: The uterus is anteverted, anteflexed, and measures 7.2 x 2.6 x 4.7 cm. The cervix demonstrates numerous small nabothian cysts but is otherwise normal. The double wall endometrial thickness is 13 mm. It appears thickened and heterogeneous. The uterus is smooth in contour and has mildly heterogeneous myometrial echogenicity. No visible fibroid. Adnexa: Both ovaries are visualized. There is normal color flow to the adnexa. There is no ovarian torsion. There is no pelvic ascites or fluid collection. There are no adnexal masses. Right ovary measures 3.6 x 1.7 x 1.9 cm. Volume = 6.1 mL. Normal sonographic appearance. Left ovary measures 3.5 x 3.0 x 3.6 cm. Volume = 19.8 mL. There is a hemorrhagic cyst with lacy type echoes in the left ovary measuring 3.2 x 1.7 x 3.0 cm. US/US pelvic and transvaginal IMPRESSION: 1. Thickened and heterogeneous endometrium measuring 13 mm. This may represent hyperplasia and/or neoplasia. 2. Hemorrhagic cyst in the left ovary measuring 3.2 x 1.7 x 3.0 cm. 3. There is no free pelvic fluid. Coding Level of Care Code Established Pt Est Pt Level 4 (20914) Patient Type Established Diagnoses Left ovarian cyst N83.202 Thickened endometrium R93.89 Rheumatoid arthritis M06.9 Time Spent (min) 30 Comment Time spent on chart review, H&P, Patient education and orders. Assessment & Plan Assessment & Plan (1) Left ovarian cyst: Code(s): N83.202 - Unspecified ovarian cyst, left side Category: Medical Plan: Will give Naproxen and Tramadol for pain. Will give note to stay off work until Wednesday. Patient to follow up with MI[employer]OFIL[employer] DUPLICATING UNIT SUPERVISOR on 09/25. Patient to follow up in 8 weeks or sooner if symptoms persist or worsen. (2) Thickened endometrium: Code(s): R93.89 - Abnormal findings on diagnostic imaging of other specified body structures Category: Medical Plan: Patient to follow up with [employer]PLICATING UNIT SUPERVISOR on 09/25. Patient to follow up in 8 weeks or sooner if symptoms persist or worsen. (3) Rheumatoid arthritis: Code(s): M06.9 - Rheumatoid arthritis, unspecified Category: Medical Plan: Patient to follow up with Admitting Clerk. Plan Plan Patient was informed and verbally consented to the use of an ambient scribe for clinic note documentation during this visit. 1. Hemorrhagic Ovarian Cyst The acute pelvic pain is attributed to a left hemorrhagic ovarian cyst found on a recent ER ultrasound. An injection of Toradol in the ER provided partial pain relief. Management will focus on symptomatic relief with time, heating pads, and medications. A prescription for naproxen twice daily with food was provided for anti-inflammatory effects. Tramadol was also prescribed for more significant pain, particularly for nighttime use, after discussing its synthetic nature and potentially better tolerance given the patient's sensitivity to opiates. The patient was counseled on the potential for drowsiness with tramadol. 2. Thickened Endometrium The ultrasound finding of a thickened endometrium is abnormal for a postmenopausal patient and requires further evaluation. The patient needs to follow up with a wall mirror department supervisor for this finding, and it was noted that an endometrial biopsy will likely be necessary. The patient has a future appointment scheduled with Dr. Rendon. 3. Rheumatoid Arthritis The patient is experiencing a flare of rheumatoid arthritis, likely exacerbated by cold weather and stress from the acute pelvic issue. The patient is advised to re-establish care with a molecular biology scientist. Given the patient's stated financial barriers to specialist care, it was suggested that the patient apply online for [employer] to see if the patient qualifies for assistance with copayments. 4. Follow-Up And Work Status A work note was provided to excuse the patient from work until Wednesday. A follow-up appointment in this office is scheduled for eight weeks. Discussion Notes I discussed with the patient that the ER ultrasound showed a hemorrhagic cyst, which is the likely source of the severe pelvic pain, and that resolution can take a few weeks. I also explained that the endometrium was noted to be abnormally thick for a postmenopausal state, which requires urgent follow-up with a wall mirror department supervisor and will likely necessitate a biopsy. We discussed that the concurrent rheumatoid arthritis flare is likely exacerbated by stress and weather, and I recommended following up with a molecular biology scientist. For pain management, I prescribed short-term naproxen for inflammation and tramadol for more severe pain, particularly at night. I explained that tramadol is a synthetic opioid that may be better tolerated given the patient's sensitivity to other opiates, but counseled about potential drowsiness and the need for caution when driving. We discussed the patient's financial barriers to care, and I suggested applying for [employer] online. I provided a work note until Wednesday and scheduled a follow-up here in 8 weeks. Patient Instructions - Take Naproxen twice a day with food for pain. - You can take Tramadol for severe pain. Take it at night to start, as it may make you sleepy. Do not drive until you know how it affects you. - Use heating pads on your belly to help with the cyst pain. - It is important that you see your wall mirror department supervisor for the thickened uterine lining seen on your ultrasound. You may need a biopsy. - Follow up with your arthritis doctor (molecular biology scientist) for your joint pain flare. - You can apply for [employer] online at the [employer] website to see if you qualify for help with your doctor visit copays. - A note has been provided to keep you out of work until Wednesday. - Please schedule a follow-up appointment here in 8 weeks. Medications: New naproxen sodium with food 550 mg PO Q12H PRN 60 tabs 0RF pain tramadol 50 mg PO BID PRN 14 tabs 0RF pain 7 days
[2025-08-16 11:30] VITALS: BP 124/70; PULSE 67; TEMP 36.2; O2SAT 98; BMI 31.0
--- OUTSIDE RECORDS SUMMARY | 2025-08-16 17:46 | XMS_ITS | Clinical Summary ---
Author Organization [facility] [place] Address [address] [place] [address] Phone Care Team Providers Care Economic Development Manager Name Role Phone Zac Noriega MD Primary Care Provider [phone] Medications fludrocortisone (FLORINEF) 0.1 mg tablet Take [...] Pap smear (11/22/2019 1:31 PM EST) Pathologist [facility] Clinical Information Z12.4 LMP: 10/07/19 HX: EMILIANA 2/3 (2013) PERFORM HPV/DNA TESTING REGARDLESS OF DIAGNOSIS HISTORICAL TESTING LAB RESULTING AGENCY Cytologic Final Diagnosis Negative for intraepithelial lesion or malignancy. Yeast and pseudohyphae present consistent with Yudi species. Satisfactory for evaluation. Endocervical/trans formation zone component present. Specimen to be sent for HPV as per clinician's request. Specimen screened at [address] [address] HISTORICAL TESTING LAB RESULTING AGENCY Signed Signed by Sindhu Woods ON 11/29/2019 14:09 HISTORICAL TESTING LAB RESULTING AGENCY Comment SOURCE: CERVICAL ONLY HISTORICAL TESTING LAB RESULTING AGENCY 11/22/2019 1:31 PM EST Jose Pearce MD LAB CYTOLOGY ORDERABLES Fin al Result HISTORICAL TESTING LAB RESULTING AGENCY from Last 3 Months or Most Recently Relevant to Health Maintenance Insurance [address]UA[place]ILMAN [id number] [facility] [place] [address] Care Teams Economic Development Manager Relationship Specialty Start Date End Date Zac Noriega MD [address] [place] [address] Dr Parish MA PCP - General Unionmelt Operator 10/30/21
--- OUTSIDE RECORDS SUMMARY | 2025-08-16 17:46 | XMS_ITS | Data Portability ---
Author Organization [email or web address], [address] Address [address] [place] [address] Assessment No assessment recorded. Plan of Treatment Reminders Order Date Submit Date Provider Last Modified By Organization Details Last Modified Time Details Appointments None recorded. Lab rubella Ab, titer, serum 2022 023 [email or web address] 26 [facility], [address] [place], [address], 3 07:49:13 measles igg Ab, titer, serum 2022 023 [email or web address] 26 [facility]), [address] [place], [address], 3 07:49:14 rubella igg Ab, titer, serum 2022 023 [email or web address] 26 [facility]), [address] [place], [address], 3 07:49:14 varicella zoster virus IgG Ab, QN, IA, serum 2022 023 [email or web address] 26 [facility]), [address] [place], [address], 3 07:49:14 Referral None recorded. Procedures None recorded. Surgeries None recorded. Imaging None recorded. Medication Orders None recorded. Patient TargetsNo targets recorded. Patient Instructions Encounter Date Encounter Id Patient Instructions Last Modified By Organization Details Last Modified Time 12/28/2022 [id number] This physical does not replace the annual [...] Time Tdap 12/29/2022 completed Salma Nino MD [address] [place] [address] [place], [address] [place] - [facility] 12/29/2022 20:19:52 Past Encounters Encounter ID Performer Location Encounter Start Date Encounter Closed Date Diagnosis/Indication Diagnosis SNOMED-CT Code Diagnosis ICD10 Code Diagnosis IMO Codes Diagnosis Note [id number] [place]abe[place] [address] [address] 12/28/2022 10:37:35 12/28/2022 14:18:42 History and physical examination, occupation 994803906 Z02.1 Antibody measurement 352 7003 Z01.84 History an d physical examination, pre-employment [id number] Z02.1 [id number] Salma Nino MD [address] Alea Perdue [address] [place] [id number] 12/29/2022 12:12:01 12/29/2022 14:06:05 History and physical examination, occupation [id number] Z02.1 Health Concerns Section Related Observation LastModified by Organization Detai ls LastModified Time None Recorded Concern Status LastModified by Organization Details LastModified Time None Recorded Advance Directives Directive None Recorded Payers Insurance Date Sequence Insurance Name Policy Number Policy Babb Covered Member ID Babb Member ID Guarantor Name 12/29/2022 OC-ESCREEN Georgie Valencia [id number] Georgie Valencia 12/28/2022 OC-ESCREEN Georgie Valencia [id number] Georgie Valencia Notes Date Note Type Note Provider Name a nd Address Organization Details Recorded Time 12/28/2022 text/html physical Murtaza ANGELITA Cabezas [address] [place], [address], [place] - [facility] 12/28/2022 14:08:04 OBGyn Episode No OBEpisode recorded.
--- OUTSIDE RECORDS SUMMARY | 2025-08-16 17:46 | XMS_ITS | Clinical Summary ---
Author Organization [facility] Address [address] [place] [address] Care Team Providers Care Electronic Device Monitor Name Role Phone Zac Noriega MD Primary Care Provider [phone] Allergies Active Allergy Reactions Criticality Noted Date [...] age to complete this topic Care Teams Electronic Device Monitor Relationship Specialty Start Date End Date Zac Noriega MD [address] [place] [address] [address] [place] [address] PCP - General Air And Missile Defense Crewmember 10/30/21
== END 2025-08-16 12:07 | disposition home or self-care (01) ==
LOC: HO.HMCHD 11:29
PROVIDERS: Visit Provider Physician Assistant Medical
DX: N83.202 Unspecified ovarian cyst, left side (principal); R93.89 Abnormal findings on diagnostic imaging of other specified body structures; M06.9 Rheumatoid arthritis, unspecified

== ENCOUNTER 2025-08-20 16:25 | Emergency (ER) | payer SELFPAY ==
--- NOTE | ~2025-08-20 | US_ITS ---
CLINICAL HISTORY: Vaginal Bleeding US pelvis transabdominal and transvaginal with Doppler Comparison: US/SR - US PELVIS TRANSABDOMINAL AND TRANSVAGINAL - 08/14/25 09:18 EST Findings: Transabdominal scanning performed for overall anatomy. Transvaginal scanning performed for additional detail. Anteverted uterus is 7 x 3.1 x 4.1 cm length. Normal myometrium. No endometrial lesion, 6 mm thickness versus 13 mm on 08/14/2025. Three separate nabothian cysts present. Right ovary 2.7 x 1.5 x 1.1 cm. Left ovary 2.5 x 1.1 x 1.9 cm. Interval nonvisualization of prior complex cyst from 08/14/2025. Normal color Doppler with arterial/venous Doppler of both ovaries. No free fluid. IMPRESSION: 1. Normal pelvic ultrasound with Doppler. No evidence of ovarian torsion. This document has been electronically signed by: Faraz Ramey MD on 08/20/2025 18:33:25
[2025-08-20 16:32] VITALS: BP 125/78; PULSE 76; RESP 18; TEMP 36.9; O2SAT 94; BMI 31.2
--- NOTE | 2025-08-20 17:15 | ED.FEMALEGU ---
HPI - Female Genitourinary General Chief complaint: Vaginal Bleeding Stated complaint: extreme heavy vagina bleeding, was told to return Time Seen by Provider: 08/20/25 16:48 History of Present Illness ED Provider: Swati Scott HPI Narrative: 45-year-old female with a medical history that is significant for amenorrhea, perimenopausal, ovarian cysts and PCOS, chronic pelvic pain, asthma, prior SVT presents to the ED for evaluation reporting heavy vaginal bleeding. The patient was seen in our ED on 08/14/2025, approximately 6 days ago with complaints of pelvic pain, dye dose at that time with a hemorrhagic ovarian cyst. She reports 3-4 days after that noting some light vaginal spotting and a mild decrease in pain. She then developed heavy vaginal bleeding yesterday that felt similar to a prior menstrual cycle, and when leaving work around 2:30 p.m. today, heavy vaginal bleeding that felt like a gush of fluid. Denies any dizziness, lightheadedness. Does report feeling general fatigue. No abdominal pain, nausea, vomiting, diarrhea or constipation. She reports this feels similar to a previous miscarriage. No fever, chills. Does report that the bleeding smells abnormal. No recent sexual intercourse since diagnosis of ovarian cyst. Related Data Home Medications ?Medication ?Instructions ?Recorded ?Confirmed acetaminophen 650 mg 650 - 1,300 mg PO Q8H PRN Pain 02/27/21 08/16/25 tablet,extended release Previous Rx's ?Medication ?Instructions ?Recorded bisacodyl 5 mg tablet,delayed 20 mg (4 x 5 mg) PO ONCE 1 day #4 04/24/25 release (Dulcolax (bisacodyl)) tabs polyethylene glycol 3350 17 238 g PO ONCE #238 grams 04/24/25 gram/dose oral powder (Miralax) ondansetron 4 mg disintegrating 4 mg PO Q8H PRN nausea and 08/14/25 tablet vomiting #14 tabs naproxen sodium 550 mg tablet 550 mg PO Q12H PRN pain #60 tabs 08/16/25 tramadol 50 mg tablet 50 mg PO BID PRN pain 7 days #14 08/16/25 tabs cefpodoxime 200 mg tablet 200 mg PO Q12H 7 days #14 tabs 08/20/25 Allergies Allergy/AdvReac Type Severity Reaction Status Date / Time bee pollen Allergy Severe Anaphylaxis Verified 08/20/25 16:37 oxycodone Allergy Severe Hives Verified 08/20/25 16:37 shellfish derived Allergy Severe Anaphylaxis Verified 08/20/25 16:37 Opioids - Morphine Analogues Allergy Intermediate HIVES Verified 08/20/25 16:37 (OPIOIDS - MORPHINE ANALOGUES) aspirin (ASA) Allergy Unknown Gastrointestinal Verified 08/20/25 16:37 Hemorrhage sulfamethoxazole (From Allergy Unknown Hives Verified 08/20/25 16:37 BACTRIM) trimethoprim (From BACTRIM) Allergy Unknown Rash Verified 08/20/25 16:37 Penicillins AdvReac Intermediate Unknown Verified 08/20/25 16:37 Review of Systems Review of Systems: ROS is otherwise negative unless mentioned in HPI. [facility] Past Medical History Medical History (Updated 08/20/25 @ 18:38 by Swati Scott [facility]) Rheumatoid arthritis Thickened endometrium Left ovarian cyst Right upper quadrant pain Loose stools Abdominal bloating Nausea Colon cancer screening Hot flashes Family history of breast cancer Cyst of right breast Ovarian cyst Pelvic pain in female Abnormal Pap smear of cervix Breast pain Smoking PCOS (polycystic ovarian syndrome) Asthma Other cyst of bone, right shoulder Miscarriage Cervical cancer SVT (supraventricular tachycardia) Hypotension Epilepsy Surgical History Hx of spinal surgery History of loop electrical excision procedure (LEEP) [place] teeth extracted Family History Family History (Updated 08/16/25 @ 11:36 by Concepcion Davenport MA) Mother Breast cancer, Onset Age: 66 Mental health disorder Maternal Grandfather Colon cancer Father Dementia Mental health disorder Social History Social History Housing: House Alcohol intake: never Patient Tobacco Use Status: Former Tobacco user Cigarette Packs Per Day: 10 e-Cigarette/Vaping Use: Former Use Advance Directives: No Advance Directives Information Provided: No Do you have a plan to hurt others: No Plan Current occupational status: employed Gender identity: Female Cognitive needs: No Hearing needs: No Vision needs: No Physical Exam Exam: Exam: Nursing notes and vital signs reviewed. Constitutional: Well-appearing, NAD. Alert. Oriented X3. Eyes: EOMI. Neck: Normal inspection. Neck supple. CVS: Normal heart rate and rhythm. Pulses normal. Respiratory: No respiratory distress. Abdomen: Soft and nontender. No CVA tenderness bilaterally. Pelvic: Cervical os closed. No CMT. No adnexal tenderness. Moderate amount of vaginal bleeding in canal, no clots. Skin: Skin warm and dry. Normal skin color. Extremities: No lower extremity edema. Neuro: Oriented X 3. No motor deficit. Vital Signs: Vital Signs: Last Vital Signs Temp 98.5 F 08/20/25 16:32 Pulse 76 08/20/25 16:32 Resp 18 08/20/25 16:32 BP 125/78 08/20/25 16:32 Pulse Ox 94 08/20/25 16:32 O2 Del Method Room Air 08/20/25 16:32 BMI result Body Mass Index 31.2 Medications Administered Generic Name Dose Route Start Last Admin Trade Name Freq PRN Reason Stop Dose Admin Ceftriaxone Sodium 1 gm/ 50 mls @ 100 mls/hr 08/20/25 18:08 08/20/25 18:12 Sodium Chloride IV 08/20/25 18:37 100 mls/hr ONCE ONE Administration Medical Decision Making Medical Decision Making [facility] Narrative: She appears well on my initial exam. Color is good. Reporting heavy vaginal bleeding. I personally evaluated this patient 6 days ago when she was in the ED with pelvic pain, at that time she was diagnosed with a hemorrhagic ovarian cyst. I recommended she follows up with OBGYN but she has not done that yet. She noticed some spotting about 4 days after that, and reports that it feels very heavy. Plan for pelvic exam, repeat transvaginal ultrasound, repeat labs to assess for anemia and reassessment. Reports pain has improved, no indication for pain medication while in the ED. 1809-- labs are stable, most specifically h/h. UA is positive for nitrites. Ordered 1 g rocephin and informed patient. pending us results. 1849-- upon review of the [place], the ovarian cyst that was previously seen 6 days ago was no longer found. The thickness of the endometrium has also decreased from 13 mm to 6 mm. It is possible that her bleeding is due to the ruptured cyst. She also has UTI, which I treated her for while in the ED. I will send her home with a prescription for oral antibiotics and have her follow up outpatient with primary care. Patient is agreeable, expressed understanding. Provided strict return precautions to the ED. Differential Diagnosis Differential Diagnoses: The differential diagnosis associated with the presentation includes Abnormal vaginal bleeding, ovarian cyst rupture, hematuria, cystitis, pyelonephritis, renal stone Admission/Observation Consideration of admission/observation: Escalation of care including admission/observation considered (Not indicated given stable results.) Lab Data MDM Lab Attestation statement: I reviewed the patient's lab results. (Reassuring, stable H&H.) 08/20/25 17:32 08/20/25 17:32 Labs: Lab Results 08/20/25 08/20/25 Range/Units 17:32 17:51 WBC 7.7 (4.8-10.8) X10*3/uL RBC 5.06 (4.20-5.50) X10*6/uL Hgb 14.9 (12.0-16.0) g/dl Hct 44.0 (37.0-47.0) % MCV 87.0 (80.0-98.0) fL MCH 29.4 (27.0-33.0) pg MCHC 33.9 (31.0-35.0) g/dl RDW 12.6 (11.0-16.0) % Plt Count 261 (160-400) X10*3/uL MPV 8.1 L (9.4-12.3) fL Immature Gran % (Auto) 0.3 (0.0-0.4) % Neut % (Auto) 64.5 (45-73) % Lymph % (Auto) 26.9 (20-40) % [place] % (Auto) 6.1 (2-11) % Eos % (Auto) 1.7 (0-4) % Baso % (Auto) 0.5 (0-2) % Lymph # (Auto) 2.1 (1.2-4.9) X10*3/uL [place] # (Auto) 0.5 (0.1-1.2) X10*3/uL Eos # (Auto) 0.1 (0.0-0.4) X10*3/uL Baso # (Auto) 0.0 (0.0-0.2) X10*3/uL Abs Immat Gran (auto) 0.02 (0.00-0.03) X10*3/uL Absolute Neuts (auto) 5.0 (2.0-8.3) x10*3/uL Absolute Nucleated RBC 0.000 (0.0-0.012) X10*3/uL Nucleated RBC % (auto) 0.0 (0.0-0.2) /100WBC Sodium 142 (135-145) mmol/L Potassium 3.8 (3.3-5.1) mmol/L Chloride 109 H (96-108) mmol/L Carbon Dioxide 27 (22-29) mmol/L Anion Gap 10 L (12-20) BUN 11 (9-16) mg/dL Creatinine 0.64 (0.5-1.4) mg/dL Estim Creat Clear Calc 111.1 Estimated GFR > 60 Random Glucose 110 (60-115) mg/dL Calcium 9.4 (8.4-10.2) mg/dL Beta HCG, Quant < 2 mIU/mL Urine Color RED Urine Appearance Turbid Urine pH 7.5 (5.0-9.0) Ur Specific [place] 1.015 (1.005-1.025) Urine Protein 300 (3+) H (Neg-Trace) mg/dL Urine Glucose (UA) Negative (Negative) mg/dL Urine Ketones 15 (Negative) mg/dL Urine Blood Large (3+) H (Negative) Urine Nitrite Positive H (Negative) Ur Leukocyte Esterase Moderate (2+) H (Negative) Urine RBC >20 H (0-2) /HPF Urine WBC 21-50 (0-5) /HPF Ur Squamous Epith Cells 3-5 (0-2) /HPF Urine Bacteria 1+ (None Seen) Hyaline Casts 0-2 (0-2) /LPF Independent Interpretation I performed an independent interpretation of an: Ultrasound Interpretation: I have reviewed the patient's imaging and agree with the radiologist's findings. Radiology Impression Discussion of test interpretation with radiology: I have reviewed the radiologist's reading. Radiologist Impression: IMPRESSION: 1. Normal pelvic ultrasound with Doppler. No evidence of ovarian torsion. Independent Historian None External Record Review External record reviewed: Office record Chronic Conditions Patient?s care impacted by: Other (PCOS) Social Determinants Patient?s care significantly limited by Social Determinants of Health including: Problems related to primary support group Discharge Plan Discharge Clinical Impression: Abnormal vaginal bleeding UTI (urinary tract infection) Qualifiers: Urinary tract infection type: site unspecified Hematuria presence: with hematuria Qualified Code(s): N39.0 - Urinary tract infection, site not specified Patient Disposition: Home, Self-Care Instructions: Abnormal (Dysfunctional) Uterine Bleeding (ED), Urinary Tract Infection in Women (DC) Additional Instructions: As we discussed, your ultrasound today no longer shows an ovarian cyst, and it is possible that the ovarian cyst that you had 6 days ago has since ruptured. You had a moderate amount of vaginal bleeding, however your blood counts are normal today and similar to your last visit. The urinalysis testing however does show that you have an underlying urinary tract infection. To treat this, we gave you a 1 time dose of IV antibiotics. I have also prescribed you a course of oral antibiotics. Please take the full course of antibiotic as prescribed. Please follow up with OBGYN outpatient within the next 1-3 days. With any worsening complaints at any time, seek re-evaluation in the ED. Prescriptions: New cefpodoxime 200 mg tablet 200 mg PO Q12H 7 Days Qty: 14 0RF Rx Instructions: must administer with a meal/food No Action ondansetron 4 mg tablet,disintegrating 4 mg PO Q8H PRN (Reason: nausea and vomiting) Qty: 14 0RF acetaminophen 650 mg tablet extended release 650 - 1,300 mg PO Q8H PRN (Reason: Pain) tramadol 50 mg tablet 50 mg PO BID PRN (Reason: pain) 7 Days Qty: 14 0RF naproxen sodium 550 mg tablet 550 mg PO Q12H PRN (Reason: pain) Qty: 60 0RF Rx Instructions: with food bisacodyl [Dulcolax (bisacodyl)] 5 mg tablet,delayed release (DR/EC) 20 mg PO ONCE 1 Days Qty: 4 0RF Rx Instructions: Take four tablets pre colonoscopy instructions polyethylene glycol 3350 [Miralax] 17 gram/dose powder 238 g PO ONCE Qty: 238 0RF Rx Instructions: per colonoscopy prep instructions [place] [facility] [place] [facility] [place] Mariam Moise PA [Primary Care Provider, Hospitalist] Stand Alone Forms: Work/School Release Print Language: Honduran
[2025-08-20 17:36] LABS: MANUAL DIFF FLAG NO
[2025-08-20 17:38] LABS: Hematocrit 44.0 % (37.0-47.0); Hemoglobin 14.9 g/dl (12.0-16.0); Imm Gran Abs Auto 0.02 X10*3/uL (0.00-0.03); Imm Gran Pct Auto 0.3 % (0.0-0.4); Lymphocytes Absolute Auto 2.1 X10*3/uL (1.2-4.9); Mean Corpuscular HGB Conc 33.9 g/dl (31.0-35.0); Mean Corpuscular Hemoglobin 29.4 pg (27.0-33.0); Mean Corpuscular Volume 87.0 fL (80.0-98.0); NRBC Abs Auto 0.000 X10*3/uL (0.0-0.012); NRBC Pct Auto 0.0 /100WBC (0.0-0.2); Platelet Count 261 X10*3/uL (160-400); Red Blood Count 5.06 X10*6/uL (4.20-5.50); White Blood Count 7.7 X10*3/uL (4.8-10.8)
[2025-08-20 17:49] LABS: Anion Gap 10 (12-20); Blood Urea Nitrogen 11 mg/dL (9-16); Calcium 9.4 mg/dL (8.4-10.2); Carbon Dioxide 27 mmol/L (22-29); Chloride 109 mmol/L (96-108); Creatinine Clr Calc Pharmacy 111.1; Estimated Glomerular Filt Rate > 60; Potassium 3.8 mmol/L (3.3-5.1); Sodium 142 mmol/L (135-145)
[2025-08-20 17:58] LABS: Appearance Urine Turbid; Glucose Urine UA Negative (Negative); PH 7.5 (5.0-9.0); Specific Gravity - Urine 1.015 (1.005-1.025); UMIC TRIGGER UACC YES
[2025-08-20 18:17] LABS: UACC Culture Trigger YES
[2025-08-20 19:10] VITALS: BP 125/78; PULSE 76; RESP 18; TEMP 36.9; O2SAT 94
--- OUTSIDE RECORDS SUMMARY | 2025-08-20 20:34 | XMS_ITS | Data Portability ---
Author Organization [facility], [address] Address [address] [place] [address] Assessment No assessment recorded. Plan of Treatment Reminders Order Date Submit Date Provider Last Modified By Organization Details Last Modified Time Details Appointments None recorded. Lab rubella Ab, titer, serum 2022 023 [email or web address] 26 [facility], [address] [place], [address], 3 07:49:13 measles igg Ab, titer, serum 2022 023 [email or web address] 26 [facility], [address] [place], [address], 3 07:49:14 rubella igg Ab, titer, serum 2022 023 [email or web address] 26 [facility]), [address] [place], [address], 3 07:49:14 varicella zoster virus IgG Ab, QN, IA, serum 2022 023 [email or web address] 26 [facility]), [address] [place], [address], 3 07:49:14 Referral None recorded. Procedures None recorded. Surgeries None recorded. Imaging None recorded. Medication Orders None recorded. Patient TargetsNo targets recorded. Patient Instructions Encounter Date Encounter Id Patient Instructions Last Modified By Organization Details Last Modified Time 12/28/2022 [id number] This physical does not replace the annual [...] Time Tdap 12/29/2022 completed Salma Nino MD [address] [place] [address] [place], [address] [place] - [facility] 12/29/2022 20:19:52 Past Encounters Encounter ID Performer Location Encounter Start Date Encounter Closed Date Diagnosis/Indication Diagnosis SNOMED-CT Code Diagnosis ICD10 Code Diagnosis IMO Codes Diagnosis Note [id number] [place] [address] [address] 12/28/2022 10:37:35 12/28/2022 14:18:42 History and physical examination, occupation 212387921 Z02.1 Antibody measurement 352 7003 Z01.84 History an d physical examination, pre-employment 182776740 Z02.1 [id number] Salma Nino [place] [address] [place] [address] [place] [phone] 12/29/2022 12:12:01 12/29/2022 14:06:05 History and physical examination, occupation [id number] Z02.1 Health Concerns Section Related Observation LastModified by Organization Detai ls LastModified Time None Recorded Concern Status LastModified by Organization Details LastModified Time None Recorded Advance Directives Directive None Recorded Payers Insurance Date Sequence Insurance Name Policy Number Policy Babb Covered Member ID Babb Member ID Guarantor Name 12/29/2022 OC-ESCREEN Georgie Valencia [id number] Georgie Valencia 12/28/2022 OC-ESCREEN Georgie Valencia [id number] Georgie Valencia Notes Date Note Type Note Provider Name a nd Address Organization Details Recorded Time 12/28/2022 text/html physical Murtaza ANGELITA Cabezas [address] [place], [address], [place] - [facility] 12/28/2022 14:08:04 OBGyn Episode No OBEpisode recorded.
--- OUTSIDE RECORDS SUMMARY | 2025-08-20 20:35 | XMS_ITS | Clinical Summary ---
Author Organization [facility] Address [address] [place] [address] Care Team Providers Care Performance Improvement Coordinator Name Role Phone Zac Noriega MD Primary Care Provider [phone] Allergies Active Allergy Reactions Criticality Noted Date [...] age to complete this topic Care Teams Performance Improvement Coordinator Relationship Specialty Start Date End Date Zac Noriega MD [address] [place] [address] [address] [place] [address] PCP - General Communications Senior Associate 10/30/21
--- OUTSIDE RECORDS SUMMARY | 2025-08-20 20:35 | XMS_ITS | Clinical Summary ---
Author Organization [facility] [employer] [place] Address [address] [place] [address] Phone Care Team Providers Care Car Park Attendant Name Role Phone Zac Noriega MD Primary Care Provider [phone] Medications fludrocortisone (FLORINEF) 0.1 mg tablet Take [...] Pap smear (11/22/2019 1:31 PM EST) Pathologist [facility] Clinical Information Z12.4 LMP: 10/07/19 HX: EMILIANA 2/3 (2013) PERFORM HPV/DNA TESTING REGARDLESS OF DIAGNOSIS HISTORICAL TESTING LAB RESULTING AGENCY Cytologic Final Diagnosis Negative for intraepithelial lesion or malignancy. Yeast and pseudohyphae present consistent with Yudi species. Satisfactory for evaluation. Endocervical/trans formation zone component present. Specimen to be sent for HPV as per clinician's request. Specimen screened at [address] [address] HISTORICAL TESTING LAB RESULTING AGENCY Signed Signed by Sindhu Woods ON 11/29/2019 14:09 HISTORICAL TESTING LAB RESULTING AGENCY Comment SOURCE: CERVICAL ONLY HISTORICAL TESTING LAB RESULTING AGENCY 11/22/2019 1:31 PM EST Jose Pearce MD LAB CYTOLOGY ORDERABLES Fin al Result HISTORICAL TESTING LAB RESULTING AGENCY from Last 3 Months or Most Recently Relevant to Health Maintenance Insurance [address] [place] [id number] [facility] Care Teams Car Park Attendant Relationship Specialty Start Date End Date Zac Noriega MD [address] [place] [address] Dr [place] PCP - General Contract Mail Carrier 10/30/21
[2025-08-20 23:14] LABS: Bacterial Vaginosis PCR NEGATIVE (Negative); Candida Group PCR NOT DETECTED (Not Detect); Candida glab krusei PCR NOT DETECTED (Not Detect); Trichomonas vaginalis PCR NOT DETECTED (Not Detect)
[2025-08-20 23:46] LABS: CT PCR NOT DETECTED (Not Detect.); NG PCR NOT DETECTED (Not Detect.)
== END 2025-08-20 19:10 | disposition home or self-care (01) ==
PROVIDERS: Nurse Practitioner; Emergency Provider Emergency Medicine; PCP Physician Assistant
DX: N93.9 Abnormal uterine and vaginal bleeding, unspecified (principal); N39.0 Urinary tract infection, site not specified; Z20.2 Contact with and (suspected) exposure to infections with a predominantly sexual mode of transmission; E28.2 Polycystic ovarian syndrome
CPT/HCPCS: 36415; 76830; 76856; 80048; 81001; 81515; 84702; 85025; 87086; 87491; 87591; 96365; 99284; J0696

== ENCOUNTER → 2025-08-20 17:16 | Outpatient (BNV) | payer OTHER, SELFPAY | PROVIDERS: Emergency Provider Emergency Medicine; PCP Physician Assistant; Visit Provider Radiology Diagnostic Radiology | DX: N93.9 Abnormal uterine and vaginal bleeding, unspecified (principal) | CPT/HCPCS: 76830; 76856 ==